=== PATIENT | male | born 1940 | race Hispanic/Latino ===

== ENCOUNTER 2017-05-17 11:01 | Observation (INO) | payer OTHER ==
[2017-05-17 12:32] LABS: Bilirubin Negative (Negative); Blood, Urine Large (Negative); Glucose, Urine (Dipstick) Negative (Negative); Ketone, Urine Negative (Negative); Nitrite Negative (Negative); Protein, Urine (Dipstick) 30 mg/dL (Neg-Trace); Urobilinogen 0.2 mg/dL (0.2-1.0)
[2017-05-17 12:34] LABS: Bacteria/HPF 2+ HPF (None Seen); Hyaline Casts/LPF 0-3 HYALINE CAST LPF (0-3 Hyaline); RBC/HPF GREATER THAN 50-TNTC HPF (0-3); Squamous Epithelial None Seen HPF (0-3)
[2017-05-17 12:38] LABS: Hematocrit 45.5 % (42.0-52.0); Mean Platelet Volume 7.5 fL (7.4-10.4); Red Blood Cell (RBC) Count 4.96 mill/uL (4.70-6.10); White Blood Cell (WBC) Count 14.1 thou/uL (4.8-10.8)
[2017-05-17 12:52] LABS: Lactic Acid - Sepsis 1.3 mmol/L (0.5-2.2)
[2017-05-17 12:56] LABS: Band 2 % (5-11); Neutrophil 92 % (42-75)
[2017-05-17 12:57] LABS: ALT (SGPT) 12 U/L (8-55); AST (SGOT) 12 U/L (5-34); Alkaline Phosphatase 108 U/L (40-150); Anion Gap 11 mmol/L (10-20); BUN (Urea Nitrogen) 24 mg/dL (8.4-25.7); Bilirubin, Total 1.3 mg/dL (0.2-1.2); Calc. Creatinine Clearance 0 mL/min (70-130); Carbon Dioxide 27 mmol/L (23-31); Chloride 102 mmol/L (98-107); Estimated GFR-MDRD 72; Globulin 3.5 g/dL (2.4-3.5); Protein, Total 7.4 g/dL (5.8-8.1)
[2017-05-17] MEDS ORDERED: Nitroglycerin 0.4 MG TAB (25 Tab Bottle) ONE (13:53)
--- NOTE | 2017-05-17 14:44 | RAD ---
CHEST 1 VIEW: HISTORY: Chest pain. COMPARISON: Chest 1 view 04/12/16. FINDINGS: The heart size is enlarged. Cardiac device is similar. No pneumothorax. Faint right lower lobe airspace IMPRESSION: Faint right lower lobe airspace opacity may represent atelectasis or infection. Followup recommende d. POS: [facility]
[2017-05-17 15:14] LABS: CK (CPK) 38 U/L (30-200); Lipase 7 U/L (8-78)
[2017-05-17 15:22] LABS: Troponin I 0.035 ng/mL (< 0.028)
[2017-05-17] MEDS ORDERED: cefTRIAXone\\ROCEPHIN 2 GM VIAL ONE (15:33)
--- NOTE | 2017-05-17 15:47 | HP ---
PRIMARY CARE PHYSICIAN: [facility], so this is city call admission. REASON FOR ADMISSION: Urinary tract infection, altered mental status and chest pain. HISTORY OF PRESENT ILLNESS: A 76-year-old male who has history of benign enlargement of prostate and he has chronic indwelling catheter. His catheter is underneath of his penis. He required almost 4 emergency room visits for catheter related problem. At this time, he came to the ER because he was having dysuria. His urine was foul smelling and he was not able to void for about 1 day. Today, he was appeared altered and that is why the patient's son brought him to the emergency room and when he was coming to the emergency room, he complained mild chest pain. He denies any angina. He denies any shortness of breath, orthopnea, PND or leg swelling. He denies any constipation or diarrhea. He denies any fever or chills. Patient does have problems with leakage of urine around catheter. Patient was recently given medications Flomax, which he is taking every day basis for the last 2-3 months. Patient was given another medication, which seems to be Proscar, which he finished and he is no longer taking those medications. At this point, the patient worried about he is unable to void through the catheter. The patient's family member reports that last time he has similar problem and at that time, he required a Alonso catheter changed and problem was solved. REVIEW OF SYSTEMS: The following complete review of systems was negative, unless otherwise mentioned in the HPI or below: CONSTITUTIONAL: Weight loss or gain, ability to conduct usual activities. SKIN: Rash, itching. EYES: Double vision, pain. ENT/MOUTH: Nose bleeding, neck stiffness, pain, tenderness. CARDIOVASCULAR: Palpitations, dyspnea on exertion, orthopnea. RESPIRATORY: Shortness of breath, wheezing, cough, hemoptysis, fever or night sweats. GASTROINTESTINAL: Poor appetite, abdominal pain, heartburn, nausea, vomiting, constipation, or diarrhea. GENITOURINARY: Urgency, frequency, dysuria, nocturia. MUSCULOSKELETAL: Pain, swelling. NEUROLOGIC/PSYCHIATRIC: Anxiety, depression. ALLERGY/IMMUNOLOGIC: Skin rash, bleeding tendency. Please see my HPI for pertinent positive and negative. All other review of systems reviewed and negative except as mentioned in the HPI. PAST MEDICAL HISTORY: History of [place] in 2015, history of systolic congestive heart failure secondary to ischemic cardiomyopathy, coronary artery disease requiring CABG as well as stent placement, hypertension, dyslipidemia, COPD, history of tobacco abuse disorder, benign enlargement of prostate, recurrent urinary tract infection due to indwelling catheter. PAST SURGICAL HISTORY: CABG x4, stent placement x2 in 2014, AICD placement, hernia repair, appendicectomy. PAST PSYCHIATRIC HISTORY: Reviewed and negative. ALLERGIES: No known drug allergies. FAMILY HISTORY: The patient's father had prostate cancer and mother had Alzheimer's dementia. One brother also had a stroke by age of 69. SOCIAL HISTORY: Patient has a [id number] smoking history. He denies any alcohol or other illicit drug abuse. He lives at home with his son. EMERGENCY ROOM COURSE: The patient is given nitroglycerin 0.4 mg, aspirin 324 mg and IV fluid. CURRENT HOME MEDICATIONS: The patient does not have any medication with him in the emergency room at this point and patient's son is present at bedside, who also does not know the name of medication. He is going to obtain all medication bottle from his home, at that time we will review. PHYSICAL EXAMINATION: VITAL SIGNS: Currently, blood pressure 113/69, pulse 82, respiratory rate 17, temperature 97.6, saturation 98% on room air. Weight 72.5 kilograms. GENERAL: Patient is currently alert, awake, no obvious acute distress. HEAD: Normocephalic, atraumatic. Eyes: Pupils round, reactive to light. Extraocular muscle intact. ENT: Oropharynx within normal limits. Moist mucous membranes. No oral lesions. No pharyngeal erythema, no exudate. NECK: Supple. Range of motion is normal. No meningeal signs of irritation. LUNGS: Clear to auscultation without any rhonchi or rales. CARDIAC: S1, S2 regular. No murmur elicited, no gallop, no rub. ABDOMEN: Soft, bowel sounds present, nontender, nondistended. No organomegaly , no mass. Mild suprapubic discomfort noted. BACK: Unremarkable, no CVA tenderness. GENITALIA: The patient does have a Alonso catheter underneath of penis. Patient has hypospadias. NEUROLOGIC: Nonfocal examination. The patient moves all 4 limbs. Plantar bilateral flexor. No focal neurological deficit noted. Patient's speech is normal. Per patient's son, patient is in his normal function. SKIN: No skin rash. HEMATOLOGIC: No lymphadenopathy. PSYCHIATRIC: Normal affect. SIGNIFICANT LABS: 1. CBC: WBC 14.1, hemoglobin 15.0, platelets 167,000 with bandemia. BMP: Sodium 136, potassium 4.4, chloride 102, carbon dioxide 27, BUN 24, creatinine 1.0, glucose 128, calcium 10.0. Lactic acid 1.3. 2. LFT: AST 12, ALT 12, alkaline phosphatase 108, albumin 3.9. Urinalysis suggestive of urinary tract infection with large blood and bacteria 2+. Alcohol level less than 10. 3. EKG showing sinus rhythm, bundle branch block pattern, which is old. No change from previous. Chest x-ray based on my review, no acute cardiopulmonary process. There is question of mild right lower lobe infiltration noted. ASSESSMENT AND PLAN/IMPRESSION: 1. Urinary tract infection related with chronic indwelling Alonso catheter. This patient has dysuria. He has difficulty voiding as well as he has underlying benign enlargement of prostate and hypospadias. At this point, the patient requires recurrent emergency room visits for recurrent urinary catheter related problem. We will consult Urology for their opinion. We will start empiric antibiotic therapy with Rocephin 1 gram q.24 hours and Levaquin 500 mg IV daily. We will follow up on urine culture result. 2. Right lower lobe infiltration, suspected for pneumonia. This patient does not have any symptoms of pneumonia at this point and he complained of some chest pain. At this point, the patient is on Rocephin and Levaquin for urinary tract infection that should cover for pneumonia as well. 3. Chest pain. We will do serial cardiac enzymes x3 to rule out acute coronary syndrome. This patient's chest pain description is very vague and does not sound like any anginal or cardiac pain. We will not perform more further testing other than serial cardiac enzyme and monitoring to telemetry floor. We will continue with aspirin 325 mg p.o. daily and check lipid profile tomorrow morning for risk stratification. 4. History of coronary artery disease requiring coronary artery bypass graft. Patient will be on aspirin therapy. We will also obtain the patient's home medication and once we will verify patient's home medications, then will continue while in hospital as well. Currently, problem is stable. We will monitor on telemetry floor. 5. Dyslipidemia. We will resume patient's home medication for dyslipidemia. 6. History of chronic systolic heart failure. The patient does not have any echocardiography in the last several years. We will repeat echocardiography to assess ejection fraction and other structural abnormality. We will monitor on telemetry floor. Patient is currently euvolemic. 7. Tobacco abuse disorder. Smoking cessation counseling given. Healthy lifestyle measures discussed with the patient. 8. Benign enlargement of prostate. We will continue the Flomax 0.4 mg p.o. daily and will also add Proscar 5 mg p.o. daily. 9. Hypospadias. Patient does have a Alonso catheter through that, but this patient may need evaluation for suprapubic catheter placement. We are consulting Urology for this problem as well. 10. Deep venous thrombosis prophylaxis not needed because we are expecting discharge in 24 hours. 11. Gastrointestinal prophylaxis, Pepcid 20 mg p.o. b.i.d. 12. Code status: The patient is FULL CODE. Patient's son is surrogate decision maker. Disposition plan based on clinical course, we are expecting patient's stay in hospital for 24-48 hours. Plan of care discussed with the patient and patient' s son at bedside in the emergency room. LAURIE
[2017-05-17 15:50] LABS: Troponin I 0.036 ng/mL (< 0.028)
[2017-05-17 15:56] LABS: Amphetamine Not Detected (NotDetected); Methadone Not Detected (NotDetected); Methamphetamine Not Detected (NotDetected)
[2017-05-17] MEDS ORDERED: Gentamicin Sulfate 360 MG in Sodium Chloride 0.9% 100 ML IVPB SCH (16:15)
[2017-05-17] MEDS ORDERED: Zolpidem Tartrate 5 MG TAB PO PRN (17:05)
[2017-05-17] MEDS ORDERED: Diabetic Tussin 200 MG/10 ML UDCUP PO PRN (17:05)
[2017-05-17] MEDS ORDERED: Loratadine 10 MG TAB PO PRN (17:05)
[2017-05-17] MEDS ORDERED: Nitroglycerin 0.4 MG TAB (25 Tab Bottle) SL PRN (17:05)
[2017-05-17] MEDS ORDERED: Loperamide HCl 2 MG CAP PO PRN (17:05)
[2017-05-17] MEDS ORDERED: Ondansetron HCl/PF 4 MG/2 ML Vial IVP PRN (17:05)
[2017-05-17] MEDS ORDERED: Mag-Al 1200 mg/1200 mg/30 ML UDCUP PO PRN (17:05)
[2017-05-17] MEDS ORDERED: Sodium Chloride 0.65% Nasal 44 ML BOT EA NARE PRN (17:05)
[2017-05-17] MEDS ORDERED: hydrALAZINE 20 MG/ML VIAL SLOW IVP PRN (17:05)
[2017-05-17] MEDS ORDERED: Eucerin (Mineral Oil/Petrolatum,White) 30 gm Jar TOP PRN (17:05)
[2017-05-17] MEDS ORDERED: HYDROcodone/Acetaminophen 5/325 mg Tablet PO PRN (17:05)
[2017-05-17] MEDS ORDERED: Artificial Tears 18 DROP/0.9 ML EA EYE PRN (17:05)
[2017-05-17] MEDS ORDERED: Acetaminophen 325 MG TAB PO PRN (17:05)
[2017-05-17] MEDS ORDERED: cefTRIAXone\\ROCEPHIN 1 GM in Sodium Chloride 0.9% 100 ML IVPB SCH (17:05)
[2017-05-17] MEDS ORDERED: Ondansetron ODT 4 MG TAB PO PRN (17:05)
[2017-05-17] MEDS ORDERED: Senokot 8.6 MG TAB PO PRN (17:05)
[2017-05-17] MEDS ORDERED: Milk Of Magnesia 30 ML UDCUP PO PRN (17:05)
[2017-05-17] MEDS ORDERED: cefTRIAXone\\ROCEPHIN 1 GM, Admixture Fee 1 EACH in Sodium Chloride 0.9% 100 ML IVPB SCH (18:30)
[2017-05-17 19:10] LABS: Troponin I 0.041 ng/mL (< 0.028)
[2017-05-17 19:16] VITALS: BMI 22.1
[2017-05-17 19:22] LABS: Bilirubin Negative (Negative); Blood, Urine Large (Negative); Glucose, Urine (Dipstick) Negative (Negative); Ketone, Urine Negative (Negative); Nitrite Positive (Negative); Protein, Urine (Dipstick) 30 mg/dL (Neg-Trace)
[2017-05-17 19:24] LABS: Bacteria/HPF Rare-Few HPF (None Seen); Hyaline Casts/LPF 0-3 HYALINE CAST LPF (0-3 Hyaline); RBC/HPF GREATER THAN 50-TNTC HPF (0-3); Squamous Epithelial None Seen HPF (0-3)
[2017-05-17 19:38] LABS: Yeast-All Forms None Seen HPF (None Seen)
[2017-05-17] MEDS: Famotidine 20 MG TAB PO SCH (20:06)
[2017-05-17] MEDS ORDERED: Tamsulosin HCl 0.4 MG CAP PO SCH (21:00)
[2017-05-17 22:17] LABS: Troponin I 0.039 ng/mL (< 0.028)
[2017-05-18 03:56] VITALS: TEMP 98.6
[2017-05-18 04:21] LABS: #Basophils 0.1 thou/uL (0.0-0.2); #Eosinphils 0.4 thou/uL (0.0-0.7); #Monocytes 0.6 thou/uL (0.11-0.59); #Neutrophils 5.9 thou/uL (1.40-6.50); %Basophils 0.7 % (0.0-1.0); %Eosinophils 4.5 % (0.0-10.0); %Lymphocytes 12.9 % (21.0-51.0); %Monocytes 7.7 % (0.0-10.0); Hematocrit 39.9 % (42.0-52.0); Mean Platelet Volume 7.2 fL (7.4-10.4); Red Blood Cell (RBC) Count 4.36 mill/uL (4.70-6.10); White Blood Cell (WBC) Count 7.9 thou/uL (4.8-10.8)
[2017-05-18 04:32] LABS: Anion Gap 11 mmol/L (10-20); BUN (Urea Nitrogen) 20 mg/dL (8.4-25.7); Calc. Creatinine Clearance 66 mL/min (70-130); Carbon Dioxide 24 mmol/L (23-31); Chloride 105 mmol/L (98-107); Cholesterol 98 mg/dl (< 200 Desired); Estimated GFR-MDRD Greater than 90; LDL Cholesterol, Calculated 60 mg/dL
[2017-05-18 08:02] VITALS: BP 116/56
[2017-05-18] MEDS: Famotidine 20 MG TAB PO SCH (08:29)
[2017-05-18] MEDS ORDERED: Finasteride 5 MG TAB PO SCH (09:00)
[2017-05-18] MEDS ORDERED: Aspirin 325 MG TAB PO SCH (09:00)
[2017-05-18] MEDS ORDERED: Saccharomyces boulardii 250 MG CAP PO SCH (09:00)
--- NOTE | 2017-05-18 11:47 | DIS ---
DATE OF ADMISSION: 05/17/2017 DATE OF DISCHARGE: 05/18/2017 PRIMARY CARE PHYSICIAN: [facility]. DISCHARGE DISPOSITION: Home. PRIMARY DISCHARGE DIAGNOSES: 1. Urinary tract infection related with chronic indwelling Alonso catheter. 2. Alonso catheter malfunction with subsequent urinary retention. 3. Hypospadias. SECONDARY DISCHARGE DIAGNOSES: Benign enlargement of prostate, coronary artery disease, chronic sys tolic heart failure, ischemic cardiomyopathy, chronically elevated troponin. PRIMARY PROCEDURE/OPERATION: Catheter exchange. RADIOLOGICAL INVESTIGATION: Chest x-ray was normal. SIGNIFICANT LABS: WBC 7.9, hemoglobin 13.2, platelets 144. BMP normal. Electrolytes normal. LDL 60. Troponin 0.039, lipase 7. LFTs normal. Urine culture grew E. coli. Blood culture negative. DISCHARGE MEDICATIONS: Ciprofloxacin 500 mg p.o. b.i.d. for 10 days, aspirin 81 mg p.o. daily, Lipi tor 80 mg p.o. at bedtime, Coreg 25 mg p.o. b.i.d., Proscar 5 mg p.o. daily, Lasix 80 mg p.o. b.i.d. , Imdur 60 mg p.o. daily, lisinopril 40 mg p.o. b.i.d., potassium chloride 20 mEq p.o. b.i.d., Floma x 0.4 mg p.o. at bedtime. CONTRAINDICATIONS: None. CODE STATUS: FULL CODE. INPATIENT CONSULTANTS: Dr. Mejia Sanchez was consulted while in hospital. TEST RESULTS PENDING ON DISCHARGE: None. ALLERGIES: No known drug allergy. DISCHARGE PLAN: Post hospital, the patient will follow up with primary care physician at [facility]. HOSPITAL COURSE: A 76-year-old male who was having dysuria as well as urinary retention. This tommie ent has hypospadias and he has chronic indwelling Alonso catheter that was appeared to be clogged and that is why he was having retention. We did urinary catheter exchange and that problem was solved, but his urinalysis was consistent with UTI. His urine culture is growing E. coli. Based on previo culture and sensitivity result, we prescribed Cipro on discharge. While in hospital, we gave him Rocephin and Levaquin. Patient also complained of chest pain and that is why we did serial cardiac enzyme that remained tro ponin elevated, which is chronic for him, so he did not have any further chest pain. He had mild al tered mental status on admission, which was also resolved. Patient is seen and examined at bedside today. Urology cleared him for discharge. PHYSICAL EXAMINATION: VITAL SIGNS: Currently, patient's temperature 98.6, pulse 77, respiratory rate 14, saturation 96%, blood pressure 116/56. Weight 132 pounds. GENERAL: The patient is currently alert, awake, no acute distress. HEAD: Normocephalic, atraumatic. LUNGS: Clear. CARDIAC: S1, S2 regular without any murmur. ABDOMEN: Soft and benign. EXTREMITIES: No edema. NEUROLOGIC: Nonfocal examination. The patient is medically stable for discharge today.
--- NOTE | 2017-05-18 14:49 | CON ---
DATE OF CONSULTATION: 05/18/2017 CHIEF COMPLAINT: Urinary retention, dysfunctional Alonso catheter. HISTORY OF PRESENT ILLNESS: Mr. Huff is a 76-year-old gentleman, who has had a Alonso catheter in place for several months. He believes he has a history of an enlarged prostate. He is being fol lowed at the [facility]. He has been placed on Proscar and Flomax. He has had some intermittent pro blems with the catheter not draining well. This was one of the reasons he presented to the emergenc y room at this time. Since admission, the catheter has been manipulated somewhat and has been drain ing fine. The patient is unsure what the long-term plan is. He has not had any voiding trials. PAST MEDICAL HISTORY: Coronary artery disease, hypospadias, BPH, and urinary retention. PAST SURGICAL HISTORY: Coronary artery bypass graft and coronary stent placement. ALLERGIES: No known drug allergies. SOCIAL HISTORY: Significant for [id number] history of smoking. Denies alcohol use. He lives at home with his son. MEDICATIONS: Aspirin 325 mg; Lipitor 40 mg in the morning and 80 mg at night; Coreg 6.25 mg, takes 25 mg twice a day; Lasix 80 mg twice a day; Flomax and finasteride. REVIEW OF SYSTEMS: Respiratory: No shortness of breath. Cardiovascular: Denies chest pain or pal pitations. Gastrointestinal: Denies chronic constipation or diarrhea. Neurologic: Denies history of stroke. Denies any extremity weakness. Genitourinary: Please see history of present illness. PHYSICAL EXAMINATION: GENERAL: He is awake and alert, he is in no distress. HEENT: Normocephalic, atraumatic. NECK: Supple, without masses. CHEST: Clear to auscultation. CARDIOVASCULAR: Regular rate and rhythm. ABDOMEN: Soft, nontender, no palpable masses. Liver and spleen are not palpable. No abdominal ten derness noted. No hernias noted. GENITOURINARY: Reveals midshaft hypospadias. Alonso catheter is in place. Scrotum: No lesions. H e has only one testicle. DIGITAL RECTAL EXAMINATION: No rectal masses. Prostate 40 grams, no nodules, no tenderness. Semin al vesicles are not palpable. The indwelling 16 Slovenian Alonso catheter was removed. He was sterilely prepped and a 16 Slovenian Alonso catheter was placed. The catheter was hand irrigated, irrigated easily and clearly. He did have s ome spasm that caused some voiding around the catheter. IMPRESSION AND PLAN: Mr. Huff is a 76-year-old gentleman with urinary retention. He has been put on medical therapy, but he has not had any voiding trials yet. I have encouraged him to follow up in our office as he is not receiving follow up for his urologic care in our office. I agree with treating him with antibiotic therapies based on culture results. His Alonso catheter was changed by me today and hand irrigated. He does have some spasms especially with bladder irrigation. They ca used voiding around the catheter. He should stay on his Flomax and finasteride.
== END 2017-05-18 11:00 | disposition home or self-care (01) ==
LOC: ERS 11:01 → INTOOBSV 15:07 → 2SW 15:07
PROVIDERS: ADMIT Internal Medicine; ATTEND Internal Medicine
DX: N39.0 Urinary tract infection, site not specified (principal); R33.8 Other retention of urine; T83.091A Other mechanical complication of indwelling urethral catheter, initial encounter; Q54.9 Hypospadias, unspecified; N40.1 Benign prostatic hyperplasia with lower urinary tract symptoms; I25.10 Atherosclerotic heart disease of native coronary artery without angina pectoris; I11.0 Hypertensive heart disease with heart failure; I50.22 Chronic systolic (congestive) heart failure; I25.5 Ischemic cardiomyopathy; R77.8 Other specified abnormalities of plasma proteins; R30.0 Dysuria; B96.20 Unspecified Escherichia coli [E. coli] as the cause of diseases classified elsewhere; R07.9 Chest pain, unspecified; R41.82 Altered mental status, unspecified; I25.2 Old myocardial infarction; R91.8 Other nonspecific abnormal finding of lung field; E78.5 Hyperlipidemia, unspecified; F17.210 Nicotine dependence, cigarettes, uncomplicated; J44.9 Chronic obstructive pulmonary disease, unspecified; Z79.82 Long term (current) use of aspirin; Z79.2 Long term (current) use of antibiotics; Z79.899 Other long term (current) drug therapy; Z95.1 Presence of aortocoronary bypass graft; Z95.818 Presence of other cardiac implants and grafts; Z96.0 Presence of urogenital implants; Z95.810 Presence of automatic (implantable) cardiac defibrillator; Z90.49 Acquired absence of other specified parts of digestive tract; Z98.890 Other specified postprocedural states; Z87.440 Personal history of urinary (tract) infections; Z80.42 Family history of malignant neoplasm of prostate; Z81.8 Family history of other mental and behavioral disorders
CPT/HCPCS: 36415; 71010; 80048; 80053; 80061; 80306; 80307; 81003; 81015; 82553; 83605; 83690; 84484; 85025; 87040; 87077; 87086; 87186; 93005; 93306; 96361; 96365; 96367; 96374; 96375; G0378; J0696; J1580; J1956; J7050

== ENCOUNTER 2017-12-21 23:08 | Inpatient (IN) | payer MEDICARE, OTHER ==
[2017-12-21 23:42] LABS: #Eosinphils 0.2 thou/uL (0.0-0.7); #Lymphocytes 1.2 thou/uL (1.20-3.40); #Monocytes 0.5 thou/uL (0.11-0.59); %Basophils 0.3 % (0.0-1.0); %Eosinophils 2.2 % (0.0-10.0); %Lymphocytes 13.6 % (21.0-51.0); %Monocytes 5.2 % (0.0-10.0); %Neutrophils 78.7 % (42.0-75.0); Hemoglobin 11.4 g/dL (14.0-18.0); Mean Corpuscular HGB CONC 32.2 g/dL (32.0-36.0); Mean Corpuscular Hemoglobin 27.9 pg (27.0-31.0); Mean Corpuscular Volume 86.6 fl (80.0-94.0); Mean Platelet Volume 8.3 fL (7.4-10.4); Platelet Count 151 thou/uL (130-400); RBC Distribution Width 16.5 % (11.5-14.5); Red Blood Cell (RBC) Count 4.08 mill/uL (4.70-6.10); White Blood Cell (WBC) Count 8.9 thou/uL (4.8-10.8)
[2017-12-22 00:02] LABS: ALT (SGPT) 41 U/L (8-55); AST (SGOT) 67 U/L (5-34); Albumin 3.5 g/dL (3.4-4.8); Alkaline Phosphatase 204 U/L (40-150); Anion Gap 16 mmol/L (10-20); BUN (Urea Nitrogen) 38 mg/dL (8.4-25.7); Bilirubin, Total 1.5 mg/dL (0.2-1.2); Calc. Creatinine Clearance 0 mL/min (70-130); Calcium 8.8 mg/dL (7.8-10.44); Carbon Dioxide 24 mmol/L (23-31); Chloride 103 mmol/L (98-107); Estimated GFR-MDRD 37; Globulin 3.1 g/dL (2.4-3.5); Glucose 101 mg/dL (83-110); Potassium 4.9 mmol/L (3.5-5.1); Protein, Total 6.6 g/dL (5.8-8.1); Sodium 138 mmol/L (136-145)
[2017-12-22 00:06] LABS: Troponin I 0.082 ng/mL (< 0.028)
[2017-12-22 00:10] LABS: CKMB 7.4 ng/mL (0-6.6)
[2017-12-22] MEDS ORDERED: Albuterol Sulfate 2.5 mg/3 ml Neb ONE (00:11)
[2017-12-22] MEDS ORDERED: DOPamine 400 MG/D5W 250 ML 250 ML ONE (00:35)
[2017-12-22 02:55] LABS: Troponin I 0.084 ng/mL (< 0.028)
[2017-12-22] MEDS ORDERED: Milk Of Magnesia 30 ML UDCUP PO PRN (04:17)
[2017-12-22] MEDS: Furosemide 100 MG/10 ML VIAL SLOW IVP SCH ×2 (06:29→13:52)
--- NOTE | 2017-12-22 07:39 | RAD ---
FRONTAL VIEW CHEST: Comparison: 05-17-17 History: Shortness of breath. FINDINGS: Enlargement of the cardiac silhouette is present with prominent pulmonary vasculature. There is inter stitial perihilar opacification bilaterally. No significant effusion or discrete pneumothorax. Evalua tion is grossly stable. IMPRESSION: Findings indicating decompensated CSF. Correlate clinically. POS: [facility]
[2017-12-22] MEDS: Heparin 5,000 UNITS/ML VIAL SC SCH ×3 (08:22→20:34)
[2017-12-22] MEDS: Finasteride 5 MG TAB PO SCH (08:23)
--- NOTE | 2017-12-22 08:43 | CON ---
DATE OF CONSULTATION: 12/22/2017 This is a 50 minute consult. Greater than 50% of the time spent at the bedside coordinating care.
--- NOTE | 2017-12-22 09:01 | CON ---
DATE OF CONSULTATION: 12/22/2017 HISTORY OF PRESENT ILLNESS: Mr. Huff is a 77-year-old male with cardiomyopathy. He says he is [facility] He was last admitted last fall. He has a chronic indwelling Alonso (not a suprapubic catheter). He has had multiple ER visits last fall. He has been seen by Dr. Cheng, which was back in 2014. Per Dr. Cheng's note, he had seen him as far back as 1989. At that time, he presented with chest pain, had an anterolateral ST elevation [place] and received TPA. He had a peak CPK of 4319, MB of 491. He had 95% mid LAD lesion at catheterization, 30% right lesion and 33% circumflex. He underwent angioplasty of the LAD lesion. He has passed a stress test and after that he was lost to follow up for a while receiving his care at [facility]. He had a myocardial infarction in 2003 and was found to have diffuse 3-vessel disease, which led to coronary artery bypass grafting x4 vessels. He has had ventricular tachycardia in the past and had a defibrillator placed in 2010. His ejection fraction in 2010 was 35%-40%. He has again lost to follow up with Dr. Cheng and seen again. He has had repeat cardiac catheterization with coronary stenting. His ejection fraction in 2013 was 25%. Apparently, he was again lost followup and says he sees a air vice marshal at the [facility]. He presents this admission complaining of 2 weeks of shortness of breath. He says he did not try to get in to see anybody. PAST MEDICAL AND SURGICAL HISTORY: He is otherwise remarkable for lipid disorder, hypertension, history of a seizure disorder, history of tonsillectomy , history of herniorrhaphy, history of removal of the testicle. FAMILY HISTORY: Negative for lung disease in early age. SOCIAL HISTORY: He is still smoking unfortunately. He is not a daily drinker. REVIEW OF SYSTEMS: Ten points otherwise negative. PHYSICAL EXAMINATION: VITAL SIGNS: His blood pressure is 102/38, heart rate 60, respiratory rate 28, oximetry is 87%-92%. HEENT: Pupils are equal. Sclerae is anicteric. NECK: Supple. LUNGS: Remarkable for crackles at both lung bases. HEART: Regular rhythm. S1 and S2 are normal. ABDOMEN: Soft and nontender. EXTREMITIES: Without clubbing, cyanosis, or edema. LABORATORY DATA AND IMAGING: White count is 8.9, hemoglobin 11.4, platelets 151 ,000. Sodium 138, potassium 4.9, chloride 103, bicarbonate 24, BUN 38, creatinine 1.78. AST 67, ALT 41, bilirubin is 1.5, alkaline phosphatase 204. Lab work BNP 6342. Chest radiograph shows findings consistent with pulmonary edema reviewed by me. IMPRESSION: 1. Congestive heart failure. 2. History of medical noncompliance. 3. Noncompliance with smoking cessation. PLAN: Gentle diuresis, serial exams. He is probably stable to move out of the Critical Care Unit to the telemetry unit. This is a 50 minute consult greater than 50% of the time spent on the unit with coordination of care. LAURIE
[2017-12-22] MEDS ORDERED: Clopidogrel Bisulfate 300 MG TAB PO SCH (09:30)
[2017-12-22] MEDS: Aspirin 81 mg Enteric Coated Tablet PO SCH (13:23)
--- NOTE | 2017-12-22 14:36 | HP ---
PRIMARY CARE PHYSICIAN: at [facility]. CHIEF COMPLAINT: Shortness of breath and increasing lower extremity edema. HISTORY OF PRESENT ILLNESS: Mr. Huff is a very pleasant 77-year-old gentleman that has a histor y of congestive heart failure. His last ejection fraction in our records was estimated at 25%-30% in 04/2017. He was in his usual state of health until about 2 weeks ago when he started noticing incre asing shortness of breath as well as increasing lower extremity edema. He had seen his examination grader in the interim and she had put him on what sounds like metolazone in addition to Lasix and which he t ook these pills every other day for 3 times. He says that this did not decrease his swelling at all. He also says that he has been feeling unsteady and feels like his legs are about to give out. He c an barely walk. He has not been able to sleep as a result of being short of breath. He denies havin g any chest pain or palpitations, but has felt congested. Due to his symptoms, he came to the emerge ncy room for evaluation. In the ER, he was found to be clinically volume overloaded with pulmonary e rosemary and is being admitted for further evaluation. The patient is being placed in the IMCU due to hi s borderline blood pressure and the need for low dose pressors in order to diurese him. REVIEW OF SYSTEMS: Constitutional: There have been no fevers, no chills, no night sweats, no weight loss. He has had decreased oral intake. HEENT: He feels dizzy when he stands up. No visual cowan es, no sore throat, rhinorrhea, neck pain, no adenopathy. Pulmonary: He has had some occasional cou gh, no wheezing, no hemoptysis. Cardiovascular: As the history of present illness. Gastrointestina l: No abdominal pain. No nausea. He has had significant diarrhea for about 2 weeks. Genitourinary : He has a chronic indwelling Alonso catheter, history of frequent urinary tract infections as a resu lt. No dysuria, no frequency. Musculoskeletal: He denies joint pains, but he has had some generali zed weakness in his extremities. Neurologic: No focal weakness, numbness, no seizures. Psychiatric : No symptoms of anxiety or depression. Skin and Integument: No skin changes. No rash. PAST MEDICAL HISTORY: He has a history of congestive heart failure with chronic systolic heart failu re, coronary artery disease, BPH, hyperlipidemia. He denies having high blood pressure or COPD, whic h were in his previous records. PAST SURGICAL HISTORY: He has had a coronary artery bypass grafting x4, stent x2, AICD placed, herni a repair and he had one of his testicles removed. He says he has never had an appendectomy which was in his records. ALLERGIES: No known drug allergies. SOCIAL HISTORY: He continues to smoke. He last smoked about 2 weeks ago. He has a [id number] his tory of smoking. Occasional alcohol use. He is , has 2 children. CODE STATUS: FULL CODE and his surrogate decision maker is his daughter, Yaneth Veronica. FAMILY HISTORY: Significant for colon cancer. CURRENT MEDICATIONS: Include Lasix 80 mg twice a day, Flomax 0.4 mg daily, loratadine 10 mg daily, i sosorbide mononitrate extended release 60 mg daily, finasteride 5 mg daily, carvedilol 12.5 mg twice a day, atorvastatin 40 mg daily, aspirin 81 mg daily. PHYSICAL EXAMINATION: GENERAL: He is alert and oriented. He appears to be in no acute distress. VITAL SIGNS: His blood pressure was 94 systolic, diastolic is running in the 50s, heart rate 63, res piratory rate of 22, and temperature is 98.2. HEENT: Pupils are equal, round, and reactive. Extraocular muscles are intact. His sclerae are anic teric. Throat: No erythema, no exudates. NECK: No adenopathy, no bruits. LUNGS: He has got rhonchi and rales throughout. There was no wheezing. CARDIOVASCULAR: He had a normal S1, S2. I did not appreciate an S3 or S4. No murmurs, clicks, or r ubs. ABDOMEN: Slightly obese, it is soft, it is nontender, nondistended. Positive for bowel sounds. No rebound, no guarding. EXTREMITIES: He has got chronic venous stasis changes. The skin is thick and leathery, mildly eryth ematous and he has got 1 to 2+ pitting edema. He has got hammertoe deformities and decrease in his d istal pulses. NEUROLOGIC: The exam is nonfocal. LABORATORY RESULTS: Chest x-ray showed cardiomegaly with increased pulmonary vascular markings and b lunting of the costophrenic angles. His rhythm was a paced rhythm. White blood cell count was 8.9, hemoglobin 11.4, hematocrit is 35.3, and platelet count is 151. Sodium 138, potassium 4.9, chloride is 103, CO2 is 24, BUN of 38, creatinine 1.78, glucose is 101. Troponin is 0.082. ASSESSMENT AND PLAN: This is a pleasant 77-year-old gentleman who presents with increasing lower ext remity edema, increasing shortness of breath and radiographic findings consistent with volume overloa d. This likely represents acute on chronic systolic heart failure. He is being admitted to the [facility] . He will be placed on dopamine and once his blood pressures are improved, IV diuretics and further recommendations as per Cardiology. His blood pressure is too low for nitrates. He also has what sharon ears to be in acute renal failure, likely cardiorenally mediated. Hopefully, this will improve with diuresis. The patient also will be placed on deep venous thrombosis and gastrointestinal prophylaxis and he has a chronic indwelling catheter for his history of benign prostatic hypertrophy and we will continue finasteride and Flomax.
[2017-12-22 16:09] LABS: Hemoglobin 11.4 g/dL (14.0-18.0); Platelet Count 135 thou/uL (130-400)
[2017-12-22 16:12] LABS: INR-International Normal Ratio 1.3; Prothrombin Time 16.7 SEC (12.0-14.7)
--- NOTE | 2017-12-22 16:27 | CON ---
DATE OF CONSULTATION: 12/22/2017. REASON FOR CONSULTATION: Congestive heart failure. PRIMARY SENIOR MANAGER MERGERS & ACQUISITIONS: Dr. Cheng. HISTORY OF PRESENT ILLNESS: Mr. Huff is a very pleasant 77-year-old man with a long cardiac his tory, admitted with congestive heart failure. Mr. Huff has a history of multiple stent implantations as well as coronary artery bypass graftin g. His last catheterization that I see in the chart was done on 06/2014 that was done by Dr. Philipp castellanos. At that time, the patient was found to have 3-vessel disease with previous internal mammary arter y bypass as well as vein graft in place. The patient had stents implanted. He had the following fin dings, KOVACS to the LAD, patent LAD was totally occluded distally, apical LAD fills retrograde from th e septal branch of the LAD, graft to the ramus was patent with 80% distal to the insertion. Next, di agonal 1 to left radial artery, piggyback to the ramus graft patent and posterior descending artery g raft patent. The patient had stents placed in the ramus distal to the graft insertion and stent plac ed in the proximal LAD into a large septal perforating artery. The patient was admitted last night with difficulty breathing and was found to be in congestive heart failure. He was admitted to the Intensive Care Unit. The patient is diuresed only modestly since he has been here, but he is feeling better. He is not having chest pain, denied any chest pain last night. MEDICATIONS: Prior to admission, the patient was taking, 1. Aspirin. 2. Lisinopril 20 mg tablet, it is listed as 40 mg twice a day. 3. Atorvastatin 80 mg a day. 4. Furosemide. 5. Potassium 6. Carvedilol. 7. Cipro. 8. Finasteride. 9. Tamsulosin. These medicines will need to be confirmed. ALLERGIES: None known. REVIEW OF SYSTEMS: Constitutional: No significant weight gain or loss. Vision: No changes. Heari ng: No changes. Pulmonary: No cough or wheezing. Gastrointestinal: No nausea, vomiting, or diarr hea. Skin: No rashes. Neurologic: No unilateral weakness or numbness. Psychiatric: No unusual d epression or anxiety. Hematologic: No unusual bruising. Genitourinary: No burning with urination. He does have a Alonso catheter in place. FAMILY HISTORY: Noncontributory. PHYSICAL EXAMINATION: GENERAL: He is a pleasant elderly gentleman, looks somewhat older than his chronologic age of 77. VITAL SIGNS: His blood pressure is 100/42, pulse 60, it is atrial paced. NECK: Neck veins are normal. Carotid normal upstrokes. LUNGS: Clear. CARDIAC: Normal S1, normal S2. ABDOMEN: Soft, nontender. EXTREMITIES: No clubbing or cyanosis. There is mild peripheral edema. SKIN: Warm and dry. IMAGING: EKG, atrial paced ventricular sensed rhythm with a very wide right bundle branch block [place]. Chest x-ray shows dual chamber device in place, it looks like a defibrillator. There is pulmon caio vascular congestion with evidence of heart failure. PERTINENT LABORATORY DATA: Creatinine is 1.78. Troponin peak 0.082. BNP 6342. Most recent ejectio n fraction of 20%-25%. ASSESSMENT: 1. Congestive heart failure, systolic, acute on chronic. 2. Underlying coronary artery disease. 3. Renal insufficiency, stage 3. 4. Right bundle branch block. 5. Previous pacemaker defibrillator. PLAN: 1. Hold lisinopril and carvedilol now due to relatively low blood pressure. Resume his blood pressu re allows. 2. Intravenous diuresis. 3. Dr. Cheng will resume care tomorrow.
--- NOTE | 2017-12-22 16:46 | PDOC.PN ---
- Subjective Encounter Start Date: 12/22/17 Encounter Start Time: 16:40 Subjective: f/u for acute/chronic systolic CHF with EF 25-30% on IV Lasix. Feels -: better and diuresing appropriately. - Objective Resuscitation Status: Resuscitation Status FULL:Full Resuscitation MAR Reviewed: Yes Vital Signs & Weight: Vital Signs (12 hours) Temp Pulse Pulse Pulse Resp BP BP 12/22/17 15:40 60 18 12/22/17 12:45 97.4 F L 66 16 12/22/17 10:43 60 86 99/47 L 105/46 L 12/22/17 10:41 98.5 F 12/22/17 07:25 98.5 F 60 15 12/22/17 07:00 98.5 F 12/22/17 05:55 97.2 F L 62 22 H BP Pulse Ox Pulse Ox 12/22/17 15:40 96/53 L 100 12/22/17 12:45 98/52 L 96 12/22/17 10:43 100 12/22/17 10:41 12/22/17 07:25 98 12/22/17 07:00 12/22/17 05:55 96 Weight Admit Weight 143 lb Weight 143 lb 4.807 oz Most Recent Monitor Data Heart Rate from ECG 60 NIBP 108/58 NIBP BP-Mean 78 Respiration from ECG 18 SpO2 100 I&O: 12/21/17 12/22/17 12/23/17 06:59 06:59 06:59 Intake Total 0 960 Output Total 350 695 Balance -350 265 Result Diagrams: 12/22/17 15:56 12/21/17 23:30 Additional Labs: Laboratory Tests 12/21/17 12/21/17 12/21/17 23:30 23:30 23:30 Hgb 11.4 L Hct 35.3 L Troponin I 0.082 H B-Natriuretic Peptide 6342.0 H 12/22/17 12/22/17 12/22/17 02:16 05:21 05:21 Hgb Hct Troponin I 0.084 H 0.070 H B-Natriuretic Peptide 4412.9 H Radiology Reviewed by me: Yes (PCXR - pulm edema bilat) EKG Reviewed by me: Yes (Tele - A-paced) Phys Exam - Physical Examination Constitutional: NAD HEENT: PERRLA, moist MMs, sclera anicteric, oral pharynx no lesions Neck: no nodes, no JVD, supple, full ROM bibasilar crackles Respiratory: no wheezing S1, S2 Cardiovascular: RRR, no significant murmur, no rub, gallop Gastrointestinal: soft, non-tender, no distention, positive bowel sounds BLE edema Musculoskeletal: pulses present, edema present Neurological: non-focal, normal sensation, moves all 4 limbs Psychiatric: normal affect, A&O x 3 Skin: normal turgor, cap refill <2 seconds Dx/Plan (1) Acute on chronic systolic CHF (congestive heart failure) Code(s): I50.23 - ACUTE ON CHRONIC SYSTOLIC (CONGESTIVE) HEART FAILURE Status : Acute Comment: EF 25-30%, Lasix IV 60mg BID, consider repeat 2D echo, Palliative care consult (2) Hypotension Status: Acute Comment: Likely due to depressed EF, hold antihypertensives, serial monitoring (3) Elevated troponin Code(s): R74.8 - ABNORMAL LEVELS OF OTHER SERUM ENZYMES Status: Chronic Comment: Chronic demand ischemia given cardiomyopathy, medical mgmt (4) Ischemic cardiomyopathy Code(s): I25.5 - ISCHEMIC CARDIOMYOPATHY Status: Chronic Comment: Continue ASA, Plavix, Lipitor, ? candidate for Entresto (5) MARCIAL (acute kidney injury) Code(s): N17.9 - ACUTE KIDNEY FAILURE, UNSPECIFIED Status: Acute Comment: Likely cardiorenal syndrome, avoid nephrotoxic meds and contrast exposure, serial creatinine (6) CAD (coronary artery disease) Code(s): I25.10 - ATHSCL HEART DISEASE OF [place] CORONARY ARTERY W/O ANG PCTRS Status: Chronic Comment: Continue ASA, Plavix, Lipitor - Plan PT/OT, medical social consultant Stable currently -: Continue diuresis with Lasix 60mg IV BID -: Continue ASA/Plavix -: Hold all antihypertensives due to hypotension -: AM lab: BMP, CBC * Consider Palliative Care consult
[2017-12-22] MEDS: Atorvastatin Calcium 40 MG TAB PO SCH (20:34)
[2017-12-22] MEDS: Tamsulosin HCl 0.4 MG CAP PO SCH (20:34)
[2017-12-23 05:24] LABS: #Eosinphils 0.2 thou/uL (0.0-0.7); #Monocytes 0.3 thou/uL (0.11-0.59); #Neutrophils 5.9 thou/uL (1.40-6.50); %Basophils 0.1 % (0.0-1.0); %Eosinophils 2.5 % (0.0-10.0); %Lymphocytes 13.7 % (21.0-51.0); %Monocytes 4.6 % (0.0-10.0); %Neutrophils 79.1 % (42.0-75.0); Hemoglobin 11.3 g/dL (14.0-18.0); Mean Corpuscular HGB CONC 30.2 g/dL (32.0-36.0); Mean Corpuscular Hemoglobin 26.1 pg (27.0-31.0); Mean Corpuscular Volume 86.5 fl (80.0-94.0); Mean Platelet Volume 8.5 fL (7.4-10.4); Platelet Count 148 thou/uL (130-400); RBC Distribution Width 16.5 % (11.5-14.5); Red Blood Cell (RBC) Count 4.34 mill/uL (4.70-6.10); White Blood Cell (WBC) Count 7.4 thou/uL (4.8-10.8)
[2017-12-23] MEDS: Furosemide 100 MG/10 ML VIAL SLOW IVP SCH ×2 (05:35→13:48)
[2017-12-23 05:49] LABS: Anion Gap 14 mmol/L (10-20); BUN (Urea Nitrogen) 37 mg/dL (8.4-25.7); Calc. Creatinine Clearance 39 mL/min (70-130); Calcium 9.1 mg/dL (7.8-10.44); Carbon Dioxide 23 mmol/L (23-31); Chloride 105 mmol/L (98-107); Estimated GFR-MDRD 47; Glucose 87 mg/dL (83-110); Potassium 4.2 mmol/L (3.5-5.1); Sodium 138 mmol/L (136-145)
--- NOTE | 2017-12-23 09:23 | CT ---
CT OF THE HEAD WITHOUT CONTRAST: Date: 12/23/17 COMPARISON: 11/17/14. HISTORY: Laceration, fall, on blood thinners, head trauma, and pain. TECHNIQUE: Serial axial CT imaging at 5 mm intervals from vertex through skull base without contrast. FINDINGS: The imaged paranasal sinuses and mastoid air cells are well aerated. There is no displaced calvarial fracture. There is a focal area of soft tissue swelling in the right frontal scalp suggesting right f rontal laceration. There is mild diffuse cerebral volume loss. There is periventricular deep and subcortical white matte r hypodensity, evidence of small vessel disease. Foci of hypodensities are noted in the cerebellar he mispheres, right greater than left, suggesting areas of prior ischemia, unchanged. No intracranial he morrhage, midline shift, or mass effect. IMPRESSION: Findings suggesting a frontal scalp laceration on the right with no associated intracranial hemorrhag e or calvarial fracture. Chronic findings as described above. POS: [facility]
[2017-12-23] MEDS: Finasteride 5 MG TAB PO SCH (09:49)
[2017-12-23] MEDS: Clopidogrel Bisulfate 75 MG TAB PO SCH (09:49)
[2017-12-23] MEDS: Aspirin 81 mg Enteric Coated Tablet PO SCH (09:49)
[2017-12-23] MEDS: Heparin 5,000 UNITS/ML VIAL SC SCH ×2 (09:50→15:08)
--- NOTE | 2017-12-23 15:51 | PRG ---
DATE OF SERVICE: 12/23/2017 Mr. Huff is afebrile, heart rate 60, respiratory rate 14, oximetry is 95 on room air, blood pres sure 106/66. Apparently, he fell. This morning, head CT shows a scalp laceration, but no brain hemo rrhage. Fortunately, he is on subcu heparin and not intravenous heparin. No fracture was seen. IMPRESSION: Congestive heart failure with a history of medical noncompliance and lost to follow up s everal different times, and Dr. Cheng says he sees a small business representative at the [place] now. He appears to be stable from a pulmonary standpoint, it is unlikely that he will be compliant with smoking cessation. We will sign off.
--- NOTE | 2017-12-23 16:50 | PDOC.PN ---
- Subjective Encounter Start Date: 12/23/17 Encounter Start Time: 16:40 Subjective: f/u s/p fall this am with forehead laceration. CT brain negative for ICH. -: Remains on ASA/Plavix and previous Heparin for DVT ppx. No new complaint -: other than headache. No SOB, fever, cough. No LOC. - Objective Resuscitation Status: Resuscitation Status FULL:Full Resuscitation MAR Reviewed: Yes Vital Signs & Weight: Vital Signs (12 hours) Temp Temp Pulse Pulse Pulse Resp Resp 12/23/17 12:00 61 14 12/23/17 08:05 96 F L 62 20 12/23/17 08:00 96 F L 62 20 12/23/17 07:22 96.1 F L 69 62 16 Resp BP BP BP Pulse Ox Pulse Ox Pulse Ox 12/23/17 12:00 117/57 L 95 12/23/17 08:05 96/46 L 100 12/23/17 08:00 100 12/23/17 07:22 16 106/66 96/46 L 100 100 Weight Admit Weight 143 lb Weight 143 lb 4.807 oz Most Recent Monitor Data Heart Rate from ECG 60 NIBP 108/58 NIBP BP-Mean 78 Respiration from ECG 18 SpO2 100 I&O: 12/22/17 12/23/17 12/24/17 06:59 06:59 06:59 Intake Total 0 960 Output Total 350 695 800 Balance -350 265 -800 Result Diagrams: 12/23/17 04:08 12/23/17 04:08 Additional Labs: Laboratory Tests 12/21/17 12/21/17 12/21/17 23:30 23:30 23:30 Hgb 11.4 L Hct 35.3 L Creatinine 1.78 H Troponin I B-Natriuretic Peptide 6342.0 H 12/21/17 12/22/17 12/22/17 23:30 02:16 05:21 Hgb Hct Creatinine Troponin I 0.082 H 0.084 H 0.070 H B-Natriuretic Peptide 12/22/17 12/23/17 12/23/17 05:21 04:08 04:08 Hgb Hct Creatinine Troponin I 0.070 H B-Natriuretic Peptide 4412.9 H 6174.1 H Radiology Reviewed by me: Yes (CT brain - no acute intracranial process) EKG Reviewed by me: Yes (Tele - A-paced) Phys Exam - Physical Examination Constitutional: NAD HEENT: PERRLA, moist MMs, sclera anicteric, oral pharynx no lesions Neck: no nodes, no JVD, supple, full ROM occasional wheeze, no crackles, diminished in bases S1, S2 Cardiovascular: RRR, no significant murmur, no rub, gallop Gastrointestinal: soft, non-tender, no distention, positive bowel sounds Musculoskeletal: no edema, pulses present Neurological: normal sensation, moves all 4 limbs Psychiatric: normal affect, A&O x 3 Deviation from normal: R forehead laceration, stellate, + bleeding , approx 2 cm Skin: normal turgor, cap refill <2 seconds Dx/Plan (1) Acute on chronic systolic CHF (congestive heart failure) Code(s): I50.23 - ACUTE ON CHRONIC SYSTOLIC (CONGESTIVE) HEART FAILURE Status : Acute Comment: Improved, EF 25-30%, decrease Lasix 40mg IV daily, consider repeat 2D echo (2) Hypotension Status: Acute Comment: Likely due to depressed EF, hold antihypertensives, serial monitoring (3) Elevated troponin Code(s): R74.8 - ABNORMAL LEVELS OF OTHER SERUM ENZYMES Status: Chronic Comment: Chronic demand ischemia given cardiomyopathy, medical mgmt (4) Ischemic cardiomyopathy Code(s): I25.5 - ISCHEMIC CARDIOMYOPATHY Status: Chronic Comment: Continue ASA, Plavix, Lipitor, ? candidate for Entresto (5) MARCIAL (acute kidney injury) Code(s): N17.9 - ACUTE KIDNEY FAILURE, UNSPECIFIED Status: Acute Comment: Likely cardiorenal syndrome, avoid nephrotoxic meds and contrast exposure, serial creatinine, mild improvement (6) CAD (coronary artery disease) Code(s): I25.10 - ATHSCL HEART DISEASE OF [place] CORONARY ARTERY W/O ANG PCTRS Status: Chronic Comment: Continue ASA, Plavix, Lipitor (7) Laceration of head Code(s): S01.91XA - LACERATION W/O FOREIGN BODY OF UNSP PART OF HEAD, INIT Status: Acute Qualifiers: Encounter type: initial encounter Location of open wound of head: scalp Foreign body presence: without foreign body Qualified Code(s): S01.01XA - Laceration without foreign body of scalp, initial encounter Comment: Plan for primary closure today - Plan PT/OT, social media designer, DVT proph w/SCDs Stable overall -: Decrease Lasix 40mg IV daily -: Fall precautions -: D/C Heparin -: Plan for primary repair of head laceration * AM lab: BMP * Home in am
--- NOTE | 2017-12-23 18:49 | OP ---
DATE OF PROCEDURE: 12/23/2017 INDICATION: Right forehead laceration, status post fall. PRIMARY ATTENDING: Milan Escobar D.O. CONSENT: Informed. ANESTHESIA: 1% lidocaine without epinephrine. PROCEDURE IN DETAIL: The patient was prepped and draped in sterile fashion. Wound was irrigated and prepped with Betadine swab sticks, subcutaneous tissues anesthetized using 1% lidocaine without epinephrine. Primary closure with interrupted 5-0 Prolene suture with good hemostasis obtained. No evidence of foreign body in the wound. Wound closure approximately 2 cm in a stellate fashion. The patient tolerated the procedure well. COMPLICATIONS: None. ESTIMATED BLOOD LOSS: Minimal. CONDITION: Stable. MTDD
[2017-12-23] MEDS: Atorvastatin Calcium 40 MG TAB PO SCH (20:02)
[2017-12-23] MEDS: Tamsulosin HCl 0.4 MG CAP PO SCH (20:02)
[2017-12-24] MEDS ORDERED: Furosemide 40 MG/4 ML VIAL SLOW IVP SCH (09:00)
[2017-12-24] MEDS: Aspirin 81 mg Enteric Coated Tablet PO SCH (10:49)
[2017-12-24] MEDS: Finasteride 5 MG TAB PO SCH (10:49)
[2017-12-24] MEDS: Clopidogrel Bisulfate 75 MG TAB PO SCH (10:49)
--- NOTE | 2017-12-24 10:57 | PQF ---
CLINICAL DOCUMENTATION IMPROVEMENT CLARIFICATION FORM: ICD-10 Updated PLEASE DO AN ADDENDUM TO THE PROGRESS NOTE WITH ANY DOCUMENTATION UPDATES OR ADDITIONS AND CARRY THROUGH TO DC SUMMARY. THANK YOU. DATE: 12/24 ATTN: DR. VLADISLAV CLEMENTE Please exercise your independent, professional judgment in responding to the clarification form. Clinical indicators are provided on the bottom of this form for your review Please check appropriate box(s): Acute Renal Failure/ Acute Kidney Injury (MARCIAL) [ x ] Acute on Chronic Renal Failure please specify Stage of CKD ___3 (see below) [ ] CKD without ARF/MARCIAL please specify Stage of CKD [ ] Other diagnosis [ ] Unable to determine National Kidney Foundation Guidelines for CKD Staging Stage I Kidney damage with normal or increased GFR GFR > 90 Stage II Kidney damage with mildly decreased GFR GFR 60-89 Stage III Kidney damage with moderately decreased GFR GFR 30-59 Stage IV Kidney damage with severely decreased GFR GFR 16-29 Stage V Kidney failure GFR<15 ESRD End Stage Renal Disease On dialysis For continuity of documentation, please document condition throughout progress notes and discharge summary. Thank You. CLINICAL INDICATORS - SIGNS / SYMPTOMS / LABS ER PHYSICIAN DOCUMENTATION 12/22: ACUTE KIDNEY INJURY ATTENDING H&P 12/22: HE ALSO HAS WHAT APPEARS TO BE ACUTE RENAL FAILURE ATTENDING PN 12/22 & : 5) MARCIAL CARDIOLOGY CONSULT 12/22: 3) RENAL INSUFFICIENCY, STAGE 3 BUN: 38 CR: 1.78 GFR: 37 (ADMIT, 12/21) 37 1.45 47 (12/23) RISK FACTORS: HYPOTENSION ON ADMIT (91/58 - 106/63) ACUTE ON CHRONIC SYSTOLIC HF HTN DIURETIC USE TREATMENTS: DOPAMINE INFUSION FOR HYPOTENSION SERIAL BMP THANK YOU! Crystal (This form is maintained as a part of the permanent medical record) 2014 [employer]. All Rights Reserved Crystal Courtney RN, BSN [email or web address] Office: [phone] [facility]
[2017-12-24 16:07] LABS: Hemoglobin 11.6 g/dL (14.0-18.0); Platelet Count 135 thou/uL (130-400)
[2017-12-24] MEDS: Furosemide 40 MG/4 ML VIAL SLOW IVP SCH (18:24)
--- NOTE | 2017-12-24 18:46 | PDOC.PN ---
- Subjective Encounter Start Date: 12/24/17 Encounter Start Time: 18:45 feeling good today. wants to go home. - Objective Resuscitation Status: Resuscitation Status FULL:Full Resuscitation Vital Signs & Weight: Vital Signs (12 hours) Pulse Pulse BP BP Pulse Ox Pulse Ox 12/24/17 11:59 73 64 115/87 119/61 96 97 Weight Admit Weight 143 lb 4.807 oz Weight 125 lb 8 oz Most Recent Monitor Data Heart Rate from ECG 60 NIBP 108/58 NIBP BP-Mean 78 Respiration from ECG 18 SpO2 100 I&O: 12/23/17 12/24/17 12/25/17 06:59 06:59 06:59 Intake Total 960 360 Output Total 695 1520 Balance 265 -1160 Result Diagrams: 12/24/17 15:54 12/23/17 04:08 Additional Labs: Accuchecks 12/23/17 07:31 POC Glucose 104 Phys Exam - Physical Examination Constitutional: NAD HEENT: moist MMs, sclera anicteric Neck: no nodes, no JVD, supple Respiratory: no wheezing, no rales, no rhonchi Cardiovascular: RRR, no significant murmur, no rub Gastrointestinal: soft, non-tender, no distention Dx/Plan (1) MARCIAL (acute kidney injury) Code(s): N17.9 - ACUTE KIDNEY FAILURE, UNSPECIFIED Status: Acute Comment: Likely cardiorenal syndrome, avoid nephrotoxic meds and contrast exposure, serial creatinine, mild improvement (2) Acute on chronic systolic CHF (congestive heart failure) Code(s): I50.23 - ACUTE ON CHRONIC SYSTOLIC (CONGESTIVE) HEART FAILURE Status : Acute Comment: Improved, EF 25-30%, decrease Lasix 40mg IV daily, echo for today. . f/u Dr Cheng recs. (3) Laceration of head Code(s): S01.91XA - LACERATION W/O FOREIGN BODY OF UNSP PART OF HEAD, INIT Status: Acute Qualifiers: Encounter type: initial encounter Location of open wound of head: scalp Foreign body presence: without foreign body Qualified Code(s): S01.01XA - Laceration without foreign body of scalp, initial encounter Comment: scalp lac sutured on 12/23/17 (4) CAD (coronary artery disease) Code(s): I25.10 - ATHSCL HEART DISEASE OF [place] CORONARY ARTERY W/O ANG PCTRS Status: Chronic Comment: Continue ASA, Plavix, Lipitor (5) Ischemic cardiomyopathy Code(s): I25.5 - ISCHEMIC CARDIOMYOPATHY Status: Chronic Comment: Continue ASA, Plavix, Lipitor, ? candidate for Entresto - Plan cont current plan of care * . IV lasix diuresis, f.u Dr Cheng. f.u renal function with labs in am -hopefully home tomorrow if ok with Dr Cheng. -will inquire about BB and ARB?
[2017-12-24] MEDS: Tamsulosin HCl 0.4 MG CAP PO SCH (21:24)
[2017-12-24] MEDS: Atorvastatin Calcium 40 MG TAB PO SCH (21:24)
[2017-12-25] MEDS: Furosemide 40 MG/4 ML VIAL SLOW IVP SCH ×2 (05:21→13:50)
[2017-12-25 06:01] LABS: Anion Gap 14 mmol/L (10-20); BUN (Urea Nitrogen) 28 mg/dL (8.4-25.7); Calc. Creatinine Clearance 38 mL/min (70-130); Carbon Dioxide 24 mmol/L (23-31); Chloride 105 mmol/L (98-107); Estimated GFR-MDRD 53; Glucose 84 mg/dL (83-110); Potassium 3.6 mmol/L (3.5-5.1); Sodium 139 mmol/L (136-145)
[2017-12-25 06:10] LABS: #Eosinphils 0.2 thou/uL (0.0-0.7); #Lymphocytes 1.2 thou/uL (1.20-3.40); #Monocytes 0.3 thou/uL (0.11-0.59); #Neutrophils 5.1 thou/uL (1.40-6.50); %Basophils 0.2 % (0.0-1.0); %Eosinophils 2.3 % (0.0-10.0); %Monocytes 4.6 % (0.0-10.0); %Neutrophils 74.8 % (42.0-75.0); Hemoglobin 10.6 g/dL (14.0-18.0); Mean Corpuscular HGB CONC 32.6 g/dL (32.0-36.0); Mean Corpuscular Hemoglobin 27.8 pg (27.0-31.0); Mean Corpuscular Volume 85.2 fl (80.0-94.0); Mean Platelet Volume 8.5 fL (7.4-10.4); PLT Morphology Comment Appears Decreased; Platelet Count 119 thou/uL (130-400); RBC Distribution Width 16.5 % (11.5-14.5); White Blood Cell (WBC) Count 6.8 thou/uL (4.8-10.8)
[2017-12-25] MEDS: Finasteride 5 MG TAB PO SCH (10:31)
[2017-12-25] MEDS: Aspirin 81 mg Enteric Coated Tablet PO SCH (10:31)
[2017-12-25] MEDS: Clopidogrel Bisulfate 75 MG TAB PO SCH (10:32)
[2017-12-25] MEDS ORDERED: Hydrocortisone Acetate 25 MG Suppository PR PRN (10:54)
[2017-12-25] MEDS: Nicotine 14 MG PATCH TD SCH (13:50)
[2017-12-25] MEDS: Lorazepam 0.5 MG TAB PO PRN (16:01)
[2017-12-25] MEDS: Acetaminophen 325 MG TAB PO PRN (16:01)
--- NOTE | 2017-12-25 17:50 | PDOC.PN ---
- Subjective Encounter Start Date: 12/25/17 Encounter Start Time: 17:50 patient really wants to go home. he is very anxious. he states he is breathing well. however he is very anxious, no diarrhea nausea or vomiting, - Objective Resuscitation Status: Resuscitation Status FULL:Full Resuscitation MAR Reviewed: Yes Vital Signs & Weight: Vital Signs (12 hours) Pulse Pulse BP BP Pulse Ox Pulse Ox 12/25/17 13:28 84 73 101/53 L 108/53 L 100 99 Weight Admit Weight 143 lb 4.807 oz Weight 125 lb 8 oz Most Recent Monitor Data Heart Rate from ECG 60 NIBP 108/58 NIBP BP-Mean 78 Respiration from ECG 18 SpO2 100 I&O: 12/24/17 12/25/17 12/26/17 06:59 06:59 06:59 Intake Total 360 1200 Output Total 1520 525 Balance -1160 675 Result Diagrams: 12/25/17 05:08 12/25/17 05:08 Phys Exam - Physical Examination HEENT: moist MMs, sclera anicteric Neck: no nodes, no JVD, supple Respiratory: no wheezing, no rales, no rhonchi Cardiovascular: RRR, no significant murmur, no rub Gastrointestinal: soft, non-tender, no distention 3+ pitting edema in the bilateral LE Dx/Plan (1) MARCIAL (acute kidney injury) Code(s): N17.9 - ACUTE KIDNEY FAILURE, UNSPECIFIED Status: Acute Comment: Likely cardiorenal syndrome, avoid nephrotoxic meds and contrast exposure, serial creatinine, Cr stable and actually improved from yesterday (2) Acute on chronic systolic CHF (congestive heart failure) Code(s): I50.23 - ACUTE ON CHRONIC SYSTOLIC (CONGESTIVE) HEART FAILURE Status : Acute Comment: Improved, EF 25-30%, decrease Lasix 40mg IV daily, echo demonstrated EF of 20-2% . f/u Dr Cheng recs. Per Dr Cheng, patient will likely need several more days of IV diuresis. (3) Laceration of head Code(s): S01.91XA - LACERATION W/O FOREIGN BODY OF UNSP PART OF HEAD, INIT Status: Acute Qualifiers: Encounter type: initial encounter Location of open wound of head: scalp Foreign body presence: without foreign body Qualified Code(s): S01.01XA - Laceration without foreign body of scalp, initial encounter Comment: scalp lac sutured on 12/23/17 (4) CAD (coronary artery disease) Code(s): I25.10 - ATHSCL HEART DISEASE OF [place] CORONARY ARTERY W/O ANG PCTRS Status: Chronic Comment: Continue ASA, Plavix, Lipitor. restarted coreg (5) Ischemic cardiomyopathy Code(s): I25.5 - ISCHEMIC CARDIOMYOPATHY Status: Chronic Comment: Continue ASA, Plavix, Lipitor, ? candidate for Entresto - Plan cont current plan of care * . IV lasix daily, per Dr Cheng, will need several more days of IV diuresis given patients hx of noncompliance. folding back in BB. will continue to IV diurese. patient still with 3+ piting edema in the bilateral LE. d/c when ok with Dr Cheng.
[2017-12-25] MEDS: Carvedilol 3.125 MG TAB PO SCH (18:21)
[2017-12-25] MEDS: Atorvastatin Calcium 40 MG TAB PO SCH (21:12)
[2017-12-25] MEDS: Tamsulosin HCl 0.4 MG CAP PO SCH (21:12)
[2017-12-26] MEDS: Lorazepam 0.5 MG TAB PO PRN (00:29)
[2017-12-26 05:38] LABS: Anion Gap 14 mmol/L (10-20); BUN (Urea Nitrogen) 30 mg/dL (8.4-25.7); Calc. Creatinine Clearance 43 mL/min (70-130); Carbon Dioxide 21 mmol/L (23-31); Chloride 106 mmol/L (98-107); Estimated GFR-MDRD 63; Potassium 3.6 mmol/L (3.5-5.1); Sodium 137 mmol/L (136-145)
[2017-12-26 05:39] LABS: Calcium 8.9 mg/dL (7.8-10.44); Glucose 96 mg/dL (83-110)
[2017-12-26] MEDS: Furosemide 40 MG/4 ML VIAL SLOW IVP SCH (06:07)
[2017-12-26 06:48] LABS: Anisocytosis SLIGHT = 6-15 cells (100X) (0-5/hpf); Eosinophils 4 % (0-10); Hemoglobin 10.6 g/dL (14.0-18.0); Hypochromia SLIGHT = 6-15 cells (100X) (0-5/hpf); Lymphocytes 21 % (21-51); MDiff Complete? YES; Mean Corpuscular HGB CONC 30.7 g/dL (32.0-36.0); Mean Corpuscular Hemoglobin 26.3 pg (27.0-31.0); Mean Corpuscular Volume 85.8 fl (80.0-94.0); Mean Platelet Volume 8.4 fL (7.4-10.4); Monocytes 5 % (0-10); Neutrophil 70 % (42-75); PLT Morphology Comment Appears Adequate; Platelet Count 131 thou/uL (130-400); RBC Distribution Width 16.6 % (11.5-14.5); Red Blood Cell (RBC) Count 4.04 mill/uL (4.70-6.10); Schistocytes SLIGHT = 2-5 cells (100X) (0-1/hpf); White Blood Cell (WBC) Count 6.7 thou/uL (4.8-10.8)
--- NOTE | 2017-12-26 08:11 | PDOC.PN ---
- Subjective Encounter Start Date: 12/26/17 Encounter Start Time: 08:09 Subjective: no sob, chest pain - Objective Resuscitation Status: Resuscitation Status FULL:Full Resuscitation MAR Reviewed: Yes Vital Signs & Weight: Vital Signs (12 hours) Temp Pulse Resp BP Pulse Ox 12/26/17 03:51 97.9 F 66 15 119/56 L 93 L Weight Admit Weight 143 lb 4.807 oz Weight 139 lb 11.2 oz Most Recent Monitor Data Heart Rate from ECG 60 NIBP 108/58 NIBP BP-Mean 78 Respiration from ECG 18 SpO2 100 I&O: 12/25/17 12/26/17 12/27/17 06:59 06:59 06:59 Intake Total 1200 2134 Output Total 525 1000 Balance 675 1134 Result Diagrams: 12/26/17 04:53 12/26/17 04:53 Phys Exam - Physical Examination Neck: no JVD Respiratory: clear to auscultation bilateral Cardiovascular: RRR 2/6 sys murmur Gastrointestinal: soft, non-tender, positive bowel sounds Musculoskeletal: edema present Dx/Plan (1) Acute on chronic systolic CHF (congestive heart failure) Code(s): I50.23 - ACUTE ON CHRONIC SYSTOLIC (CONGESTIVE) HEART FAILURE Status : Acute Comment: Improved, EF 25-30%, decrease Lasix 40mg IV daily, echo demonstrated EF of 20-2% . f/u Dr Cheng recza. Per Dr Cheng, patient will likely need several more days of IV diuresis. (2) Laceration of head Code(s): S01.91XA - LACERATION W/O FOREIGN BODY OF UNSP PART OF HEAD, INIT Status: Acute Qualifiers: Encounter type: initial encounter Location of open wound of head: scalp Foreign body presence: without foreign body Qualified Code(s): S01.01XA - Laceration without foreign body of scalp, initial encounter Comment: scalp lac sutured on 12/23/17 (3) BPH (benign prostatic hyperplasia) Code(s): N40.0 - BENIGN PROSTATIC HYPERPLASIA WITHOUT LOWER URINRY TRACT SYMP Status: Chronic Qualifiers: Lower urinary tract symptom detail: unspecified (4) CAD (coronary artery disease) Code(s): I25.10 - ATHSCL HEART DISEASE OF [place] CORONARY ARTERY W/O ANG PCTRS Status: Chronic Qualifiers: Coronary Disease-Associated Artery/Lesion type: [place] artery [place] vs. transplanted heart: [place] heart Associated angina: without angina Qualified Code(s): I25.10 - Atherosclerotic heart disease of [place] coronary artery without angina pectoris Comment: Continue ASA, Plavix, Lipitor. restarted coreg (5) Elevated troponin Code(s): R74.8 - ABNORMAL LEVELS OF OTHER SERUM ENZYMES Status: Chronic Comment: Chronic demand ischemia given cardiomyopathy, medical mgmt (6) Ischemic cardiomyopathy Code(s): I25.5 - ISCHEMIC CARDIOMYOPATHY Status: Chronic Comment: Continue ASA, Plavix, Lipitor, ? candidate for Entresto - Plan cont iv lasix -: cont po coreg, nitrates -: discuss with cardiology * .
[2017-12-26] MEDS ORDERED: Metolazone 5 MG TAB PO SCH (08:30)
[2017-12-26] MEDS ORDERED: Furosemide 40 MG/4 ML VIAL SLOW IVP SCH (09:00)
[2017-12-26] MEDS: Carvedilol 3.125 MG TAB PO SCH ×2 (10:05→16:13)
[2017-12-26] MEDS: Aspirin 81 mg Enteric Coated Tablet PO SCH (10:05)
[2017-12-26] MEDS: Finasteride 5 MG TAB PO SCH (10:05)
[2017-12-26] MEDS: Nicotine 14 MG PATCH TD SCH (11:45)
[2017-12-26] MEDS: Furosemide 100 MG/10 ML VIAL SLOW IVP SCH (14:31)
[2017-12-26 15:25] LABS: Hemoglobin 11.6 g/dL (14.0-18.0); Platelet Count 133 thou/uL (130-400)
[2017-12-26] MEDS: Atorvastatin Calcium 40 MG TAB PO SCH (20:16)
[2017-12-26] MEDS: Tamsulosin HCl 0.4 MG CAP PO SCH (20:16)
[2017-12-27 05:37] LABS: Anion Gap 13 mmol/L (10-20); BUN (Urea Nitrogen) 25 mg/dL (8.4-25.7); Calc. Creatinine Clearance 52 mL/min (70-130); Calcium 8.8 mg/dL (7.8-10.44); Carbon Dioxide 24 mmol/L (23-31); Chloride 101 mmol/L (98-107); Estimated GFR-MDRD 69; Glucose 92 mg/dL (83-110); Potassium 3.1 mmol/L (3.5-5.1); Sodium 135 mmol/L (136-145)
[2017-12-27] MEDS: Furosemide 100 MG/10 ML VIAL SLOW IVP SCH ×2 (06:42→14:06)
--- NOTE | 2017-12-27 08:22 | PDOC.PN ---
- Subjective Encounter Start Date: 12/27/17 Encounter Start Time: 08:19 Subjective: no sob or pain - Objective Resuscitation Status: Resuscitation Status FULL:Full Resuscitation MAR Reviewed: Yes Vital Signs & Weight: Vital Signs (12 hours) Temp Pulse Resp BP Pulse Ox 12/27/17 04:00 97.8 F 72 18 107/58 L 94 L 12/27/17 00:00 74 18 Weight Admit Weight 143 lb 4.807 oz Weight 138 lb 3.2 oz Most Recent Monitor Data Heart Rate from ECG 60 NIBP 108/58 NIBP BP-Mean 78 Respiration from ECG 18 SpO2 100 I&O: 12/26/17 12/27/17 12/28/17 06:59 06:59 06:59 Intake Total 2134 1200 Output Total 1000 2475 Balance 1134 -1275 Result Diagrams: 12/26/17 15:18 12/27/17 04:50 Phys Exam - Physical Examination Neck: no JVD post rrales Cardiovascular: RRR, no significant murmur Gastrointestinal: soft, non-tender, positive bowel sounds Musculoskeletal: no edema Dx/Plan (1) Acute on chronic systolic CHF (congestive heart failure) Code(s): I50.23 - ACUTE ON CHRONIC SYSTOLIC (CONGESTIVE) HEART FAILURE Status : Acute Comment: Improved, EF 25-30%, decrease Lasix 40mg IV daily, echo demonstrated EF of 20-2% . f/u Dr Cheng recs. Per Dr Cheng, patient will likely need several more days of IV diuresis. (2) Laceration of head Code(s): S01.91XA - LACERATION W/O FOREIGN BODY OF UNSP PART OF HEAD, INIT Status: Acute Qualifiers: Encounter type: initial encounter Location of open wound of head: scalp Foreign body presence: without foreign body Qualified Code(s): S01.01XA - Laceration without foreign body of scalp, initial encounter Comment: scalp lac sutured on 12/23/17 (3) BPH (benign prostatic hyperplasia) Code(s): N40.0 - BENIGN PROSTATIC HYPERPLASIA WITHOUT LOWER URINRY TRACT SYMP Status: Chronic Qualifiers: Lower urinary tract symptom detail: unspecified (4) CAD (coronary artery disease) Code(s): I25.10 - ATHSCL HEART DISEASE OF [place] CORONARY ARTERY W/O ANG PCTRS Status: Chronic Qualifiers: Coronary Disease-Associated Artery/Lesion type: [place] artery [place] vs. transplanted heart: [place] heart Associated angina: without angina Qualified Code(s): I25.10 - Atherosclerotic heart disease of [place] coronary artery without angina pectoris Comment: Continue ASA, Plavix, Lipitor. restarted coreg (5) Elevated troponin Code(s): R74.8 - ABNORMAL LEVELS OF OTHER SERUM ENZYMES Status: Chronic Comment: Chronic demand ischemia given cardiomyopathy, medical mgmt (6) Ischemic cardiomyopathy Code(s): I25.5 - ISCHEMIC CARDIOMYOPATHY Status: Chronic Comment: Continue ASA, Plavix, Lipitor, ? candidate for Entresto - Plan lasix iv increaed by cardiology -: cont ASA, coreg,imdur -: start lisinopril * .
[2017-12-27] MEDS: Aspirin 81 mg Enteric Coated Tablet PO SCH (09:15)
[2017-12-27] MEDS: Carvedilol 3.125 MG TAB PO SCH ×2 (09:15→17:12)
[2017-12-27] MEDS: Finasteride 5 MG TAB PO SCH (09:15)
[2017-12-27] MEDS: Lisinopril 2.5 MG TAB PO SCH (09:16)
[2017-12-27] MEDS: Nicotine 14 MG PATCH TD SCH (12:18)
--- NOTE | 2017-12-27 20:27 | PDOC.CTH ---
Cardiology Progress Note - Subjective He is doing better today. breathing closer to baseline. - Objective Vital Signs Temp Pulse Resp BP BP Pulse Ox 12/27/17 16:00 97.9 F 78 18 108/54 L 93 L 12/27/17 12:00 97.4 F L 68 17 112/65 93 L 12/27/17 11:48 97.2 F L 74 18 12/27/17 09:16 74 114/64 Admit Weight 143 lb 4.807 oz Weight 138 lb 3.2 oz 12/26/17 12/27/17 12/28/17 06:59 06:59 06:59 Intake Total 2134 1200 600 Output Total 1000 6505 6845 Balance 7916 -0514 -8684 - Physical Examination General/Neuro: alert & oriented x3, NAD Neck: no JVD present Lungs: unlabored respirations Heart: RRR Abdomen: NT/ND Extremities: + edema B (1+) - Telemetry Telemetry Rhythm: NSR - Labs Result Diagrams: 12/26/17 15:18 12/27/17 04:50 Troponin/CKMB CK-MB (CK-2) 7.4 ng/mL (0-6.6) H* 12/21/17 23:30 Troponin I 0.070 ng/mL (< 0.028) H 12/23/17 04:08 - Assessment/Plan 1. Acute on chronic systolic heart failure 2. Dilated CM EF at 20-25% 3. Presence of an AICD. 4. CAD 5. Hx of CABG PLAN: - Continue IV lasix at current dose. - Continue other meds. - Up titrate BB and ACEI as BP allows. - Replace K
[2017-12-27] MEDS: Atorvastatin Calcium 40 MG TAB PO SCH (20:39)
[2017-12-27] MEDS: Tamsulosin HCl 0.4 MG CAP PO SCH (20:39)
[2017-12-28] MEDS: Furosemide 100 MG/10 ML VIAL SLOW IVP SCH ×2 (04:59→14:10)
[2017-12-28 05:58] LABS: Anion Gap 12 mmol/L (10-20); BUN (Urea Nitrogen) 24 mg/dL (8.4-25.7); Calc. Creatinine Clearance 47 mL/min (70-130); Calcium 8.9 mg/dL (7.8-10.44); Carbon Dioxide 31 mmol/L (23-31); Chloride 98 mmol/L (98-107); Estimated GFR-MDRD 61; Glucose 102 mg/dL (83-110); Sodium 138 mmol/L (136-145)
[2017-12-28 06:04] LABS: Potassium 2.9 mmol/L (3.5-5.1)
[2017-12-28] MEDS: Potassium Chloride 20 MEQ TAB PO SCH ×2 (06:27→11:33)
--- NOTE | 2017-12-28 07:20 | PDOC.PN ---
- Subjective Encounter Start Date: 12/28/17 Encounter Start Time: 07:18 Subjective: alert, no pain or sob - Objective Resuscitation Status: Resuscitation Status FULL:Full Resuscitation MAR Reviewed: Yes Vital Signs & Weight: Vital Signs (12 hours) Temp Pulse Resp BP BP Pulse Ox 12/28/17 04:14 94 L 12/28/17 04:00 98.4 F 66 20 100/70 100 12/27/17 20:00 97.3 F L 66 18 96/54 L 94 L Weight Admit Weight 143 lb 4.807 oz Weight 133 lb Most Recent Monitor Data Heart Rate from ECG 60 NIBP 108/58 NIBP BP-Mean 78 Respiration from ECG 18 SpO2 100 I&O: 12/27/17 12/28/17 12/29/17 06:59 06:59 06:59 Intake Total 1200 785 Output Total 2475 3500 Balance -3705 -0870 Result Diagrams: 12/26/17 15:18 12/28/17 05:17 Phys Exam - Physical Examination Neck: no JVD Respiratory: clear to auscultation bilateral Cardiovascular: RRR, no significant murmur Gastrointestinal: soft, positive bowel sounds Musculoskeletal: no edema Dx/Plan (1) Acute on chronic systolic CHF (congestive heart failure) Code(s): I50.23 - ACUTE ON CHRONIC SYSTOLIC (CONGESTIVE) HEART FAILURE Status : Acute Comment: Improved, EF 25-30%, decrease Lasix 40mg IV daily, echo demonstrated EF of 20-2% . f/u Dr Cheng recs. Per Dr Cheng, patient will likely need several more days of IV diuresis. (2) Laceration of head Code(s): S01.91XA - LACERATION W/O FOREIGN BODY OF UNSP PART OF HEAD, INIT Status: Acute Qualifiers: Encounter type: initial encounter Location of open wound of head: scalp Foreign body presence: without foreign body Qualified Code(s): S01.01XA - Laceration without foreign body of scalp, initial encounter Comment: scalp lac sutured on 12/23/17 (3) BPH (benign prostatic hyperplasia) Code(s): N40.0 - BENIGN PROSTATIC HYPERPLASIA WITHOUT LOWER URINRY TRACT SYMP Status: Chronic Qualifiers: Lower urinary tract symptom detail: unspecified (4) CAD (coronary artery disease) Code(s): I25.10 - ATHSCL HEART DISEASE OF [place] CORONARY ARTERY W/O ANG PCTRS Status: Chronic Qualifiers: Coronary Disease-Associated Artery/Lesion type: [place] artery [place] vs. transplanted heart: [place] heart Associated angina: without angina Qualified Code(s): I25.10 - Atherosclerotic heart disease of [place] coronary artery without angina pectoris Comment: Continue ASA, Plavix, Lipitor. restarted coreg (5) Elevated troponin Code(s): R74.8 - ABNORMAL LEVELS OF OTHER SERUM ENZYMES Status: Chronic Comment: Chronic demand ischemia given cardiomyopathy, medical mgmt (6) Ischemic cardiomyopathy Code(s): I25.5 - ISCHEMIC CARDIOMYOPATHY Status: Chronic Comment: Continue ASA, Plavix, Lipitor, ? candidate for Entresto - Plan BP about 100 sys on lasix, low dose coreg/ MARTIN -: transition to po lasix? discuss with cardiology * .
[2017-12-28] MEDS: Aspirin 81 mg Enteric Coated Tablet PO SCH (08:07)
[2017-12-28] MEDS: Lisinopril 2.5 MG TAB PO SCH (08:07)
[2017-12-28] MEDS: Finasteride 5 MG TAB PO SCH (08:07)
[2017-12-28] MEDS: Carvedilol 3.125 MG TAB PO SCH ×3 (08:08→17:23)
[2017-12-28] MEDS: Acetaminophen 325 MG TAB PO PRN (08:33)
[2017-12-28] MEDS ORDERED: Ondansetron HCl/PF 4 MG/2 ML Vial IVP PRN (11:31)
[2017-12-28] MEDS: Nicotine 14 MG PATCH TD SCH (11:58)
[2017-12-28] MEDS ORDERED: Ondansetron ODT 8 MG TAB PO SCH (12:15)
--- NOTE | 2017-12-28 15:12 | PDOC.CTH ---
Cardiology Progress Note - Subjective Still a little confused. No new issues. - Objective Vital Signs Temp Pulse Resp BP BP Pulse Ox 12/28/17 11:33 97.5 F L 66 17 108/58 L 100 12/28/17 08:07 65 95/48 L 12/28/17 08:00 98.0 F 65 17 95/48 L 94 L 12/28/17 04:14 94 L 12/28/17 04:00 98.4 F 66 20 100/70 100 Admit Weight 143 lb 4.807 oz Weight 133 lb 12/27/17 12/28/17 12/29/17 06:59 06:59 06:59 Intake Total 1200 785 Output Total 9465 5250 Balance -0631 -7909 - Physical Examination General/Neuro: NAD Neck: no JVD present Lungs: CTA, unlabored respirations Heart: RRR Abdomen: NT/ND Extremities: other: (no edema.) - Telemetry Telemetry Rhythm: NSR - Labs Result Diagrams: 12/26/17 15:18 12/28/17 05:17 Troponin/CKMB CK-MB (CK-2) 7.4 ng/mL (0-6.6) H* 12/21/17 23:30 Troponin I 0.070 ng/mL (< 0.028) H 12/23/17 04:08 - Assessment/Plan 1. Acute on chronic systolic heart failure 2. Dilated CM EF at 20-25% 3. Presence of an AICD. 4. CAD 5. Hx of CABG PLAN: - Switch to PO lasix. - Continue other meds. - Up titrate BB and ACEI as BP allows. - Replace K
[2017-12-28 15:32] LABS: Hemoglobin 10.9 g/dL (14.0-18.0); Platelet Count 142 thou/uL (130-400)
[2017-12-28] MEDS: Atorvastatin Calcium 40 MG TAB PO SCH (20:15)
[2017-12-28] MEDS: Tamsulosin HCl 0.4 MG CAP PO SCH (20:16)
[2017-12-29] MEDS: Furosemide 100 MG/10 ML VIAL SLOW IVP SCH (05:21)
[2017-12-29 06:11] LABS: Anion Gap 12 mmol/L (10-20); BUN (Urea Nitrogen) 24 mg/dL (8.4-25.7); Calc. Creatinine Clearance 44 mL/min (70-130); Calcium 8.8 mg/dL (7.8-10.44); Carbon Dioxide 27 mmol/L (23-31); Chloride 100 mmol/L (98-107); Estimated GFR-MDRD 59; Glucose 119 mg/dL (83-110); Potassium 3.8 mmol/L (3.5-5.1); Sodium 135 mmol/L (136-145)
[2017-12-29] MEDS: Finasteride 5 MG TAB PO SCH (09:36)
[2017-12-29] MEDS: Aspirin 81 mg Enteric Coated Tablet PO SCH (09:37)
[2017-12-29] MEDS: Carvedilol 3.125 MG TAB PO SCH (09:37)
--- NOTE | 2017-12-29 10:05 | PDOC.PN ---
- Subjective Encounter Start Date: 12/29/17 Encounter Start Time: 08:00 -: old records requested/rev Patient seen and examined for CHF exacerbation. No new complaints. No overnight events pt has bedside sitter - Objective Resuscitation Status: Resuscitation Status FULL:Full Resuscitation MAR Reviewed: Yes Vital Signs & Weight: Vital Signs (12 hours) Temp Pulse Resp BP Pulse Ox 12/29/17 09:38 70 105/55 L 12/29/17 07:23 97.8 F 68 18 90/55 L 98 12/29/17 04:00 98.0 F 68 18 96/53 L 93 L 12/29/17 01:05 97.6 F 60 18 92/54 L 95 Weight Admit Weight 143 lb 4.807 oz Weight 134 lb Most Recent Monitor Data Heart Rate from ECG 60 NIBP 108/58 NIBP BP-Mean 78 Respiration from ECG 18 SpO2 100 I&O: 12/28/17 12/29/17 12/30/17 06:59 06:59 06:59 Intake Total 785 800 Output Total 3500 1525 Balance -6805 -235 Result Diagrams: 12/28/17 15:26 12/29/17 05:24 Additional Labs: Accuchecks 12/28/17 17:24 POC Glucose 117 H EKG Reviewed by me: Yes (nsr) Phys Exam - Physical Examination Constitutional: NAD HEENT: PERRLA, moist MMs, sclera anicteric fasial bruise Neck: no nodes, no JVD, supple, full ROM Respiratory: no wheezing, no rales, no rhonchi Cardiovascular: RRR, no significant murmur, no rub Gastrointestinal: soft, non-tender, no distention, positive bowel sounds Musculoskeletal: pulses present, edema present Neurological: non-focal, normal sensation, moves all 4 limbs Lymphatic: no nodes Psychiatric: normal affect, A&O x 3 Skin: no rash, normal turgor Dx/Plan (1) Acute on chronic systolic CHF (congestive heart failure) Code(s): I50.23 - ACUTE ON CHRONIC SYSTOLIC (CONGESTIVE) HEART FAILURE Status : Acute Comment: (2) Hypotension Status: Acute Comment: (3) Laceration of head Code(s): S01.91XA - LACERATION W/O FOREIGN BODY OF UNSP PART OF HEAD, INIT Status: Acute Qualifiers: Encounter type: initial encounter Location of open wound of head: scalp Foreign body presence: without foreign body Qualified Code(s): S01.01XA - Laceration without foreign body of scalp, initial encounter Comment: scalp lac sutured on 12/23/17 (4) BPH (benign prostatic hyperplasia) Code(s): N40.0 - BENIGN PROSTATIC HYPERPLASIA WITHOUT LOWER URINRY TRACT SYMP Status: Chronic Qualifiers: Lower urinary tract symptom detail: unspecified (5) CAD (coronary artery disease) Code(s): I25.10 - ATHSCL HEART DISEASE OF [place] CORONARY ARTERY W/O ANG PCTRS Status: Chronic Qualifiers: Coronary Disease-Associated Artery/Lesion type: [place] artery [place] vs. transplanted heart: [place] heart Associated angina: without angina Qualified Code(s): I25.10 - Atherosclerotic heart disease of [place] coronary artery without angina pectoris Comment: Continue ASA, Plavix, Lipitor. (6) Elevated troponin Code(s): R74.8 - ABNORMAL LEVELS OF OTHER SERUM ENZYMES Status: Chronic Comment: Chronic demand ischemia given cardiomyopathy, medical mgmt (7) Hx of CABG Status: Chronic (8) Hypospadias in male Code(s): Q54.9 - HYPOSPADIAS, UNSPECIFIED Status: Chronic (9) Ischemic cardiomyopathy Code(s): I25.5 - ISCHEMIC CARDIOMYOPATHY Status: Chronic Comment: Continue ASA, Plavix, Lipitor, (10) MARCIAL (acute kidney injury) Code(s): N17.9 - ACUTE KIDNEY FAILURE, UNSPECIFIED Status: Resolved Comment : - Plan cont current plan of care * on room air * ambulatory now * asymptomatic now * now on oral meds * medication reviewed as below * symptomatic treatment * stable medically * discharge planning Review of Systems - Review of Systems Constitutional: negative: fever, chills, sweats, weakness, malaise, other Eyes: negative: Pain, Vision Change, Conjunctivae Inflammation, Eyelid Inflammation, Redness, Other ENT: negative: Ear Pain, Ear Discharge, Nose Pain, Nose Discharge, Nose Congestion, Mouth Pain, Mouth Swelling, Throat Pain, Throat Swelling, Other Respiratory: negative: Cough, Dry, Shortness of Breath, Hemoptysis, SOB with Excertion, Pleuritic Pain, Sputum, Wheezing Cardiovascular: edema. negative: chest pain, palpitations, orthopnea, paroxysmal nocturnal dyspnea, light headedness, other Gastrointestinal: negative: Nausea, Vomiting, Abdominal Pain, Diarrhea, Constipation, Melena, Hematochezia, Other Genitourinary: negative: Dysuria, Frequency, Incontinence, Hematuria, Retention , Other Musculoskeletal: negative: Neck Pain, Shoulder Pain, Arm Pain, Back Pain, Hand Pain, Leg Pain, Foot Pain, Other Skin: negative: Rash, Lesions, Godwin, Bruising, Other - Medications/Allergies Allergies/Adverse Reactions: Allergies Allergy/AdvReac Type Severity Reaction Status Date / Time No Known Allergies Allergy Verified 12/22/17 04:41 Medications: Current Medications Acetaminophen (Tylenol) 650 mg PO Q4H PRN PRN Reason: Headache/Fever or Pain Last Admin: 12/28/17 08:33 Dose: 650 mg Aspirin (Ecotrin) 81 mg PO DAILY [facility] Last Admin: 12/29/17 09:37 Dose: 81 mg Atorvastatin Calcium (Lipitor) 80 mg PO [facility] Last Admin: 12/28/17 20:15 Dose: 80 mg [facility] ([facility]g) [facility] Last Admin: 12/29/17 09:37 Dose: 3.125 mg Finasteride (Proscar) 5 mg PO DAILY [facility] Last Admin: 12/29/17 09:36 Dose: 5 mg Furosemide (Lasix) 80 mg PO 0900,1400 [facility] Hydrocortisone Acetate (Anusol-Hc) 25 mg GA BID PRN PRN Reason: Hemorrhoids Isosorbide Mononitrate (Imdur) 60 mg PO DAILY [facility] Last Admin: 12/28/17 08:07 Dose: Not Given Lisinopril (Zestril) 2.5 mg PO DAILY [facility] Last Admin: 12/28/17 08:07 Dose: Not Given Lorazepam (Ativan) 0.5 mg PO Q4H PRN PRN Reason: Anxiety Last Admin: 12/26/17 00:29 Dose: 0.5 mg Magnesium Hydroxide (Milk Of Magnesium) 30 ml PO DAILYPRN PRN PRN Reason: Constipation Nicotine (Nicoderm Patch) 14 mg TD 1200 [facility] Last Admin: 12/28/17 11:58 Dose: 14 mg Ondansetron HCl (Zofran) 4 mg IVP Q6H PRN PRN Reason: Nausea/Vomiting Last Admin: 12/28/17 12:26 Dose: 4 mg Potassium Chloride (K-Dur) 20 meq PO BID-WM JERALD Sodium Chloride (Flush - Normal Saline) 10 ml IVF Q12HR JERALD Last Admin: 12/29/17 09:38 Dose: 10 ml Sodium Chloride (Flush - Normal Saline) 10 ml IVF PRN PRN PRN Reason: Saline Flush Tamsulosin HCl (Flomax) 0.4 mg PO HS [facility] Last Admin: 12/28/17 20:16 Dose: 0.4 mg
[2017-12-29] MEDS: Lisinopril 2.5 MG TAB PO SCH (11:41)
--- NOTE | 2017-12-29 12:03 | DIS ---
DATE OF ADMISSION: 12/22/2017 DATE OF DISCHARGE: 12/29/2017 PRIMARY CARE PHYSICIAN: Dr. Lowery at [facility]. DISCHARGE DISPOSITION: Home with home health. PRIMARY DISCHARGE DIAGNOSES: Acute on chronic systolic congestive heart failure stage C, laceration of head from mechanical fall, acute kidney failure due to cardiorenal syndrome, improved. SECONDARY DISCHARGE DIAGNOSES: Chronic ischemic cardiomyopathy, hypospadias in male, history of CABG , chronically elevated troponin, coronary artery disease, benign enlargement of prostate with chronic indwelling Alonso catheter, chronic systolic heart failure, physical deconditioning. PRIMARY PROCEDURE/OPERATION: None. RADIOLOGICAL INVESTIGATION: Chest x-ray showed pulmonary vascular congestion. CT brain was negative for any acute intracranial process other than laceration of the scalp on the right side. Echocardio graphy showed EF 20%-25% with severe MR, moderate AR, severe TR. SIGNIFICANT LABORATORY DATA: WBC 6.7, hemoglobin 10.9, platelet 142. INR 1.3, creatinine 1.19, pota ssium 3.8, troponin 0.070. DISCHARGE MEDICATIONS: Aspirin 81 mg p.o. daily, Lipitor 80 mg p.o. at bedtime, Coreg 3.125 mg p.o. b.i.d., Proscar 5 mg p.o. daily, Lasix 80 mg p.o. b.i.d., Imdur 60 mg p.o. daily, lisinopril 2.5 mg p .o. daily, potassium chloride 20 mEq p.o. b.i.d., Flomax 0.4 mg p.o. at bedtime. CONTRAINDICATIONS: None. CODE STATUS: FULL CODE. INPATIENT CONSULTANTS: Dr. Cheng was following while in hospital. Dr. Pack was following while in hospital. TEST RESULTS PENDING ON DISCHARGE: None. ALLERGIES: No known drug allergy. DISCHARGE PLAN: Post hospital, patient will follow up with primary care physician at [facility] as we ll as Dr. Cheng and [facility] as instructed. HOSPITAL COURSE: A 77-year-old male with above-mentioned medical problem who was admitted by Dr. Camilla clinton. Please see H&P for further detail. This patient was admitted this time with increasing shortne ss of breath and increasing lower extremity edema. He was having acute on chronic systolic heart vega lure. He required IMCU admission. As patient stayed in IMCU that is why [facility] saw this pa tient. Cardiology was consulted. He was having low blood pressure and that is why he was required d uring hospital course adjustment in medication. He required significant diuretic therapy to make him euvolemic. Upon stabilization, this patient was transferred to telemetry floor. He had chronically elevated troponin during this admission. He did not require any procedure. He had mechanical fall at home and that is why he had laceration over scalp and bruits over his face, but at this point, jed couch is doing well. He does not want to go to rehab or nursing home home and that is why he decid ed to go home with home health. administrative services manager arranged home health for him. Above-mentioned medicati on adjustment was done by Cardiology. At this point, patient appears to be euvolemic. He is on room air, tolerating p.o. well, ambulatory. As long as Cardiology okay, then we will consider dischargin g him home later on today. All new medication prescription will be sent to his pharmacy. This patient is at high risk for recurrent admission because of his multiple comorbidities and severi ty of congestive heart failure.
[2017-12-29 12:13] VITALS: BP 98/55; TEMP 97.5
[2017-12-29] MEDS ORDERED: Furosemide 80 MG TAB PO SCH (14:00)
[2017-12-29] MEDS: Nicotine 14 MG PATCH TD SCH (14:24)
[2017-12-29 14:38] VITALS: BMI 22.3
[2017-12-29] MEDS ORDERED: Potassium Chloride 20 MEQ TAB PO SCH (17:00)
== END 2017-12-29 15:03 | disposition home or self-care (01) | DRG 291 ==
LOC: ERS 23:08 → CCU 12-22 00:38 → 2NO 12-22 12:29
PROVIDERS: ADMIT Internal Medicine; ATTEND Internal Medicine
PROC: 0HQ1XZZ Repair Face Skin, External Approach (ICD-10-PCS; principal; 2017-12-23)
DX: I13.0 Hypertensive heart and chronic kidney disease with heart failure and stage 1 through stage 4 chronic kidney disease, or unspecified chronic kidney disease (principal); I50.23 Acute on chronic systolic (congestive) heart failure; R57.0 Cardiogenic shock; N17.9 Acute kidney failure, unspecified; I47.2 Ventricular tachycardia; I42.0 Dilated cardiomyopathy; I25.5 Ischemic cardiomyopathy; I25.10 Atherosclerotic heart disease of native coronary artery without angina pectoris; N40.0 Benign prostatic hyperplasia without lower urinary tract symptoms; E78.5 Hyperlipidemia, unspecified; S01.81XA Laceration without foreign body of other part of head, initial encounter; W19.XXXA Unspecified fall, initial encounter; N18.3 Chronic kidney disease, stage 3 (moderate); F17.210 Nicotine dependence, cigarettes, uncomplicated; I45.10 Unspecified right bundle-branch block; Y92.009 Unspecified place in unspecified non-institutional (private) residence as the place of occurrence of the external cause; Z79.2 Long term (current) use of antibiotics; Z91.19 Patient's noncompliance with other medical treatment and regimen; Z79.82 Long term (current) use of aspirin; Z95.1 Presence of aortocoronary bypass graft; Z95.5 Presence of coronary angioplasty implant and graft; Z95.810 Presence of automatic (implantable) cardiac defibrillator; Z79.899 Other long term (current) drug therapy; Q54.9 Hypospadias, unspecified
CPT/HCPCS: 36415; 36416; 70450; 71045; 80048; 80053; 82553; 83880; 84484; 85007; 85014; 85018; 85025; 85027; 85049; 85610; 93005; 93306; 93798; 94640; 94760; A4216; J1265; J1644; J1940; J2405; J7611; J7620

== ENCOUNTER 2018-01-11 19:49 | Inpatient (IN) | payer MEDICARE ==
[2018-01-11 20:13] LABS: #Basophils 0.1 thou/uL (0.0-0.2); #Eosinphils 0.4 thou/uL (0.0-0.7); #Lymphocytes 1.4 thou/uL (1.20-3.40); #Monocytes 0.5 thou/uL (0.11-0.59); #Neutrophils 5.8 thou/uL (1.40-6.50); %Basophils 1.2 % (0.0-1.0); %Eosinophils 5.3 % (0.0-10.0); %Monocytes 5.8 % (0.0-10.0); %Neutrophils 70.8 % (42.0-75.0); Hemoglobin 12.6 g/dL (14.0-18.0); Mean Corpuscular HGB CONC 32.5 g/dL (32.0-36.0); Mean Corpuscular Hemoglobin 26.9 pg (27.0-31.0); Mean Corpuscular Volume 82.8 fl (80.0-94.0); Mean Platelet Volume 8.6 fL (7.4-10.4); Platelet Count 151 thou/uL (130-400); RBC Distribution Width 17.2 % (11.5-14.5); Red Blood Cell (RBC) Count 4.67 mill/uL (4.70-6.10); White Blood Cell (WBC) Count 8.2 thou/uL (4.8-10.8)
[2018-01-11 20:33] LABS: ALT (SGPT) 16 U/L (8-55); AST (SGOT) 25 U/L (5-34); Albumin 3.9 g/dL (3.4-4.8); Alkaline Phosphatase 144 U/L (40-150); Anion Gap 18 mmol/L (10-20); BUN (Urea Nitrogen) 30 mg/dL (8.4-25.7); Bilirubin, Total 1.3 mg/dL (0.2-1.2); CK (CPK) 72 U/L (30-200); Calc. Creatinine Clearance 0 mL/min (70-130); Calcium 9.2 mg/dL (7.8-10.44); Carbon Dioxide 18 mmol/L (23-31); Chloride 104 mmol/L (98-107); Estimated GFR-MDRD 44; Globulin 3.4 g/dL (2.4-3.5); Glucose 127 mg/dL (83-110); Potassium 4.9 mmol/L (3.5-5.1); Protein, Total 7.3 g/dL (5.8-8.1); Sodium 135 mmol/L (136-145)
--- NOTE | 2018-01-11 20:33 | RAD ---
PORTABLE UPRIGHT FRONTAL CHEST RADIOGRAPH: 01/11/2018 HISTORY: Congestive heart failure. Shortness of breath. COMPARISON: 12/21/2017 FINDINGS: Midline sternotomy wires and multilead transvenous AICD noted. No pneumothorax is seen. There is pu lmonary vascular congestion with mild interstitial prominence in the perihilar regions, similar when compared to the prior examination. A degree of interstitial edema cannot be excluded. IMPRESSION: Pulmonary vascular congestion and perihilar interstitial prominence may signify mild interstitial rodrigo ma in the proper clinical setting. No alveolar edema or focal consolidation. POS: [facility]
[2018-01-11 20:36] LABS: CKMB 2.2 ng/mL (0-6.6)
[2018-01-11] MEDS ORDERED: Furosemide 40 MG/4 ML VIAL ONE (21:26)
[2018-01-11] MEDS ORDERED: Ondansetron HCl/PF 4 MG/2 ML Vial IVP PRN (23:07)
[2018-01-11] MEDS ORDERED: Ondansetron ODT 4 MG TAB SL PRN (23:07)
[2018-01-11] MEDS ORDERED: Acetaminophen 325 MG TAB PO PRN (23:07)
[2018-01-12 02:59] LABS: Troponin I 0.056 ng/mL (< 0.028)
[2018-01-12 03:04] LABS: Anion Gap 17 mmol/L (10-20); BUN (Urea Nitrogen) 28 mg/dL (8.4-25.7); Calc. Creatinine Clearance 37 mL/min (70-130); Calcium 9.4 mg/dL (7.8-10.44); Carbon Dioxide 19 mmol/L (23-31); Chloride 105 mmol/L (98-107); Estimated GFR-MDRD 46; Glucose 88 mg/dL (83-110); Potassium 4.2 mmol/L (3.5-5.1); Sodium 137 mmol/L (136-145)
--- NOTE | 2018-01-12 05:07 | HP ---
CHIEF COMPLAINT: Shortness of breath. HISTORY OF PRESENT ILLNESS: This patient is a 77-year-old male with a history of stage 3 congestive heart failure with an ejection fraction of 20%-25% with a severely dilated left atrium, severe mitral regurgitation, moderate AR, severe TR and AICD in place based on echo of 12/24/2017. The patient wa s recently admitted here on 12/22/2017 for exacerbation of congestive heart failure. The patient was managed with diuresis. He was seen by Cardiology and had the echocardiogram performed. He has beta blockers and afterward reduction adjusted as possible; however, his blood pressure is borderline low limiting more aggressive interventions. The patient reported that when he left on 12/29/2017, he wa s feeling fairly well. He did well at home until today. Today, he had the fairly abrupt onset of sh ortness of breath with some pressure in his chest, which were typical of his previous episodes of hea rt failure exacerbations. He has had significant lower extremity edema, but reports that he has been compliant with his medications and his diet. He reports that he has actually been making a fairly g ood urine output with the oral diuretics. REVIEW OF SYSTEMS: Negative except for those things mentioned in history of present illness based on a 10-system review. PAST MEDICAL HISTORY, FAMILY HISTORY, AND SOCIAL HISTORY: Please see the dictated history and physic al from 12/22/[address] Kobe Celeste. PHYSICAL EXAMINATION: VITAL SIGNS: Temperature is 96.1, pulse 63, respirations 27, O2 sat 100%. He is currently on nasal cannula, but required BiPAP in the emergency department. Blood pressure was 90/51. GENERAL APPEARANCE: The patient is sitting on the side of the bed with his [facility] and his head lying on his arms. He is easily awakened, appropriate, and conversant. He is currently not distressed. HEENT: PERRL. No OP lesions. NECK: Supple and symmetric. There is some JVD present. HEART: Faint but regular with no murmurs. LUNGS: Have minimal basilar rales. ABDOMEN: Soft, nontender, nondistended. EXTREMITIES: A 2-3+ pitting edema to the level of the knee bilaterally. NEUROLOGIC: The patient is nonfocal. He moves all extremities normally. PSYCHIATRIC: The patient is alert and oriented and has normal affect. LABORATORY DATA: White count is 8.2, hemoglobin 12.6, platelets 151. Sodium 135, potassium 4.9, chl oride 104, CO2 of 18, BUN 30, creatinine 1.54, glucose 127. Troponin 0.050. BNP 8853. Chest x-ray shows some evidence of pulmonary edema. IMPRESSION AND PLAN: 1. Congestive heart failure exacerbation. The patient has substantially reduced ejection fraction a t the onset of shortness of breath and some chest pressure today. His BNP is significantly elevated and is higher than it was on his previous admission on 12/22/2017. The patient has received some IV Lasix in the emergency department. We will continue to use IV Lasix. We will consult Cardiology. 2. Renal. The patient has what appears to be some mild chronic renal disease; however, his creatini ne is higher today than it has typically been at baseline. It appears as though his baseline was pre viously around 0.9, but has been elevated since november over 1. This appears to be more acute than any t ype of underlying chronic renal insufficiency. It may be simply poor pump function and poor forward flow. We will continue to monitor with treatment of his congestive heart failure. 3. Hypotension. The patient has borderline hypotension making it difficult to manage his congestive heart failure more aggressively. 4. History of benign prostatic hypertrophy. The patient has a chronic indwelling Alonso catheter. W e will check a UA. 5. Chronically elevated troponin likely related to the patient's chronic congestive heart failure.
[2018-01-12 05:50] LABS: Troponin I 0.054 ng/mL (< 0.028)
[2018-01-12] MEDS: Furosemide 40 MG/4 ML VIAL SLOW IVP SCH ×2 (06:12→14:19)
[2018-01-12] MEDS: Finasteride 5 MG TAB PO SCH (08:33)
[2018-01-12] MEDS: Carvedilol 3.125 MG TAB PO SCH ×2 (08:33→17:33)
[2018-01-12] MEDS: Potassium Chloride 20 MEQ TAB PO SCH ×2 (08:33→22:01)
[2018-01-12] MEDS: Heparin 5,000 UNITS/ML VIAL SC SCH ×2 (08:33→22:00)
[2018-01-12] MEDS: Aspirin 81 mg Enteric Coated Tablet PO SCH (08:33)
[2018-01-12] MEDS ORDERED: Aspirin 325 MG TAB PO SCH (09:00)
--- NOTE | 2018-01-12 09:48 | PDOC.PN ---
- Subjective Encounter Start Date: 01/12/18 Encounter Start Time: 09:46 Mr. Huff was seen today in follow-up of CHF exacerbation. He says he feels about the same. He denies feeling short of breath right now. He is off BiPAP. He denies chest pain. - Objective Resuscitation Status: Resuscitation Status FULL:Full Resuscitation MAR Reviewed: Yes Vital Signs & Weight: Vital Signs (12 hours) Temp Pulse Resp BP BP Pulse Ox 01/12/18 07:35 98.1 F 65 25 H 97/49 L 94 L 01/12/18 04:00 97.6 F 61 26 H 98/43 L 100 01/12/18 02:08 100 01/12/18 00:05 96.1 F L 63 27 H 100 01/11/18 23:05 96.1 F L 63 27 H 90/51 L 100 Weight Weight 139 lb 4.8 oz I&O: 01/11/18 01/12/18 01/13/18 06:59 06:59 06:59 Intake Total 10 Output Total 675 Balance -665 Result Diagrams: 01/11/18 20:03 01/12/18 02:15 Phys Exam - Physical Examination HEENT: PERRLA + rales at the bases Cardiovascular: RRR, no significant murmur, no rub Gastrointestinal: soft, non-tender, positive bowel sounds Musculoskeletal: edema present + non-pitting edema bilaterally, with chronic venous stasis changes Dx/Plan (1) Acute on chronic systolic CHF (congestive heart failure) Code(s): I50.23 - ACUTE ON CHRONIC SYSTOLIC (CONGESTIVE) HEART FAILURE Status : Acute Comment: (2) BPH (benign prostatic hyperplasia) Code(s): N40.0 - BENIGN PROSTATIC HYPERPLASIA WITHOUT LOWER URINRY TRACT SYMP Status: Chronic Qualifiers: Lower urinary tract symptom detail: unspecified (3) CAD (coronary artery disease) Code(s): I25.10 - ATHSCL HEART DISEASE OF [place] CORONARY ARTERY W/O ANG PCTRS Status: Chronic Qualifiers: Coronary Disease-Associated Artery/Lesion type: [place] artery [place] vs. transplanted heart: [place] heart Associated angina: without angina Qualified Code(s): I25.10 - Atherosclerotic heart disease of [place] coronary artery without angina pectoris Comment: Continue ASA, Plavix, Lipitor. - Plan * Patient has improved a bit overnight after IV Lasix. Will continue. He was only recently admitted for CHF, and has a fairly low EF, and blood pressure is on the lower side as well. Await Cardiology input regarding medications adjustments- ? candidate for Spironolactone, or Entresto * CAD- stable he does not endorse symptoms or signs of angina * BPH- he has chronic urinary retention, with an indwelling david * Monitor electrolytes, and renal function closely.
--- NOTE | 2018-01-12 12:53 | CON ---
DATE OF CONSULTATION: 01/12/2018 SERVICE: Pulmonary Medicine REASON FOR CONSULTATION: IMCU patient. HISTORY OF PRESENT ILLNESS: The patient is a 77-year-old male with past medical history significant for heart failure. For the last 2 weeks, he has had increasing dyspnea on exertion, orthopnea. He presented to the Emergency Department short of breath. He was not having any fevers, chills, nausea or vomiting. He has a cough, but not bringing up any sputum. He did not have any nausea, vomiting or diarrhea. No hot, red, swollen joints, or new rashes. He has had similar presentations in the past, which resolved with nothing more than diuretics. Either way, in the Emergency Department, he was given a dose of Lasix, initiated noninvasive ventilation. As soon as he arrived in the ICU, the CPAP was interrupted. He is breathing much more comfortably and indicates he is 80% back to baseline. PAST MEDICAL HISTORY: 1. Chronic systolic heart failure. 2. Coronary artery disease. 3. Benign prostatic hypertrophy. 4. Dyslipidemia. 5. Hypertension. PAST SURGICAL HISTORY: 1. Coronary bypass graft x4 vessels. 2. Percutaneous coronary intervention x2. 3. Placement of AICD. 4. Herniorrhaphy. 5. Unilateral orchiectomy. ALLERGIES: No known drug allergies. MEDICATIONS: List of inpatient medications were reviewed. A couple of small updates were made. SOCIAL HISTORY: Negative for illicit drug use. He has a [id number] history of smoking and continues to smoke. He denies any illicit drug use. He is currently and has 2 children. He has no exposure to chemicals, dust, asbestos or tuberculosis. FAMILY HISTORY: Noncontributory. REVIEW OF SYSTEMS: General, head, eyes, nose, throat, cardiovascular, respiratory, GI, , musculoskeletal, neurologic and skin is negative except as mentioned in the HPI. PHYSICAL EXAMINATION: VITAL SIGNS: Afebrile, pulse 64, blood pressure 91/56, respirations 25, saturation 99% on 3 liters nasal cannula. GENERAL: The patient is awake, alert, in no apparent distress. LUNGS: Decent air entry. There is depending crackles present. There is a slightly prolonged expiratory phase, but I do not appreciate any wheezing. HEART: Normal rate, regular. ABDOMEN: Soft, nontender, nondistended. Bowel sounds are positive. MUSCULOSKELETAL: No cyanosis or clubbing. There is 2-3+ pitting in the bilateral lower extremities. NEUROLOGIC: Grossly nonfocal. LABORATORY DATA: WBC 8.2, hemoglobin 12.6, platelets 151,000. INR 1.3. Creatinine 1.47 and roughly stable. This is slightly above baseline. Troponin is minimally elevated and roughly stable for the presentation. BNP 8000, liver function studies are unremarkable. IMAGING: CXR with pulmonary vascular congestion and interstitial fullness, consistent with volume overload. ASSESSMENT: 1. Acute hypoxic respiratory failure. 2. Acute on chronic systolic heart failure. 3. Acute kidney injury, improving. PLAN: We will continue to diurese the patient until he returns to euvolemia. We will interrupt our noninvasive therapy. From my perspective, he is stable for transition out of the IMCU to the telemetry unit. Pulmonary Critical Care will continue to follow for 1-[address] Pack will assume care in the morning. 70 minutes have been devoted to this patient in various activities. I personally reviewed all imaging studies and laboratory data noted within this document. For fifty percent of this time, I was interacting with the patient at the bedside or coordinating care with the care team. For the remainder of the time I was immediately available to the patient in the hospital unit. LAURIE
[2018-01-12] MEDS: Tamsulosin HCl 0.4 MG CAP PO SCH (22:00)
[2018-01-12] MEDS: Atorvastatin Calcium 40 MG TAB PO SCH (22:01)
--- NOTE | 2018-01-13 01:07 | CON ---
DATE OF CONSULTATION: 01/12/2018 HISTORY OF PRESENT ILLNESS: Jacob Huff is a 77-year-old, Latin-[place] male that I have been following for 28 years since December 1989. However, he has only once come to the office for followup. In 1989, he presented to the emergency room 1-2 hours after onset of chest discomfort. He was given thrombolytic therapy for anterolateral ST segment elevation myocardial infarction. He received TPA and had relief of his discomfort. Peak CK was 4319 with an MB of 491. He underwent cardiac catheterization and was found to have anteroapical and septal akinesis. There was a 95% mid LAD lesion, which was a large vessel that wrapped around the apex to the inferior wall. There was a 30% right coronary artery stenosis, 30% circumflex stenosis. The following day, he underwent PTCA of the mid LAD with reduction to 30%. He had some minor pleuritic pain after that. In January 1990, he exercised for 9 minutes on treadmill without chest discomfort. He was to return for followup, but never did. He presented in 07/1990 with chest pain that was relieved with 2 sublingual nitroglycerins. Cardiac enzymes were unremarkable. He underwent repeat catheterization and was found to have 20% proximal LAD and 80%-90% right posterior descending stenosis. The following day, he underwent PTCA of the right PDA lesion with reproduction of his usual chest discomfort with balloon inflation. I did not see him again from January 1991 until he presented in 10/1993. He had been receiving his care at the [facility]. When he presented in 1993, he had chest discomfort associated with nausea and vomiting. He was given antacids without relief followed by sublingual nitroglycerin and gradually his pain resolved. There were no ST segment changes on EKG. He had a non-Q-wave lateral myocardial infarction with CK of 1366 and MB of 141. He was transferred to [place] per the patient's wishes and I do not know exactly what transpired at that time. In 07/2003, he presented to [facility] with chest pressure. He had a non-Q-wave myocardial infarction with troponin of 7.86. He underwent catheterization and was found to have diffuse 3-vessel coronary artery disease. Ejection fraction was 50%-60%. On 02/14/2004, he underwent CABG x4 with KOVACS to the LAD, left radial to the diagonal (radial was piggybacked onto the ramus graft), saphenous vein graft to the ramus and saphenous vein graft to left PDA. He was discharged on postop day 4. I did not see him again until 11/2007 when he presented to [facility] with anterior chest discomfort. There were some ST segment changes compared to previous EKGs. He was given Integrilin and Lovenox. Peak troponin was 1079 with an MB of 11.8. He underwent cardiac catheterization. He had inferoapical akinesis with ejection fraction of 40%-45% and mild mitral regurgitation. There was a 50% distal left main and total occlusion of the LAD in its midportion. There was 90% lesion in the first diagonal. The ramus had a 70% stenosis, circumflex 80% proximal and 90% distal stenosis. The right coronary artery gave rise to right posterior descending, which was seen to fill retrograde from the left posterior descending graft. Bypass grafts revealed the KOVACS to the LAD to be patent with severe distal disease of 90%-95%. The ramus graft was patent. The radial graft to the diagonal (piggybacked onto the ramus graft) was patent. The left posterior descending graft was patent. The following day, he had 17-beat run of ventricular tachycardia and underwent electrophysiology study. He had inducible ventricular tachycardia and a dual chamber ICD was placed. His ICD was not checked from the time it was implanted in 11/2007 until he was seen again in the hospital in 01/2011. He was admitted at that time in 01/2011 with nocturnal episodes of chest discomfort that resolved spontaneously. He had 3 hours of chest discomfort that was relieved in the emergency room with appropriate therapy. He underwent catheterization. His ejection fraction had fallen to 30%-35% with anteroapical and inferoapical akinesis. All grafts were patent. In the distal LAD, there was a 95% lesion and total occlusion of the apical LAD. He was not seen again from 07/2010 until he presented in 06/2014. He complained of 1-1/2 months of chest pressure and discomfort, which would usually occur when he was supine in bed before he would go to sleep. He denied any nausea, vomiting or diaphoresis. He had mildly elevated troponin. He did not have recurrence of pain in the hospital. Echo revealed left atrial and left ventricular enlargement with severe left ventricular dysfunction with ejection fraction of 20%-25%. There is defibrillator wire in the right side of the heart, aortic valvular fibrosis, moderate to severe mitral regurgitation, mild tricuspid regurgitation, and mild aortic insufficiency. He underwent catheterization. There was anteroapical and inferoapical akinesis with ejection fraction of 20%-25%. There was a 50% left main, 80% proximal LAD with probable thrombus just distal to the stenosis. There was an 80% lesion in a very large septal branch. The mid LAD was totally occluded. There was a 90% lesion in the first diagonal. Circumflex 80% proximal stenosis and a 90% distal stenosis. The first obtuse marginal was totally occluded and filled retrograde from the ramus graft. There was 90% ramus stenosis. The right coronary artery was diffusely diseased with 95% mid RCA lesion and 80% distal lesion. Bypass grafts revealed patent KOVACS to the LAD. The LAD was totally occluded distally. The apical LAD filled retrograde from the large septal branches of the LAD. The graft to the ramus was patent with an 80% stenosis distal to the anastomosis. The diagonal graft which was the left radial artery piggybacked onto the ramus graft was patent. Left posterior descending graft was patent. He underwent placement of Resolute 2.5 x 24 mm stent in the proximal LAD, 80% proximal LAD lesion was reduced to 0%. A Mini-Vision 2.0 x 8 mm stent was then placed in the ramus just distal to the graft insertion with reduction from 80% to 0%. During that admission, it was found that his defibrillator was in the pocket, and he underwent replacement of his dual chamber ICD by Dr. Vee. He was to follow up 2 months later; however, as before, he never did. In 2014, he had developed substernal chest pressure radiating to the left side of his chest that would definitely pleuritic in nature. He would be short of breath with that. This almost exclusively occur in the evening when he was supine in bed trying to go to sleep. The discomfort was relieved with nitroglycerin 5-10 minutes. He never had any prolonged episodes. He had increased pedal edema and orthopnea. The peak troponin was 0.823. It was felt that his chest discomfort was probably due to distal vessel disease. Imdur was increased, Ranexa was added, and, ultimately, he was discharged. He did not come to the office for followup. In 12/2014, Mr. Huff presented with 5-6 day history of increased shortness of breath, increased peripheral edema, but denied any chest discomfort. He had been discharged on Ranexa; however, [facility] not [facility]. He was diuresed and be started on Ranexa. Again, he did not come to the office for followup. In 04/2017, he was admitted with urinary tract infection due to chronic indwelling Alonso. Echocardiogram at that time revealed ejection fraction of 25% -30%. He was hospitalized in 11/2017. Echocardiogram at that time revealed moderate left ventricular enlargement, severe left ventricular dysfunction with ejection fraction of 20%-25%. dyskinetic motion of the apical wall, defibrillator wire in the right ventricle, severe left atrial enlargement, mild right atrial enlargement, severe mitral regurgitation, aortic valvular sclerosis, moderate aortic regurgitation, severe tricuspid regurgitation, and mild pulmonic regurgitation. He ultimately was discharged on 12/29/2017 on furosemide 80 b.i.d., carvedilol 3.125 b.i.d. Carvedilol dose require dramatic reduction from before. He now is admitted with fairly abrupt onset of increased shortness of breath yesterday. He also had some pressure in his chest. Overall , he denies any significant chest discomfort. PAST MEDICAL HISTORY: Non-STEMI in 10/2014, hypertension, hyperlipidemia, coronary artery disease, benign prostatic hypertrophy, ischemic cardiomyopathy with ejection fraction of 20%-25%, ventricular tachycardia, history of seizures , COPD. OPERATIONS: CABG x4 in 07/2003 with all grafts patent in 06/2014, dual chamber ICD placement and ultimately replacement when was found to be in the pocket in 06/2014, vasectomy, herniorrhaphy, placement of stent in the proximal LAD and in the ramus distal to the graft insertion, appendectomy. MEDICATIONS: Aspirin 81 daily, atorvastatin 80 at bedtime, carvedilol 3.125 b.i.d., Proscar 5 mg daily, furosemide 80 b.i.d., isosorbide mononitrate 60 daily, potassium chloride 20 b.i.d., Flomax 0.4 daily. ALLERGIES: None. SOCIAL HISTORY: Continues to smoke 1 pack per day. He may drink a 6 pack in a week. 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 FAMILY HISTORY: Father had myocardial infarction. Brother had stroke at age 69. PHYSICAL EXAMINATION: VITAL SIGNS: Blood pressure 110/56, pulse of 66. HEENT: PERRL. NECK: Supple. CHEST: Reveals crackles at the bases. CARDIAC: S1, S2 normal, without any S3, S4 or murmurs. Carotid upstrokes normal, without bruits. ABDOMEN: Normal bowel sounds, without tenderness, organomegaly. EXTREMITIES: Revealed 2-3+ pretibial edema to above the knee. NEUROLOGIC: Grossly intact. SKIN: Warm and dry. LABORATORY DATA AND DIAGNOSTIC STUDIES: EKG revealed sinus rhythm with first- degree AV block, right bundle branch block pattern with a QRS of 146 milliseconds. Sodium 137, potassium 4.2, chloride 105, carbon dioxide 19, BUN 28, creatinine 1.47. Troponin I 0.056. BNP 8853.6. Chest x-ray reveals cardiomegaly with increased pulmonary vascularity. IMPRESSION: 1. Acute on chronic systolic heart failure. An interrogation of his implantable cardioverter-defibrillator, his volume status started to increase in second week of October and has been steadily increasing since that time. With his hospitalization in November and into December, there was no improvement of his OptiVol. 2. Demand ischemia and ischemic cardiomyopathy with last ejection fraction of 20%-25% three weeks ago. 3. Status post coronary artery bypass graft x4 with all grafts patent in 2013. He does have history of distal disease in the left anterior descending as well as enlarged septals, which was not amenable to any type of intervention. 4. Status post drug-eluting stent placement in the proximal left anterior descending and a bare metal stent placed in the ramus distal to the graft insertion in 06/2014. 5. Noncompliance with followups as well as Electrophysiology followups, in fact his last implantable cardioverter-defibrillator was found to be in the pocket. 6. Multiple myocardial infarctions and interventions in the past. 7. Hypertension. 8. Hyperlipidemia. 9. Patient continues to smoke one pack per day. 10. History of ventricular tachycardia. 11. Status post dual-chamber implantable cardioverter-defibrillator placement. PLAN: Mr. Huff is fairly hypotensive with blood pressures frequently here below 100. His carvedilol 3.125 b.i.d. will be discontinued. He certainly may need to be placed on dopamine and dobutamine. He will continue to receive IV Lasix and tomorrow morning will be given metolazone 5 mg to see if his diuresis improves. He does have quite a wide QRS. This is in a right bundle branch block pattern and with Mr. Huff problems with increased shortness of breath and dramatic reduction in his carvedilol dose, I will ask Electrophysiology to see him for consideration of a biventricular ICD. OSIRISD
[2018-01-13 05:05] LABS: Anion Gap 12 mmol/L (10-20); BUN (Urea Nitrogen) 34 mg/dL (8.4-25.7); Calc. Creatinine Clearance 44 mL/min (70-130); Calcium 9.1 mg/dL (7.8-10.44); Carbon Dioxide 23 mmol/L (23-31); Chloride 105 mmol/L (98-107); Estimated GFR-MDRD 57; Glucose 73 mg/dL (83-110); Magnesium 2.2 mg/dL (1.6-2.6); Potassium 4.3 mmol/L (3.5-5.1); Sodium 136 mmol/L (136-145)
[2018-01-13] MEDS: Furosemide 40 MG/4 ML VIAL SLOW IVP SCH ×2 (06:38→14:29)
[2018-01-13] MEDS ORDERED: Metolazone 5 MG TAB PO SCH (08:00)
[2018-01-13] MEDS: Potassium Chloride 20 MEQ TAB PO SCH ×2 (08:47→21:31)
[2018-01-13] MEDS: Aspirin 81 mg Enteric Coated Tablet PO SCH (08:47)
[2018-01-13] MEDS: Finasteride 5 MG TAB PO SCH (08:47)
[2018-01-13] MEDS: Heparin 5,000 UNITS/ML VIAL SC SCH ×2 (08:47→21:31)
--- NOTE | 2018-01-13 09:14 | PDOC.PN ---
- Subjective Encounter Start Date: 01/13/18 Encounter Start Time: 09:12 Mr. Bird was seen today in follow-up of CHF exacerbation. He says he still feels about the same. He is still short of breath with minimal exertion. - Objective Resuscitation Status: Resuscitation Status FULL:Full Resuscitation MAR Reviewed: Yes Vital Signs & Weight: Vital Signs (12 hours) Temp Pulse Resp BP Pulse Ox 01/13/18 07:47 97.6 F 63 16 101/54 L 100 01/13/18 04:00 97.5 F L 60 18 95/35 L 100 01/13/18 00:00 97.5 F L 61 14 94/49 L 98 Weight Admit Weight 139 lb 4.8 oz Weight 136 lb 9.6 oz I&O: 01/12/18 01/13/18 01/14/18 06:59 06:59 06:59 Intake Total 10 1050 Output Total 675 1150 Balance -665 -100 Result Diagrams: 01/11/18 20:03 01/13/18 03:49 Phys Exam - Physical Examination HEENT: PERRLA Respiratory: no wheezing, no rales, no rhonchi, clear to auscultation bilateral Cardiovascular: RRR, no significant murmur, no rub Gastrointestinal: soft, positive bowel sounds Musculoskeletal: edema present + chronic venous stasis, mild erythema Dx/Plan (1) Acute on chronic systolic CHF (congestive heart failure) Code(s): I50.23 - ACUTE ON CHRONIC SYSTOLIC (CONGESTIVE) HEART FAILURE Status : Acute Comment: (2) BPH (benign prostatic hyperplasia) Code(s): N40.0 - BENIGN PROSTATIC HYPERPLASIA WITHOUT LOWER URINRY TRACT SYMP Status: Chronic Qualifiers: Lower urinary tract symptom detail: unspecified (3) CAD (coronary artery disease) Code(s): I25.10 - ATHSCL HEART DISEASE OF [place] CORONARY ARTERY W/O ANG PCTRS Status: Chronic Qualifiers: Coronary Disease-Associated Artery/Lesion type: [place] artery [place] vs. transplanted heart: [place] heart Associated angina: without angina Qualified Code(s): I25.10 - Atherosclerotic heart disease of [place] coronary artery without angina pectoris Comment: Continue ASA, Plavix, Lipitor. - Plan * Acute on chronic systolic heart failure- Cardiology evaluation appreciated. He may need Dobutamin and Dopamin, and he will be evaluated for a Bi- ventricular ICD. He has diuresed some overnight * CAD- stable- no evidence of angina * CKD- renal function is improving with heart failure management * BPH- stable- he has a long standing chronic indwelling catheter.
--- NOTE | 2018-01-13 17:08 | PRG ---
DATE OF SERVICE: 01/13/2018 OBJECTIVE: VITAL SIGNS: He is afebrile, heart rate 67, respiratory rate 16, oximetry on room air is 100%, blood pressure 106/52. LUNGS: Clear now. HEART: Regular rhythm. ABDOMEN: Soft. LABORATORY DATA: Sodium 136, potassium 4.3, chloride 105, bicarbonate 22, BUN 34. Creatinine 1.23, yesterday creatinine was 1.47. Intake and output is negative 100 mL. IMPRESSION: 1. Congestive heart failure, clinically stable. 2. History of coronary artery bypass grafting with patent grafts in 2013. 3. History of multiple myocardial infarctions. 4. History of noncompliance. 5. History of hypertension. 6. Ongoing tobacco use. 7. History of ventricular tachycardia with a defibrillator in place. PLAN: Continue per Cardiology. He is stable to move out of the intermediate care unit in my opinion .
[2018-01-13] MEDS: Tamsulosin HCl 0.4 MG CAP PO SCH (21:31)
[2018-01-13] MEDS: Atorvastatin Calcium 40 MG TAB PO SCH (21:31)
--- NOTE | 2018-01-14 01:35 | CON ---
DATE OF CONSULTATION: 01/13/2018 ELECTROPHYSIOLOGY CONSULTATION NOTE REFERRING PHYSICIAN: Dr. Cheng. I am seeing Mr. Huff at our [facility] stepdown ICU as an electrophysiology clinical education consultant. His problems are: 1. Acute on chronic congestive heart failure. A. Severe reduced LVEF of 20%-25% on echo on 12/24/2017, apical wall motion, acute Left atrial enlargement, severe MR, moderate aortic regurgitation, severe TR, pulmonary hypertension. B. History of ischemic cardiomyopathy, currently reduced LVEF, prior bypass surgery and myocardial infarction. 2. Bifascicular block on EKG. 3. Risk factors include hypertension and hyperlipidemia. ALLERGIES: None. MEDICATIONS: At home include atorvastatin, isosorbide mononitrate, potassium chloride, finasteride, tamsulosin, aspirin, carvedilol, furosemide. SUBJECTIVE: Mr. Huff is here, was admitted yesterday after progressive dyspnea. He was found to be in acute heart failure exacerbation and required transient dobutamine/dopamine and IV diuretics. Now, he is feeling better somewhat. He is able to lay flat. Initially, he was , which has improved as well. REVIEW OF SYSTEMS: Rest of 12-point system otherwise unremarkable. PAST MEDICAL HISTORY: As above. SOCIAL HISTORY: Patient denies smoking, ETOH or drug abuse. FAMILY HISTORY: Noncontributory. OBJECTIVE: VITAL SIGNS: Blood pressure is 106/52, heart rate 67, respiration 16, temperature 97.7 degrees Fahrenheit. GENERAL: He is alert and oriented man, in no apparent distress, bruises in the face noted. NECK: Supple. Jugular veins are slightly distended. CHEST: Coarse with few crackles, now resolved. Few resolving crackles. HEART: No murmur or gallop. ABDOMEN: Benign. Bowel sounds are positive. EXTREMITIES: Lower extremities without edema, clubbing or cyanosis. Pulses are adequate. NEUROLOGIC: Patient is nonfocal. MUSCULOSKELETAL: No joint swelling or deformity. SKIN: Without rash. MUSCULOSKELETAL: No joint swelling or deformities. SKIN: Without rash. DATABASE: Initial EKG reveals sinus rhythm, bifascicular block. Atrial pacing is noted throughout with very long SC. LABORATORY DATA: White count is 8.2, hemoglobin 12.6, platelet count is 151. Sodium 136, potassium 4.3, BUN is 34, creatinine 1.23. BNP 6964. Troponin I is 0.056 and 0.054. Chest x-ray reveals pulmonary vascular congestion and prominence of mild interstitial edema. ASSESSMENT AND PLAN: Mr. Huff is a pleasant, 77-year-old man with prior history of ischemic cardiomyopathy, remote myocardial infarction and bypass surgery, who has a dual-chamber implantable cardioverter defibrillator in place , which appears to have adequate function, but also has a bifascicular block and left ventricular dyssynchrony on his last echocardiogram. His left ventricular ejection fraction is severely reduced, and he has repeated hospitalization for heart failure exacerbation. Our plan would be at this point: 1. I agree that this gentleman would benefit from resynchronization therapy. Now he seems to be stabilizing from his acute heart failure exacerbation. Pros and cons of the LV lead upgrade was discussed with the patient and family. They understand and willing to proceed. We will schedule him in near date. 2. Ischemic cardiomyopathy as per Dr. Cheng. 3. History of tobacco abuse. 4. History of hypertension with borderline blood pressure currently. [facility]
[2018-01-14 04:56] LABS: #Basophils 0.1 thou/uL (0.0-0.2); #Eosinphils 0.3 thou/uL (0.0-0.7); #Lymphocytes 1.1 thou/uL (1.20-3.40); #Monocytes 0.3 thou/uL (0.11-0.59); #Neutrophils 4.4 thou/uL (1.40-6.50); %Eosinophils 4.7 % (0.0-10.0); %Lymphocytes 17.8 % (21.0-51.0); %Monocytes 4.5 % (0.0-10.0); %Neutrophils 72.1 % (42.0-75.0); Hemoglobin 11.1 g/dL (14.0-18.0); Mean Corpuscular HGB CONC 32.7 g/dL (32.0-36.0); Mean Corpuscular Hemoglobin 26.4 pg (27.0-31.0); Mean Corpuscular Volume 80.8 fL (78.0-98.0); Mean Platelet Volume 8.5 fL (7.4-10.4); Platelet Count 149 thou/uL (130-400); RBC Distribution Width 17.3 % (11.5-14.5); White Blood Cell (WBC) Count 6.1 thou/uL (4.8-10.8)
[2018-01-14 05:03] LABS: INR-International Normal Ratio 1.3; Prothrombin Time 16.2 SEC (12.0-14.7)
[2018-01-14 05:34] LABS: BUN (Urea Nitrogen) 32 mg/dL (8.4-25.7); Calc. Creatinine Clearance 45 mL/min (70-130); Calcium 9.3 mg/dL (7.8-10.44); Carbon Dioxide 22 mmol/L (23-31); Estimated GFR-MDRD 60; Glucose 75 mg/dL (83-110); Magnesium 2.3 mg/dL (1.6-2.6)
[2018-01-14 05:42] LABS: Anion Gap 14 mmol/L (10-20); Chloride 102 mmol/L (98-107); Potassium 4.1 mmol/L (3.5-5.1); Sodium 135 mmol/L (136-145)
[2018-01-14] MEDS: Furosemide 40 MG/4 ML VIAL SLOW IVP SCH ×2 (05:56→14:26)
[2018-01-14] MEDS: Aspirin 81 mg Enteric Coated Tablet PO SCH (08:48)
[2018-01-14] MEDS: Finasteride 5 MG TAB PO SCH (08:48)
[2018-01-14] MEDS: Potassium Chloride 20 MEQ TAB PO SCH ×2 (08:48→20:50)
[2018-01-14] MEDS: Heparin 5,000 UNITS/ML VIAL SC SCH ×2 (08:49→20:50)
--- NOTE | 2018-01-14 09:50 | PDOC.PN ---
- Subjective Encounter Start Date: 01/14/18 Encounter Start Time: 09:49 Mr. Huff was seen today in follow-up of CHF exacerbation. He is feeling better today, and his breathing has improved. - Objective Resuscitation Status: Resuscitation Status FULL:Full Resuscitation MAR Reviewed: Yes Vital Signs & Weight: Vital Signs (12 hours) Temp Pulse Resp BP Pulse Ox 01/14/18 07:41 97.3 F L 64 13 100 01/14/18 07:35 97.3 F L 64 13 108/51 L 100 01/14/18 03:49 97.4 F L 64 21 H 100/51 L 100 01/14/18 00:00 97.7 F 64 22 H 111/56 L 97 Weight Admit Weight 139 lb 4.8 oz Weight 136 lb 3 oz I&O: 01/13/18 01/14/18 01/15/18 06:59 06:59 06:59 Intake Total 1050 1010 Output Total 1150 1800 Balance -100 -790 Result Diagrams: 01/14/18 04:42 01/14/18 04:42 Phys Exam - Physical Examination HEENT: PERRLA Respiratory: no wheezing, no rhonchi + mild rales at the bases Cardiovascular: RRR 2/6 systolic murmur Gastrointestinal: soft, non-tender, positive bowel sounds Musculoskeletal: edema present + chronic venous stasis changes Dx/Plan (1) Acute on chronic systolic CHF (congestive heart failure) Code(s): I50.23 - ACUTE ON CHRONIC SYSTOLIC (CONGESTIVE) HEART FAILURE Status : Acute Comment: [place] Heart Association Class 3 (2) BPH (benign prostatic hyperplasia) Code(s): N40.0 - BENIGN PROSTATIC HYPERPLASIA WITHOUT LOWER URINRY TRACT SYMP Status: Chronic Qualifiers: Lower urinary tract symptom detail: unspecified (3) CAD (coronary artery disease) Code(s): I25.10 - ATHSCL HEART DISEASE OF [place] CORONARY ARTERY W/O ANG PCTRS Status: Chronic Qualifiers: Coronary Disease-Associated Artery/Lesion type: [place] artery [place] vs. transplanted heart: [place] heart Associated angina: without angina Qualified Code(s): I25.10 - Atherosclerotic heart disease of [place] coronary artery without angina pectoris Comment: Continue ASA, Plavix, Lipitor. - Plan * Acute on chronic systolic heart failure- improved, he has been diuresing * Plan is for Biverticular ICD placement * CAD- stable. * BPH- stable
--- NOTE | 2018-01-14 12:46 | PDOC.CTH ---
<Medina Good - Last Filed: 01/14/18 12:44> Cardiology Progress Note - Subjective EP progress ntoed: Patient seen and evaluated. Has done well overnight and continues to diurese. SOB resolving but has some orthopnea while completely flat. + fatigue. Otherwise, a 12 point ROS is negative. - Objective Vital Signs Temp Pulse Resp BP Pulse Ox 01/14/18 11:50 96.2 F L 62 22 H 99/50 L 99 01/14/18 07:41 97.3 F L 64 13 100 01/14/18 07:35 97.3 F L 64 13 108/51 L 100 01/14/18 03:49 97.4 F L 64 21 H 100/51 L 100 Admit Weight 139 lb 4.8 oz Weight 136 lb 3 oz 01/13/18 01/14/18 01/15/18 06:59 06:59 06:59 Intake Total 1050 1010 Output Total 1150 1800 Balance -100 -790 - Physical Examination General/Neuro: alert & oriented x3, NAD Neck: other: (mild JVD) Lungs: unlabored respirations, other: (+ orthopnea) Heart: RRR Abdomen: NT/ND, soft Extremities: + edema B - Telemetry Telemetry Rhythm: NSR, bifascular block - Labs Result Diagrams: 01/14/18 04:42 01/14/18 04:42 Troponin/CKMB CK-MB (CK-2) 2.2 ng/mL (0-6.6) 01/11/18 20:03 Troponin I 0.054 ng/mL (< 0.028) H 01/12/18 05:10 - Assessment/Plan Impression: 1. ischemic cardiomyopathy 2. Congestive heart failure exacerbation, two recent hospitalizations for this. Progressing SOB and worsening edema requiring hospitalization and aggressive diuresing. 3. Advance right bundle branch block/bifasciular block causing ventricular dyssynchrony and heart failure exacerbations. 4. Inclusion of a dual chamber ICD, normal operation, minimal RV pacing. Plan: Proceed with upgrade to Bi-V ICD this afternoon. Dr Perez discussed the risks and benefits with patient yesterday. All questions answered today as well. Patient consents to procedure. <Xavier Perez - Last Filed: 01/14/18 15:33> Cardiology Progress Note - Objective Vital Signs Temp Pulse Resp BP Pulse Ox 01/14/18 11:50 96.2 F L 62 22 H 99/50 L 99 01/14/18 07:41 97.3 F L 64 13 100 01/14/18 07:35 97.3 F L 64 13 108/51 L 100 01/14/18 03:49 97.4 F L 64 21 H 100/51 L 100 Admit Weight 139 lb 4.8 oz Weight 136 lb 3 oz 01/13/18 01/14/18 01/15/18 06:59 06:59 06:59 Intake Total 1050 1010 Output Total 1150 1800 Balance -100 -790 - Labs Result Diagrams: 01/14/18 04:42 01/14/18 04:42 Troponin/CKMB CK-MB (CK-2) 2.2 ng/mL (0-6.6) 01/11/18 20:03 Troponin I 0.054 ng/mL (< 0.028) H 01/12/18 05:10 Attending Addendum - Attending Addendum Date/Time: 01/14/18 1081 I personally evaluated the patient and discussed the management with Ms Good. I agree with the History, Examination, Assessment and Plan documented above with any addition or exceptions noted below.
[2018-01-14] MEDS ORDERED: PROPOFOL 200 MG/20 ML VIAL ONE (14:00)
[2018-01-14] MEDS ORDERED: Lidocaine 1% (PF) 30 ML VIAL ONE ×2 (14:35→15:56)
[2018-01-14] MEDS ORDERED: CEFAZOLIN/Water 2 GM/20 ML SYRINGE ONE (14:36)
[2018-01-14] MEDS ORDERED: Fentanyl 100 MCG/2 ML VIAL ONE (15:08)
[2018-01-14] MEDS ORDERED: Midazolam HCl 2 mg/2 ml Vial ONE (16:02)
--- NOTE | 2018-01-14 16:51 | PRG ---
DATE OF SERVICE: 01/14/2018 SUBJECTIVE: He is scheduled for pacemaker upgrade today. OBJECTIVE: VITAL SIGNS: He is afebrile, heart rate 62, respiratory rate 22, oximetry is 99, blood pressure 99/5 0. LUNGS: Clear. HEART: Regular rhythm. ABDOMEN: Soft. LABORATORY DATA: White count 6.1, hemoglobin 11.1, platelets 149. Electrolytes were unremarkable. Potassium is 4.1. Cultures were reviewed. He has grown E. coli out of his urine. I have recommended that we give him Cefepime to cover the E. coli, hopefully we can simplify his anti microbial therapy tomorrow. The positive urine culture was relayed to the salon shampoo assistant.
[2018-01-14] MEDS ORDERED: Acetaminophen/Codeine 30-300mg Tablet PO PRN (19:15)
[2018-01-14] MEDS ORDERED: Cosyntropin 250 MCG VIAL SLOW IVP SCH (20:30)
[2018-01-14] MEDS: Atorvastatin Calcium 40 MG TAB PO SCH (20:50)
[2018-01-14] MEDS: Tamsulosin HCl 0.4 MG CAP PO SCH (20:50)
[2018-01-14] MEDS: Cefepime 1 GM in Sodium Chloride 0.9% 100 ML IVPB SCH (20:51)
[2018-01-15] MEDS: Acetaminophen/Codeine 30-300mg Tablet PO PRN (03:38)
[2018-01-15] MEDS: Furosemide 40 MG/4 ML VIAL SLOW IVP SCH (06:12)
[2018-01-15] MEDS ORDERED: Metolazone 5 MG TAB PO SCH (08:00)
[2018-01-15] MEDS: Aspirin 81 mg Enteric Coated Tablet PO SCH (08:55)
[2018-01-15] MEDS: Finasteride 5 MG TAB PO SCH (08:55)
[2018-01-15] MEDS: Potassium Chloride 20 MEQ TAB PO SCH ×2 (08:55→20:50)
[2018-01-15] MEDS: Heparin 5,000 UNITS/ML VIAL SC SCH ×2 (08:55→20:50)
[2018-01-15] MEDS: Cefepime 1 GM in Sodium Chloride 0.9% 100 ML IVPB SCH (08:56)
[2018-01-15] MEDS ORDERED: Carvedilol 6.25 MG TAB PO SCH (09:30)
[2018-01-15 09:36] LABS: Anion Gap 16 mmol/L (10-20); BUN (Urea Nitrogen) 27 mg/dL (8.4-25.7); Calc. Creatinine Clearance 44 mL/min (70-130); Carbon Dioxide 22 mmol/L (23-31); Chloride 102 mmol/L (98-107); Estimated GFR-MDRD 63; Glucose 76 mg/dL (83-110); Sodium 136 mmol/L (136-145)
--- NOTE | 2018-01-15 09:38 | RAD ---
SINGLE VIEW OF THE CHEST: COMPARISON: 12/21/17. HISTORY: AICD exchange. FINDINGS: A single view of the chest shows an enlarged but stable cardiomediastinal silhouette. The patient is status post sternotomy. The pacemaker generator has been exchanged. The pacer leads have been arias ged and there is now a 3-lead pacemaker with its leads in the right atrium, right ventricle, and lacy nary sinus. No evidence of pneumothorax is seen. A veil-like opacity over the inferior aspect of th e right thorax may represent a layering pleural effusion. IMPRESSION: 1. Status post pacemaker exchange without evidence of complication. 2. Likely small right pleural effusion. POS: OFF
--- NOTE | 2018-01-15 10:18 | PDOC.PN ---
- Subjective Encounter Start Date: 01/15/18 Encounter Start Time: 10:17 Mr. Huff was seen today in follow-up. He feels a little tired, but otherwise ok. He denies any chest pain. - Objective Resuscitation Status: Resuscitation Status FULL:Full Resuscitation MAR Reviewed: Yes Vital Signs & Weight: Vital Signs (12 hours) Temp Pulse Resp BP Pulse Ox 01/15/18 07:41 98.0 F 72 19 114/52 L 100 01/15/18 04:00 98.3 F 67 17 109/47 L 99 01/15/18 00:00 98.3 F 70 25 H 110/46 L 100 Weight Admit Weight 139 lb 4.8 oz Weight 124 lb 12.8 oz I&O: 01/14/18 01/15/18 01/16/18 06:59 06:59 06:59 Intake Total 1010 580 Output Total 1800 2750 Balance -790 -2170 Result Diagrams: 01/14/18 04:42 01/15/18 03:34 Phys Exam - Physical Examination HEENT: PERRLA Respiratory: no wheezing, no rales, no rhonchi, clear to auscultation bilateral Cardiovascular: RRR, no significant murmur, no rub + device pocket without induration or erythema Gastrointestinal: soft, non-tender, positive bowel sounds Musculoskeletal: edema present + chronic venous stasis changes Dx/Plan (1) Acute on chronic systolic CHF (congestive heart failure) Code(s): I50.23 - ACUTE ON CHRONIC SYSTOLIC (CONGESTIVE) HEART FAILURE Status : Acute Comment: [place] Heart Association Class 3 (2) BPH (benign prostatic hyperplasia) Code(s): N40.0 - BENIGN PROSTATIC HYPERPLASIA WITHOUT LOWER URINRY TRACT SYMP Status: Chronic Qualifiers: Lower urinary tract symptom detail: unspecified (3) CAD (coronary artery disease) Code(s): I25.10 - ATHSCL HEART DISEASE OF [place] CORONARY ARTERY W/O ANG PCTRS Status: Chronic Qualifiers: Coronary Disease-Associated Artery/Lesion type: [place] artery [place] vs. transplanted heart: [place] heart Associated angina: without angina Qualified Code(s): I25.10 - Atherosclerotic heart disease of [place] coronary artery without angina pectoris Comment: Continue ASA, Plavix, Lipitor. - Plan * Acute on chronic systolic heart failure- improved, patient is s/p ICD upgrade * Carvediolol has been added * Lasix has been changed to p.o. * Hypothermia- resolved- will follow-up on Cosyntropin stem test results * Continue to monitor as recommended by Cardiology
--- NOTE | 2018-01-15 12:22 | PRG ---
DATE OF SERVICE: 01/15/2018 Mr. Huff says he feels great. He had a pacer placed yesterday. He is in no distress. PHYSICAL EXAMINATION: VITAL SIGNS: He is afebrile, heart rate 61, respiratory rate 15, oximetry 100% on room air. Blood p ressure 121/60. LUNGS: Clear. HEART: Regular rhythm. Apparently he has a chronically indwelling Alonso according to his family. He did not volunteer this information. His family says it has been in for months. He is followed by a [facility]. Keri carter have never talked about surgical treatment of BPH. He says he has never had a voiding trial with out a Alonso. 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 Since Alonso is going to stay in it would not be inappropriate to have him referred for either a voiding trial or a suprapubic catheter placement, but at this point in time, i t is low on the priority list. He still wants to follow up at the [facility]. His antibiotics have been dis continued. He is stable to move out of the Intermediate Care Unit in my opinion.
[2018-01-15 12:38] VITALS: BMI 20.7
--- NOTE | 2018-01-15 14:10 | PDOC.CTH ---
<Medina Good - Last Filed: 01/15/18 14:13> Cardiology Progress Note - Subjective EP progress note: He has done well overnight. Reports mild-moderate discomfort at L/R incisions from procedure yesterday. Eating and drinking well. No cardiac concerns or complaints today. Having less shortness of breath. Denies heart racing, palpitations, chest paint, pressure, syncope/near syncope, stroke or stroke like symptoms. - Objective Vital Signs Temp Pulse Resp BP Pulse Ox 01/15/18 10:54 98.6 F 61 15 121/60 100 01/15/18 08:00 98.0 F 72 19 100 01/15/18 07:41 98.0 F 72 19 114/52 L 100 01/15/18 04:00 98.3 F 67 17 109/47 L 99 Admit Weight 139 lb 4.8 oz Weight 124 lb 12.8 oz 01/14/18 01/15/18 01/16/18 06:59 06:59 06:59 Intake Total 1010 580 Output Total 1800 2750 Balance -790 -2170 - Physical Examination General/Neuro: alert & oriented x3, NAD Neck: no JVD present Lungs: unlabored respirations Heart: RRR Abdomen: NT/ND Extremities: other: (B/L chest incision CDI with bruising and surgical glue in place. No signs of infection) - Labs Result Diagrams: 01/14/18 04:42 01/15/18 03:34 Troponin/CKMB CK-MB (CK-2) 2.2 ng/mL (0-6.6) 01/11/18 20:03 Troponin I 0.054 ng/mL (< 0.028) H 01/12/18 05:10 - Assessment/Plan 1. Ischemic cardiomyopathy 2. Congestive heart failure exacerbation, two recent hospitalizations for this. Progressing SOB and worsening edema requiring hospitalization and aggressive diuresing. 3. Advance right bundle branch block/bifasciular block causing ventricular dyssynchrony and heart failure exacerbations. 4. Bi-V ICD placed 01.14.18. Plan: Uupgraded to Bi-V ICD yesterday afternoon. Left SCV was occluded requiring LV lead to be placed via the right SVC and tunneled to his left sided device. Slight hematoma present at left side incision this AM and pressure was applied. Continue post implant antibiotics and monitor for signs of infection. <Xavier Perez - Last Filed: 01/16/18 14:43> Cardiology Progress Note - Objective Vital Signs Temp Pulse Resp BP BP Pulse Ox 01/16/18 11:33 97.8 F 60 24 H 98/46 L 100 01/16/18 08:06 97.4 F L 61 24 H 105/53 L 100 01/16/18 08:00 97.4 F L 61 24 H 100 01/16/18 04:00 97.5 F L 67 18 105/46 L 100 Admit Weight 139 lb 4.8 oz Weight 133 lb 1 oz 01/15/18 01/16/18 01/17/18 06:59 06:59 06:59 Intake Total 580 1190 Output Total 2750 2100 Balance -2170 -910 - Labs Result Diagrams: 01/14/18 04:42 01/16/18 03:28 Troponin/CKMB CK-MB (CK-2) 2.2 ng/mL (0-6.6) 01/11/18 20:03 Troponin I 0.054 ng/mL (< 0.028) H 01/12/18 05:10 Attending Addendum - Attending Addendum Date/Time: 01/16/18 8157 I personally evaluated the patient and discussed the management with ms Good. I agree with the History, Examination, Assessment and Plan documented above with any addition or exceptions noted below.
[2018-01-15] MEDS: Carvedilol 3.125 MG TAB PO SCH (17:42)
[2018-01-15] MEDS: Furosemide 80 MG TAB PO SCH (17:42)
[2018-01-15] MEDS: Tamsulosin HCl 0.4 MG CAP PO SCH (20:50)
[2018-01-15] MEDS: Cephalexin 250 MG CAP PO SCH (20:50)
[2018-01-15] MEDS: Atorvastatin Calcium 40 MG TAB PO SCH (20:50)
[2018-01-16] MEDS: Cephalexin 250 MG CAP PO SCH ×5 (02:46→21:18)
[2018-01-16 04:12] LABS: Anion Gap 14 mmol/L (10-20); BUN (Urea Nitrogen) 26 mg/dL (8.4-25.7); Calc. Creatinine Clearance 45 mL/min (70-130); Calcium 9.2 mg/dL (7.8-10.44); Carbon Dioxide 24 mmol/L (23-31); Chloride 100 mmol/L (98-107); Estimated GFR-MDRD 65; Glucose 105 mg/dL (83-110); Magnesium 2.1 mg/dL (1.6-2.6); Potassium 3.9 mmol/L (3.5-5.1); Sodium 134 mmol/L (136-145)
[2018-01-16] MEDS ORDERED: Metolazone 5 MG TAB PO SCH (08:15)
[2018-01-16] MEDS: Furosemide 80 MG TAB PO SCH ×2 (08:25→14:43)
[2018-01-16] MEDS: Finasteride 5 MG TAB PO SCH (08:26)
[2018-01-16] MEDS: Aspirin 81 mg Enteric Coated Tablet PO SCH (08:26)
[2018-01-16] MEDS: Carvedilol 3.125 MG TAB PO SCH ×2 (08:26→16:58)
[2018-01-16] MEDS: Potassium Chloride 20 MEQ TAB PO SCH ×2 (08:29→21:18)
[2018-01-16] MEDS: Heparin 5,000 UNITS/ML VIAL SC SCH (08:29)
[2018-01-16] MEDS: Acetaminophen/Codeine 30-300mg Tablet PO PRN (10:41)
--- NOTE | 2018-01-16 13:08 | PRG ---
DATE OF SERVICE: 01/16/2018 Mr. Huff is doing well. He has no complaints. PHYSICAL EXAMINATION: LUNGS: His lungs are clear. HEART: Regular rhythm. ABDOMEN: Abdomen is soft. LABORATORY: Sodium 134, potassium 3.9, chloride 100, bicarbonate 24, BUN 26, creatinine 1.09. IMPRESSION: 1. Chronic systolic heart failure. 2. Status post placement of biventricular pacemaker. 3. Chronic indwelling Alonso. If it is felt that his risk is too high for a TURP then the best option would be a suprapubic cathete r. I have encouraged him to follow up with a local urologist since he lives here in [place] to evaluat e whether or not this would be the appropriate next step. A chronic indwelling Alonso is not the best option for him. We will continue to follow while he is here, but he appears to be medically stable. I have given him my office number in the event the family has any questions. I have also given him the number of a [facility] urologist.
--- NOTE | 2018-01-16 13:42 | PDOC.CTH ---
<Medina Good - Last Filed: 01/16/18 13:40> Cardiology Progress Note - Objective Vital Signs Temp Pulse Resp BP BP Pulse Ox 01/16/18 11:33 97.8 F 60 24 H 98/46 L 100 01/16/18 08:06 97.4 F L 61 24 H 105/53 L 100 01/16/18 08:00 97.4 F L 61 24 H 100 01/16/18 04:00 97.5 F L 67 18 105/46 L 100 Admit Weight 139 lb 4.8 oz Weight 133 lb 1 oz 01/15/18 01/16/18 01/17/18 06:59 06:59 06:59 Intake Total 580 1190 Output Total 2750 2100 Balance -2170 -910 - Labs Result Diagrams: 01/14/18 04:42 01/16/18 03:28 Troponin/CKMB CK-MB (CK-2) 2.2 ng/mL (0-6.6) 01/11/18 20:03 Troponin I 0.054 ng/mL (< 0.028) H 01/12/18 05:10 - Assessment/Plan 1. Ischemic cardiomyopathy 2. Congestive heart failure exacerbation, two recent hospitalizations for this. Progressing SOB and worsening edema requiring hospitalization and aggressive diuresing. 3. Advance right bundle branch block/bifasciular block causing ventricular dyssynchrony and heart failure exacerbations. 4. Bi-V ICD placed 01.14.18. 5. Hematoma to left chest wall, pressure dressing inplace. Will recheck H&H today. Reports mild discomfort at site. Prophylactic heparin is on hold until this acute bleeding has resolved. May be able to resume after 1-2 days. Plan: Hematoma present at left side incision this AM and pressure was applied. Continue post implant antibiotics and monitor for signs of infection. rechecking H&H. keep pressure dressing in place. hold heparin. <Xavier Perez - Last Filed: 01/19/18 15:35> Cardiology Progress Note - Objective Admit Weight 139 lb 4.8 oz Weight 130 lb 12.8 oz 01/18/18 01/19/18 01/20/18 06:59 06:59 06:59 Intake Total 240 Balance 240 - Labs Result Diagrams: 01/14/18 04:42 01/17/18 04:43 Troponin/CKMB CK-MB (CK-2) 2.2 ng/mL (0-6.6) 01/11/18 20:03 Troponin I 0.054 ng/mL (< 0.028) H 01/12/18 05:10 Attending Addendum - Attending Addendum Date/Time: 01/19/18 9967 I personally evaluated the patient and discussed the management with Ms Good. I agree with the History, Examination, Assessment and Plan documented above with any addition or exceptions noted below.
--- NOTE | 2018-01-16 16:35 | PRG ---
DATE OF SERVICE: 01/16/2018 SUBJECTIVE: The patient is seen and examined at the bedside. He is feeling significantly better. OBJECTIVE: VITAL SIGNS: Blood pressure is 105/53, pulse is 61, temperature 97.4, respirations 24, O2 saturation s 100% on room air. HEENT: Atraumatic, normocephalic. Eyes are PERRLA. Skin of both cheeks are very dark color, blacki sh looking. Oral mucosa is somewhat dry. NECK: Supple. JVD 1+. LUNGS: Breath sounds diminished at both bases with few crackles bilaterally. HEART: S1, S2 normal, no S3, no S4. ABDOMEN: Soft, nontender. Bowel sounds are present, no organomegaly. NEUROLOGIC: He is able to follow my commands, does not have any motor deficits. LABORATORY DATA: Showed sodium of 134, potassium 3.9, chloride 100, CO2 24, BUN 26, creatinine 1.09. The rest of chemistry within normal limits. IMPRESSION: 1. Ischemic cardiomyopathy. 2. Congestive heart failure exacerbation. 3. Status post upgrade on this pacemaker secondary to ventricular dyssynchrony. 4. Hematoma of the left chest wall. Pressure dressing in place. 5. Chronic indwelling Alonso. PLAN: It is felt that he is too high risk for TURP, so the best option would be a suprapubic cathete r and Dr. Pack advised him to follow up with a local urologist for further recommendation on this is yelitza. He is moved out to the telemetry floor. The case was discussed with Dr. Cheng, his cardiolo gist, and most likely he will be discharged home tomorrow.
[2018-01-16] MEDS: Atorvastatin Calcium 40 MG TAB PO SCH (21:18)
[2018-01-16] MEDS: Tamsulosin HCl 0.4 MG CAP PO SCH (21:19)
[2018-01-17] MEDS: Cephalexin 250 MG CAP PO SCH ×3 (03:03→15:13)
[2018-01-17 05:33] LABS: Anion Gap 12 mmol/L (10-20); BUN (Urea Nitrogen) 24 mg/dL (8.4-25.7); Calc. Creatinine Clearance 52 mL/min (70-130); Calcium 9.1 mg/dL (7.8-10.44); Carbon Dioxide 28 mmol/L (23-31); Chloride 97 mmol/L (98-107); Estimated GFR-MDRD 74; Glucose 119 mg/dL (83-110); Potassium 3.8 mmol/L (3.5-5.1); Sodium 133 mmol/L (136-145)
[2018-01-17] MEDS: Carvedilol 3.125 MG TAB PO SCH (08:53)
[2018-01-17] MEDS: Potassium Chloride 20 MEQ TAB PO SCH (08:53)
[2018-01-17] MEDS: Finasteride 5 MG TAB PO SCH (08:53)
[2018-01-17] MEDS: Furosemide 80 MG TAB PO SCH ×2 (08:54→15:14)
[2018-01-17] MEDS: Aspirin 81 mg Enteric Coated Tablet PO SCH (08:54)
--- NOTE | 2018-01-17 10:04 | PDOC.CTH ---
Cardiology Progress Note - Subjective Patient with no complaints - Objective Vital Signs Temp Pulse Resp BP Pulse Ox 01/17/18 07:59 97.5 F L 66 17 98 01/17/18 07:56 97.5 F L 66 17 95/50 L 98 01/17/18 04:00 98.3 F 65 12 102/59 L 95 01/16/18 23:53 98.2 F 72 16 111/54 L 92 L Admit Weight 139 lb 4.8 oz Weight 130 lb 12.8 oz 01/16/18 01/17/18 01/18/18 06:59 06:59 06:59 Intake Total 1190 1560 Output Total 2100 2775 Balance -910 -1215 - Physical Examination General/Neuro: alert & oriented x3 Neck: no JVD present Lungs: CTA Heart: RRR Abdomen: NT/ND Extremities: other: (no edema) Other PE findings: resolving hematoma to right chest wall - Telemetry 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 Acute on chronic systolic CHF 2. ICMO s/p BiV ICD - s/p hematoma that is now improved 3. CAD s/p CABG x 4 and PCI to LAD and ramus 4. HTN 5. Chronic david 6. History of noncompliance Appears euvolemic. Doing well. need to start discharge planning.
[2018-01-17 16:52] VITALS: BP 98/56; TEMP 97.5
== END 2018-01-17 16:30 | disposition home or self-care (01) | DRG 226 ==
LOC: ERS 19:49 → IMCU/EMU 21:44 → 2NO 01-16 15:27
PROVIDERS: ADMIT Internal Medicine; ATTEND Internal Medicine
PROC: 02HL3KZ Insertion of Defibrillator Lead into Left Ventricle, Percutaneous Approach (ICD-10-PCS; principal; 2018-01-14)
PROC: 0JH609Z Insertion of Cardiac Resynchronization Defibrillator Pulse Generator into Chest Subcutaneous Tissue and Fascia, Open Approach (ICD-10-PCS; 2018-01-14)
PROC: 0JPT0PZ Removal of Cardiac Rhythm Related Device from Trunk Subcutaneous Tissue and Fascia, Open Approach (ICD-10-PCS; 2018-01-14)
DX: I13.0 Hypertensive heart and chronic kidney disease with heart failure and stage 1 through stage 4 chronic kidney disease, or unspecified chronic kidney disease (principal); I50.23 Acute on chronic systolic (congestive) heart failure; J96.01 Acute respiratory failure with hypoxia; I45.2 Bifascicular block; I24.8 Other forms of acute ischemic heart disease; N17.9 Acute kidney failure, unspecified; I25.5 Ischemic cardiomyopathy; I25.10 Atherosclerotic heart disease of native coronary artery without angina pectoris; I45.10 Unspecified right bundle-branch block; N40.0 Benign prostatic hyperplasia without lower urinary tract symptoms; Z79.82 Long term (current) use of aspirin; I25.2 Old myocardial infarction; Z95.1 Presence of aortocoronary bypass graft; N18.9 Chronic kidney disease, unspecified; J44.9 Chronic obstructive pulmonary disease, unspecified; F17.210 Nicotine dependence, cigarettes, uncomplicated; E78.5 Hyperlipidemia, unspecified
CPT/HCPCS: 33224; 36005; 36415; 71045; 75820; 80048; 80053; 80400; 82274; 82553; 83735; 83880; 84484; 85025; 85610; 87077; 87086; 93005; 93641; 93798; 94660; 94760; 96374; A4216; C1882; C1900; J0692; J0834; J1644; J1940; J2001; J2250; J2704; J3010; J3490; J7050

== ENCOUNTER 2018-01-26 22:18 | Inpatient (IN) | payer MEDICARE, OTHER ==
--- NOTE | 2018-01-26 22:45 | RAD ---
CHEST ONE VIEW: HISTORY: Chest pain. COMPARISON: Chest radiograph from 01/15/2018. FINDINGS: Heart size is enlarged. Mild interval improvement of the pulmonary edema. Small effusions. The cardiac device is similar, given the differences in patient rotation. Mild prominence of the pulmonary arteries. No pneumothorax. IMPRESSION: Improvement of the pulmonary edema from the comparison examination. POS: [facility]
[2018-01-26 23:03] LABS: Bilirubin Negative (Negative); Blood, Urine Moderate (Negative); Clarity CLOUDY (Clear); Glucose, Urine (Dipstick) Negative (Negative); Leukocyte Large (Negative); Nitrite Negative (Negative); Protein, Urine (Dipstick) 30 mg/dL (Neg-Trace); Specific Gravity, Urine 1.019 (1.002-1.036)
[2018-01-26] MEDS ORDERED: Nitroglycerin 0.4 MG TAB (25 Tab Bottle) ONE (23:03)
[2018-01-26 23:04] LABS: Bacteria/HPF None Seen HPF (None Seen); Hyaline Casts/LPF 4-6 HYALINE CAST LPF (0-3 Hyaline); Pathc Cast-AUWi Flag 1.01 (0-2.49); RBC/HPF GREATER THAN 50-TNTC HPF (0-3); Squamous Epithelial None Seen HPF (0-3)
[2018-01-26 23:19] LABS: #Eosinphils 0.4 thou/uL (0.0-0.7); #Lymphocytes 1.4 thou/uL (1.20-3.40); #Monocytes 0.4 thou/uL (0.11-0.59); %Basophils 0.6 % (0.0-1.0); %Eosinophils 5.7 % (0.0-10.0); %Lymphocytes 23.2 % (21.0-51.0); %Monocytes 6.3 % (0.0-10.0); %Neutrophils 64.3 % (42.0-75.0); Hemoglobin 10.1 g/dL (14.0-18.0); Mean Corpuscular HGB CONC 31.7 g/dL (32.0-36.0); Mean Corpuscular Hemoglobin 26.3 pg (27.0-31.0); Mean Corpuscular Volume 82.9 fL (78.0-98.0); Platelet Count 176 thou/uL (130-400); RBC Distribution Width 20.2 % (11.5-14.5); Red Blood Cell (RBC) Count 3.85 mill/uL (4.70-6.10); White Blood Cell (WBC) Count 6.2 thou/uL (4.8-10.8)
[2018-01-26 23:28] LABS: ALT (SGPT) 36 U/L (8-55); AST (SGOT) 47 U/L (5-34); Albumin 3.7 g/dL (3.4-4.8); Alkaline Phosphatase 157 U/L (40-150); Anion Gap 12 mmol/L (10-20); BUN (Urea Nitrogen) 26 mg/dL (8.4-25.7); Bilirubin, Total 1.4 mg/dL (0.2-1.2); CK (CPK) 46 U/L (30-200); Calc. Creatinine Clearance 0 mL/min (70-130); Calcium 9.3 mg/dL (7.8-10.44); Carbon Dioxide 26 mmol/L (23-31); Chloride 103 mmol/L (98-107); Estimated GFR-MDRD 74; Globulin 3.2 g/dL (2.4-3.5); Glucose 141 mg/dL (83-110); Lipase 56 U/L (8-78); Potassium 3.8 mmol/L (3.5-5.1); Protein, Total 6.9 g/dL (5.8-8.1); Sodium 137 mmol/L (136-145)
[2018-01-26 23:32] LABS: CKMB 2.2 ng/mL (0-6.6)
[2018-01-26 23:34] LABS: Troponin I 0.414 ng/mL (< 0.028)
[2018-01-27] MEDS ORDERED: Enoxaparin Sodium 60 MG/0.6 ML SYRINGE ONE (00:46)
[2018-01-27] MEDS ORDERED: Acetaminophen 325 MG TAB PO PRN (01:48)
[2018-01-27] MEDS ORDERED: Ondansetron HCl/PF 4 MG/2 ML Vial IVP PRN (01:48)
[2018-01-27] MEDS ORDERED: Ondansetron ODT 4 MG TAB SL PRN (01:48)
[2018-01-27 02:26] VITALS: BMI 20.9
[2018-01-27 02:51] LABS: Troponin I 0.369 ng/mL (< 0.028)
[2018-01-27 05:37] LABS: Troponin I 0.418 ng/mL (< 0.028)
[2018-01-27] MEDS ORDERED: Aspirin 325 mg Enteric Coated Tablet PO SCH (09:00)
[2018-01-27] MEDS ORDERED: HYDROcodone/Acetaminophen 7.5/325 mg Tablet PO PRN (11:27)
[2018-01-27] MEDS ORDERED: Nitroglycerin 0.4 MG TAB (25 Tab Bottle) PO PRN (11:27)
[2018-01-27] MEDS ORDERED: HYDROcodone/Acetaminophen 5/325 mg Tablet PO PRN (11:27)
--- NOTE | 2018-01-27 14:03 | HP ---
DATE OF ADMISSION: 01/27/2018. CHIEF COMPLAINT: Chest pain. HISTORY OF PRESENT ILLNESS: This is a 77-year-old male with a known history of coronary art kirby disease, status post stents in the past. The patient is a known patient to Dr. Shekhar Cheng. The patient was in his usual state of health for the past few weeks. He has been suffering with on and off chest pains and yesterday his chest pain got worsened, so he asked his daughter to bring him to the ER. The patient arrived in the ER, he was alert, but mildly disoriented. He feels that he rider s been in the hospital for a few days. He is accompanied by his son-in-law who is at the bedside. H e denies having any chest pain at this time. No nausea, no vomiting, no diarrhea, no constipation. No history of cough or any congestion. No history of any trauma to his chest. PAST MEDICAL HISTORY: 1. History of coronary artery disease, status post stents. 2. History of coronary artery bypass grafting. 3. History of benign prostatic hypertrophy. 4. History of chronic congestive heart failure, systolic dysfunction. 5. History of chronic kidney disease. PAST SURGICAL HISTORY: CABG. SOCIAL HISTORY: The patient is not a known smoker. No history of alcohol. No history of illicit dr ug use. FAMILY HISTORY: No significant family history of coronary artery disease. REVIEW OF SYSTEMS: All 12 systems are reviewed with the patient thoroughly and found to be negative at this time. Systems reviewed are HEENT, CVS, CORSET FITTER, respiratory, GI, . Constitutional: Weight loss or gain, sense of well-being, ability to conduct usual activities, exerc ise tolerance. Skin/Breast: Rash, itching, changes in hair growth or loss, nail changes, breast lumps, tenderness, swelling, nipple discharge. Eyes: Vision, double vision, tearing, blind spots, pain. ENT/Mouth: Headaches (location, time of onset, duration, precipitating factors), vertigo, lightheadedness, injury. Vision, double vision, tearing, blind spots, pain, nose b leeding, colds, obstruction, discharge, dental difficulties, gingival bleeding, dentures, neck stiffn ess, pain, tenderness, masses in thyroid or other areas Cardiovascular: Precordial pain, substernal distress, palpitations, syncope, dyspnea on exertion, or thopnea, nocturnal paroxysmal dyspnea, edema, cyanosis, hypertension, heart murmurs, varicosities, ph lebitis, claudication. Respiratory: Pain, shortness of breath, wheezing, stridor, cough, hemoptysis, fever or night sweats Gastrointestinal: Poor appetite, dysphagia, indigestion, abdominal pain, heartburn, eructation, naus ea, vomiting, hematemesis, jaundice, constipation, or diarrhea, abnormal stools (aayush-colored, tarry, bloody, greasy, foul smelling), flatulence, hemorrhoids, recent changes in bowel habits. Genitourinary: Urgency, frequency, dysuria, nocturia, hematuria, polyuria, oliguria, unusual (or caro nge in) color of urine, stones, hesitancy, change in size of stream, dribbling, acute retention or in continence, libido, potency. Musculoskeletal: Pain, swelling, redness or heat of muscles or joints, limitation, of motion, muscular weakness, atrophy, cramps. Neurologic/Psychiatric: Convulsions, paralyses, tremor, incoordination, parasthesias, difficulties w ith memory of speech, sensory or motor disturbances, or muscular coordination (ataxia, tremor), emoti onal problems, anxiety, depression, previous psychiatric care, unusual perceptions, hallucinations. Allergy/Immunologic: Skin rash, anemia, bleeding tendency, polydipsia, polyuria, intolerance to heat or cold. ALLERGIES: No known drug allergies. HOME MEDICATIONS: 1. Aspirin 81 mg p.o. daily. 2. Atorvastatin 80 mg p.o. at bedtime. 3. Coreg 3.125 mg p.o. b.i.d. 4. Finasteride 5 mg p.o. daily. 5. Lasix 80 mg p.o. b.i.d. 6. Isosorbide mononitrate 60 mg p.o. daily. 7. Potassium 20 mEq p.o. b.i.d. 8. Tamsulosin 0.4 mg p.o. at bedtime. PHYSICAL EXAMINATION: VITAL SIGNS: Blood pressure is 110/54, heart rate is 18, saturation is 98% on room air. GENERAL: The patient is moderately built and moderately nourished, does not appear to be in acute di stress at this time. He is alert, oriented x3. HEENT: Atraumatic, normocephalic. PERRLA. Extraocular muscles are intact. Oral mucosa pink and mo ist. CARDIOVASCULAR: S1, S2 normal. No murmurs, rubs or gallops. LUNGS: Bilateral air entry was equal. No wheezing, no crackles. ABDOMEN: Soft, nontender, no guarding, no rebound tenderness. Bowel sounds normal. MUSCULOSKELETAL: No calf tenderness. No pedal edema. No joint tenderness, no joint swelling. SKIN: No cyanosis, no erythema, no rash, no pallor. NEUROLOGIC: Cranial nerve examination intact. No focal deficits noted. LABORATORY DATA: Sodium 137, potassium 3.8, chloride 103, bicarbonate is , BUN is 26, creatinin e 0.98, troponin 0.414. BNP is 2796. Chest x-ray was unremarkable. ASSESSMENT AND PLAN: 1. Mbc-BO-xphrhib elevation myocardial infarction. 2. Acute on chronic congestive heart failure. 3. History of coronary artery disease, status post coronary artery bypass grafting. 4. Hypertension. 5. Hyperlipidemia. PLAN: 1. Plan is to closely monitor this patient. At this time, we will consult Cardiology. The patient will be started on 1 mg/kg Lovenox b.i.d. and will continue the patient on aspirin and beta whitney o n same dose which he has been on at home. Also, continue on the beta whitney. 2. The patient has a history of congestive heart failure. No evidence of any worsening noted at thi s time. We will continue the patient on the Lasix home dose of 80 mg. Continue supplement with pota ssiums along with the Lasix. We will continue the patient on the lisinopril 2.5 mg home dose. 3. Hypertension. The patient has low blood pressures at this time. We will closely monitor. We wi ll restart all his home medications and follow Cardiology recommendations. 4. History of hyperlipidemia. We will restart the patient on high dose of Atorvastatin 80 mg. 5. We will check the lipid profile in the morning. 6. Deep venous thrombosis prophylaxis. The patient is on Lovenox. I spent 75 minutes with this patient.
--- NOTE | 2018-01-27 19:03 | CON ---
DATE OF CONSULTATION: 01/27/2018 HISTORY OF PRESENT ILLNESS: This patient is a pleasant 77-year-old gentleman with a long history of ischemic cardiomyopathy, who presents with chest discomfort. Please see previous H&P for complete details. The patient has previously suffered a myocardial infarction back in 1989, which he received TPA. He has also undergone coronary artery bypass x4 in 2003. He had KOVACS to the LAD, a radial graft to a diagonal and saphenous vein graft to ramus and PDA. The patient has subsequently developed progressive coronary artery disease. He has undergone several cardiac catheterizations, which have revealed progressive coronary artery disease. He also has previously undergone PTCA and stent placement into the LAD. The patient has also had placement of an implantable cardiac fibrillation. The patient has a known ejection of only 20% to 25%. The patient was most recently hospitalized with congestive heart failure. He presented this morning with acute onset of substernal chest discomfort. He states it lasted for about 45 minutes and the pain eventually resolved. He describes the discomfort as left-sided,and not associated with diaphoresis or dyspnea. The patient denies any present chest discomfort. PAST MEDICAL HISTORY: 1. Coronary artery disease. 2. Ischemic cardiomyopathy. 3. History of ventricular tachycardia. 4. History of AICD placement. 5. Hypertension 6. Dyslipidemia. 7. Benign prostatic hypertrophy. 8. History of seizures. 9. COPD. PAST SURGICAL HISTORY: Hernia surgery, vasectomy, coronary bypass graft surgery , appendectomy. MEDICATIONS: See nursing list. ALLERGIES: None. SOCIAL HISTORY: Long history of tobacco abuse. FAMILY HISTORY: Strong family history of heart disease. REVIEW OF SYSTEMS: Ten-point system otherwise unremarkable. No history of easy bruising bright red blood per rectum. PHYSICAL EXAMINATION: GENERAL: Thin gentleman in no acute distress. VITAL SIGNS: Blood pressure of 108/53. His heart rate was 90. NECK: Showed no jugular venous distention. LUNGS: Have a few crackles in the both bases. HEART: Regular rate and rhythm, normal S1, S2, no murmurs. ABDOMEN: Distended. EXTREMITIES: Showed moderate bilateral edema. SKIN: Warm and dry. NEUROLOGIC: Nonfocal. VASCULAR: Radial pulses are 2+. LABORATORY RESULTS: Sodium 137, potassium 3.8, chloride 103, bicarbonate 26, BUN 26, creatinine is 0.98, glucose 141. Troponin was 0.418, BNP was 2796. White blood cell count 6.2, hemoglobin 10.1, hematocrit 31.9, pressure 176. His EKG revealed him to have an electronic ventricular pacemaker. IMPRESSION: 1. Possible non-Q-wave myocardial infarction. 2. History of multiple myocardial infarctions. 3. History of coronary bypass graft surgery. 4. Severe ischemic cardiomyopathy. 5. History of AICD placement. 6. Tobacco abuse. 7. Dyslipidemia. This gentleman presents with a non Q-wave myocardial infarction. The patient being treated with aspirin and Lovenox. We will add Lipitor. We will check the patient's echocardiogram. Further recommendations to follow. MTDD
[2018-01-27] MEDS ORDERED: Atorvastatin Calcium 40 MG TAB PO SCH (21:00)
[2018-01-27] MEDS: Docusate 100 MG CAP PO SCH (21:27)
[2018-01-27] MEDS: Atorvastatin Calcium 40 MG TAB PO SCH (21:27)
[2018-01-27] MEDS: Carvedilol 3.125 MG TAB PO SCH (21:28)
[2018-01-27] MEDS: Potassium Chloride 20 MEQ TAB PO SCH (21:28)
[2018-01-27] MEDS: Tamsulosin HCl 0.4 MG CAP PO SCH (21:28)
[2018-01-27] MEDS: Furosemide 80 MG TAB PO SCH (21:28)
[2018-01-27] MEDS: Lisinopril 5 MG TAB PO SCH (21:29)
[2018-01-27] MEDS: Enoxaparin Sodium 60 MG/0.6 ML SYRINGE SC SCH (21:30)
[2018-01-28 05:31] LABS: #Eosinphils 0.3 thou/uL (0.0-0.7); #Lymphocytes 1.4 thou/uL (1.20-3.40); #Monocytes 0.4 thou/uL (0.11-0.59); #Neutrophils 4.5 thou/uL (1.40-6.50); %Basophils 0.7 % (0.0-1.0); %Eosinophils 5.2 % (0.0-10.0); %Lymphocytes 20.9 % (21.0-51.0); %Monocytes 5.7 % (0.0-10.0); %Neutrophils 67.5 % (42.0-75.0); Hemoglobin 9.4 g/dL (14.0-18.0); Mean Corpuscular HGB CONC 31.7 g/dL (32.0-36.0); Mean Corpuscular Hemoglobin 26.5 pg (27.0-31.0); Mean Corpuscular Volume 83.5 fL (78.0-98.0); Mean Platelet Volume 8.1 fL (7.4-10.4); Platelet Count 174 thou/uL (130-400); RBC Distribution Width 20.5 % (11.5-14.5); Red Blood Cell (RBC) Count 3.56 mill/uL (4.70-6.10); White Blood Cell (WBC) Count 6.6 thou/uL (4.8-10.8)
[2018-01-28 06:00] LABS: Anion Gap 12 mmol/L (10-20); BUN (Urea Nitrogen) 19 mg/dL (8.4-25.7); Calc. Creatinine Clearance 65 mL/min (70-130); Calcium 9.4 mg/dL (7.8-10.44); Carbon Dioxide 22 mmol/L (23-31); Cardiac Risk 3.1 (Less than 4.5); Chloride 107 mmol/L (98-107); Cholesterol 122 mg/dl (< 200 Desired); Estimated GFR-MDRD Greater than 90; Glucose 77 mg/dL (83-110); HDL Cholesterol 40 mg/dL (>60 Neg Risk); LDL Cholesterol, Calculated 69 mg/dL; Potassium 3.8 mmol/L (3.5-5.1); Sodium 137 mmol/L (136-145); Triglycerides 66 mg/dL (Less than 150)
[2018-01-28] MEDS ORDERED: Aspirin 325 mg Enteric Coated Tablet PO SCH (09:00)
[2018-01-28] MEDS: Carvedilol 3.125 MG TAB PO SCH ×2 (09:37→21:13)
[2018-01-28] MEDS: Potassium Chloride 20 MEQ TAB PO SCH ×2 (09:37→21:10)
[2018-01-28] MEDS: Finasteride 5 MG TAB PO SCH (09:37)
[2018-01-28] MEDS: Lisinopril 5 MG TAB PO SCH ×2 (09:37→21:11)
[2018-01-28] MEDS: Furosemide 80 MG TAB PO SCH ×2 (09:37→21:10)
[2018-01-28] MEDS: Aspirin 81 mg Enteric Coated Tablet PO SCH (09:38)
[2018-01-28] MEDS: Enoxaparin Sodium 60 MG/0.6 ML SYRINGE SC SCH ×2 (09:38→21:12)
[2018-01-28] MEDS: Docusate 100 MG CAP PO SCH ×2 (09:39→21:13)
[2018-01-28] MEDS ORDERED: Sodium Chloride 0.9% 1,000 ML IV SCH (15:00)
[2018-01-28] MEDS ORDERED: Communication Order-Pharmacy FS SCH (15:00)
--- NOTE | 2018-01-28 17:01 | PDOC.PN ---
- Subjective Encounter Start Date: 01/28/18 Encounter Start Time: 17:01 Subjective: nsg notes rev, edmundo ovn, no new c/o no current chest discomfort or SOB -: son at bedside - Objective Resuscitation Status: Resuscitation Status FULL:Full Resuscitation Vital Signs & Weight: Vital Signs (12 hours) Temp Pulse Pulse Pulse Resp BP BP 01/28/18 15:44 97.5 F L 67 16 01/28/18 11:26 97.6 F 67 16 01/28/18 10:27 69 66 94/46 L 01/28/18 09:37 69 118/58 L 01/28/18 09:34 01/28/18 09:32 69 01/28/18 08:20 97.5 F L 69 16 01/28/18 07:55 97.5 F L 69 16 BP BP BP Pulse Ox 01/28/18 15:44 103/51 L 100 01/28/18 11:26 98/56 L 01/28/18 10:27 100/43 L 01/28/18 09:37 01/28/18 09:34 118/58 L 01/28/18 09:32 99/55 L 01/28/18 08:20 01/28/18 07:55 115/58 L Weight Admit Weight 126 lb 4.8 oz Weight 126 lb 4.8 oz I&O: 01/27/18 01/28/18 01/29/18 06:59 06:59 06:59 Intake Total 1050 Output Total 1125 Balance -75 Result Diagrams: 01/28/18 04:38 01/28/18 04:38 Phys Exam - Physical Examination Constitutional: NAD HEENT: PERRLA, moist MMs, sclera anicteric Respiratory: no wheezing, no rales, no rhonchi, clear to auscultation bilateral Cardiovascular: RRR, no significant murmur, no rub soft heart tones, sig bruising over ant chest wall and over PPM Gastrointestinal: soft, non-tender, no distention, positive bowel sounds Musculoskeletal: pulses present 1+ b/l LE pitting pedal edema Neurological: moves all 4 limbs Psychiatric: normal affect, A&O x 3 Dx/Plan - Plan cont current plan of care * NSTEMI in setting of extensive personal hx of CAD * apprec cardiology c/s * plan for LHC in AM * continue curr regimen HTN stable HLD stable diet: cardiac activity: as nacho dvt ppx maintain on tele Review of Systems - Medications/Allergies Allergies/Adverse Reactions: Allergies Allergy/AdvReac Type Severity Reaction Status Date / Time No Known Allergies Allergy Verified 01/27/18 03:55 Medications: Current Medications Hydrocodone Bitart/Acetaminophen ([place] 5/325) 1 tab PO Q4H PRN PRN Reason: Moderate Pain (4-6) Last Admin: 01/28/18 11:30 Dose: 1 tab Hydrocodone Bitart/Acetaminophen ([place] 7.5/325) 1 tab PO Q4H PRN PRN Reason: Moderate Pain (4-6) Aspirin (Ecotrin) 81 mg PO DAILY [facility] Last Admin: 01/28/18 09:38 Dose: 81 mg Atorvastatin Calcium (Lipitor) 80 mg PO HS [facility] Last Admin: 01/27/18 21:27 Dose: 80 mg Carvedilol (Coreg) 3.125 mg PO BID [facility] Last Admin: 01/28/18 09:37 Dose: 3.125 mg Docusate Sodium (Colace) 100 mg PO BID [facility] Last Admin: 01/28/18 09:39 Dose: Not Given Enoxaparin Sodium (Lovenox) 60 mg SC 0900,2100 [facility] Stop: 01/28/18 23:59 Last Admin: 01/28/18 09:38 Dose: 60 mg Finasteride (Proscar) 5 mg PO DAILY [facility] Last Admin: 01/28/18 09:37 Dose: 5 mg Furosemide (Lasix) 80 mg PO BID [facility] Last Admin: 01/28/18 09:37 Dose: 80 mg Sodium Chloride (Normal Saline 0.9%) 1,000 mls @ 75 mls/hr IV .[id number] [facility] Isosorbide Mononitrate (Imdur) 60 mg PO DAILY [facility] Last Admin: 01/28/18 09:37 Dose: 60 mg Lisinopril (Zestril) 2.5 mg PO BID [facility] Last Admin: 01/28/18 09:37 Dose: 2.5 mg Miscellaneous Information (Communication Order-Pharmacy) 0 each FS ONE [facility] Stop: 01/28/18 23:59 Nitroglycerin (Nitrostat) 0.4 mg PO Q5MIN PRN PRN Reason: Chest Pain Potassium Chloride (K-Dur) 20 meq PO BID [facility] Last Admin: 01/28/18 09:37 Dose: 20 meq Sodium Chloride (Flush - Normal Saline) 10 ml IVF Q12HR [facility] Last Admin: 01/28/18 09:46 Dose: 10 ml Sodium Chloride (Flush - Normal Saline) 10 ml IVF PRN PRN PRN Reason: Saline Flush Tamsulosin HCl (Flomax) 0.4 mg PO HS [facility] Last Admin: 01/27/18 21:28 Dose: 0.4 mg
[2018-01-28] MEDS: Atorvastatin Calcium 40 MG TAB PO SCH (21:10)
[2018-01-28] MEDS: Tamsulosin HCl 0.4 MG CAP PO SCH (21:10)
[2018-01-29] MEDS: Furosemide 80 MG TAB PO SCH ×2 (05:44→20:24)
[2018-01-29] MEDS: Potassium Chloride 20 MEQ TAB PO SCH ×2 (05:44→20:22)
[2018-01-29] MEDS: Aspirin 81 mg Enteric Coated Tablet PO SCH (05:45)
[2018-01-29] MEDS: Carvedilol 3.125 MG TAB PO SCH ×2 (05:45→20:22)
[2018-01-29] MEDS: Lisinopril 5 MG TAB PO SCH ×2 (05:45→20:22)
[2018-01-29] MEDS: Finasteride 5 MG TAB PO SCH (05:46)
[2018-01-29] MEDS: Docusate 100 MG CAP PO SCH ×2 (05:47→20:24)
[2018-01-29] MEDS ORDERED: Sodium Chloride 0.9% 1,000 ML IV SCH ×2 (06:00→09:15)
[2018-01-29] MEDS ORDERED: Lidocaine 1% (PF) 30 ML VIAL ONE ×2 (06:39→07:37)
[2018-01-29] MEDS ORDERED: Heparin 10,000 UNITS/1 ML VIAL ONE (06:42)
[2018-01-29] MEDS ORDERED: Fentanyl 100 MCG/2 ML VIAL ONE (07:18)
[2018-01-29] MEDS ORDERED: Midazolam HCl 2 mg/2 ml Vial ONE (07:19)
[2018-01-29] MEDS ORDERED: Bivalirudin 250 MG VIAL ONE (08:00)
[2018-01-29] MEDS ORDERED: Clopidogrel Bisulfate 300 MG TAB ONE (08:37)
[2018-01-29] MEDS ORDERED: Milk Of Magnesia 30 ML UDCUP PO PRN (09:09)
[2018-01-29] MEDS ORDERED: Mag-Al 1200 mg/1200 mg/30 ML UDCUP PO PRN (09:09)
[2018-01-29] MEDS ORDERED: HYDROcodone/Acetaminophen 5/325 mg Tablet ONE ×2 (09:44→14:04)
--- NOTE | 2018-01-29 10:06 | CCL ---
CARDIAC CATHETERIZATION REPORT: Date: 01/29/18 INDICATION: NSTEMI. PROCEDURE: Selective coronary arteriography, bypass graft angiography, KOVACS injection, and stent placement in the proximal LAD in-stent restenosis. DETAILS: Patient was brought to cardiac veterinary laboratory technician and both groins were prepped and draped. 1% lidocaine was infiltrated to the right groin. There was difficulty in advancing the J wire as well as a Wholey wire, and then attention was turned to the left groin. This was anesthetized with 1% lidocaine. The patient was given Versed 1 mg, fentanyl 25 mg, and fentanyl 25 mg was repeated later in the case. A 6 Norwegian sheath placed into the left femoral artery. A 6 Norwegian left-4 followed by 6 Norwegian Christiano right-4 was used for coronary arteriography. The right-4 was also used to opacify the bypass grafts and the KOVACS to the LAD. The right-4 was then exchanged over wire for a 6 [place] Christiano left-4 guide. A floppy Choice wire was advanced into the LAD. The area was predilated with Emerge 2.5 x 15 mm balloon. Synergy 2.5 x 24 mm stent was then positioned and deployed, with excellent results. During the procedure, the patient received Angiomax, as well as Plavix 600 mg p.o.. Sheaths were sutured in place and the patient was transferred to the PCU. RESULTS: CORONARY ARTERIOGRAPHY: 1. The left main had a 50% stenosis. 2. The LAD had a 99% proximal LAD in-stent restenosis. The LAD was then totally occluded proximally. 3. The circumflex was totally occluded proximally, which was new. 4. The ramus was totally occluded proximally, which was new. 5. The right coronary artery had severe diffuse disease, approximately 95% in its mid portion. The distal vessel filled retrograde from the KOVACS to the LAD. This was similar to previous cath. BYPASS GRAFTS: 1. The KOVACS to the LAD was patent. There was severe 60-70% diffuse disease distal to the graft. 2. The saphenous vein graft to the left posterior descending was patent. 3. The saphenous vein graft to the ramus was patent. There was a stent just distal to the graft insertion, which was totally occluded, which was new. 4. The left radial artery to the diagonal was patent (piggybacked onto the ramus graft). INTERVENTION: The initial proximal LAD lesion was 99%; final lesion was 0%. IMPRESSION: 1. Left main plus three vessel coronary artery disease. 2. Four of four grafts patent. 3. Severe progression of distal disease. 4. Successful drug-eluting stent placement in the LAD in-stent restenosis. MTDD
[2018-01-29] MEDS ORDERED: Iopamidol 370 76% 50 ML VIAL FS ONE (13:03)
[2018-01-29] MEDS ORDERED: Iopamidol 370 76% 100 ML VIAL ONE (13:03)
[2018-01-29] MEDS: Atorvastatin Calcium 40 MG TAB PO SCH (20:21)
[2018-01-29] MEDS: Tamsulosin HCl 0.4 MG CAP PO SCH (20:23)
--- NOTE | 2018-01-29 23:43 | PDOC.PN ---
- Subjective Encounter Start Date: 01/29/18 Encounter Start Time: 19:00 Subjective: nsg notes rev, edmundo ovn - Objective Resuscitation Status: Resuscitation Status FULL:Full Resuscitation Vital Signs & Weight: Vital Signs (12 hours) Temp Pulse Resp BP BP Pulse Ox 01/29/18 23:34 97.5 F L 69 16 107/52 L 95 01/29/18 20:22 70 01/29/18 20:00 97.6 F 70 18 107/51 L 99 01/29/18 16:45 97.6 F 69 17 105/53 L 97 01/29/18 14:35 97.6 F 68 17 106/53 L 97 Weight Admit Weight 126 lb 4.8 oz Weight 126 lb 4.8 oz I&O: 01/28/18 01/29/18 01/30/18 06:59 06:59 06:59 Intake Total 1050 920 940 Output Total 1125 1800 1300 Balance -75 -880 -360 Result Diagrams: 01/30/18 05:05 01/30/18 05:05 Dx/Plan - Plan * NSTEMI in setting of extensive personal hx of CAD * apprec cardiology c/s * s/p LHC * continue curr regimen HTN stable HLD stable diet: cardiac activity: as nacho dvt ppx maintain on tele Review of Systems - Medications/Allergies Allergies/Adverse Reactions: Allergies Allergy/AdvReac Type Severity Reaction Status Date / Time No Known Allergies Allergy Verified 01/27/18 03:55 Medications: Current Medications Hydrocodone Bitart/Acetaminophen ([place] 5/325) 1 tab PO Q4H PRN PRN Reason: Moderate Pain (4-6) Last Admin: 01/28/18 11:30 Dose: 1 tab Hydrocodone Bitart/Acetaminophen ([place] 7.5/325) 1 tab PO Q4H PRN PRN Reason: Moderate Pain (4-6) Al Hydroxide/Mg Hydroxide (Maalox) 30 ml PO Q3H PRN PRN Reason: Indigestion Aspirin (Aspirin Chewable) 81 mg PO DAILY [facility] Atorvastatin Calcium (Lipitor) 80 mg PO HS [facility] Last Admin: 01/29/18 20:21 Dose: 80 mg Carvedilol (Coreg) 3.125 mg PO BID [facility] Last Admin: 01/29/18 20:22 Dose: 3.125 mg Clopidogrel Bisulfate (Plavix) 75 mg PO DAILY [facility] Docusate Sodium (Colace) 100 mg PO BID [facility] Last Admin: 01/29/18 20:24 Dose: Not Given Finasteride (Proscar) 5 mg PO DAILY [facility] Last Admin: 01/29/18 05:46 Dose: 5 mg Furosemide (Lasix) 80 mg PO BID [facility] Last Admin: 01/29/18 20:24 Dose: 80 mg Isosorbide Mononitrate (Imdur) 60 mg PO DAILY [facility] Last Admin: 01/29/18 05:45 Dose: 60 mg Lisinopril (Zestril) 2.5 mg PO BID [facility] Last Admin: 01/29/18 20:22 Dose: 2.5 mg Magnesium Hydroxide (Milk Of Magnesium) 30 ml PO Q12H PRN PRN Reason: Constipation Nitroglycerin (Nitrostat) 0.4 mg PO Q5MIN PRN PRN Reason: Chest Pain Potassium Chloride (K-Dur) 20 meq PO BID [facility] Last Admin: 01/29/18 20:22 Dose: 20 meq Ranolazine (Ranexa) 500 mg PO BID [facility] Last Admin: 01/29/18 20:21 Dose: 500 mg Sodium Chloride (Flush - Normal Saline) 10 ml IVF Q12HR [facility] Last Admin: 01/29/18 20:24 Dose: 10 ml Sodium Chloride (Flush - Normal Saline) 10 ml IVF PRN PRN PRN Reason: Saline Flush Tamsulosin HCl (Flomax) 0.4 mg PO HS [facility] Last Admin: 01/29/18 20:23 Dose: 0.4 mg
[2018-01-30 05:47] LABS: #Eosinphils 0.2 thou/uL (0.0-0.7); #Lymphocytes 0.8 thou/uL (1.20-3.40); #Monocytes 0.3 thou/uL (0.11-0.59); #Neutrophils 3.5 thou/uL (1.40-6.50); %Basophils 0.9 % (0.0-1.0); %Eosinophils 4.1 % (0.0-10.0); %Lymphocytes 17.1 % (21.0-51.0); %Monocytes 6.9 % (0.0-10.0); Hemoglobin 9.2 g/dL (14.0-18.0); Mean Corpuscular HGB CONC 32.2 g/dL (32.0-36.0); Mean Corpuscular Volume 83.9 fL (78.0-98.0); Mean Platelet Volume 8.2 fL (7.4-10.4); Platelet Count 154 thou/uL (130-400); RBC Distribution Width 20.4 % (11.5-14.5); Red Blood Cell (RBC) Count 3.39 mill/uL (4.70-6.10); White Blood Cell (WBC) Count 4.9 thou/uL (4.8-10.8)
[2018-01-30 06:02] LABS: ALT (SGPT) 17 U/L (8-55); AST (SGOT) 18 U/L (5-34); Albumin 3.4 g/dL (3.4-4.8); Alkaline Phosphatase 125 U/L (40-150); Anion Gap 12 mmol/L (10-20); BUN (Urea Nitrogen) 17 mg/dL (8.4-25.7); Bilirubin, Total 2.1 mg/dL (0.2-1.2); Calc. Creatinine Clearance 60 mL/min (70-130); Calcium 9.3 mg/dL (7.8-10.44); Carbon Dioxide 24 mmol/L (23-31); Chloride 104 mmol/L (98-107); Estimated GFR-MDRD Greater than 90; Globulin 2.7 g/dL (2.4-3.5); Glucose 74 mg/dL (83-110); Potassium 3.9 mmol/L (3.5-5.1); Protein, Total 6.1 g/dL (5.8-8.1); Sodium 136 mmol/L (136-145)
[2018-01-30] MEDS: Lisinopril 5 MG TAB PO SCH ×2 (10:00→10:09)
[2018-01-30] MEDS: Furosemide 80 MG TAB PO SCH ×3 (10:00→22:22)
[2018-01-30] MEDS: Docusate 100 MG CAP PO SCH ×2 (10:08→22:37)
[2018-01-30] MEDS: Finasteride 5 MG TAB PO SCH (10:08)
[2018-01-30] MEDS: Carvedilol 3.125 MG TAB PO SCH ×2 (10:08→12:43)
[2018-01-30] MEDS: Potassium Chloride 20 MEQ TAB PO SCH ×2 (10:09→22:21)
[2018-01-30] MEDS: Clopidogrel Bisulfate 75 MG TAB PO SCH (10:10)
--- NOTE | 2018-01-30 17:07 | EKG ---
Test Reason : Blood Pressure : / mmHG Vent. Rate : 069 BPM Atrial Rate : 069 BPM P-R Int : 150 ms QRS Dur : 164 ms QT Int : 492 ms P-R-T Axes : 068 -62 085 degrees QTc Int : 527 ms Atrial-sensed ventricular-paced rhythm Biventricular pacemaker detected Abnormal ECG When compared with ECG of 29-JAN-2018 10:14, No significant change was found Confirmed by DR. Ras ROJAS ([id number]) on 01/30/2018 5:06:49 PM Referred By: KANU Confirmed By:DR. Ras ROJAS
--- NOTE | 2018-01-30 21:11 | PDOC.PN ---
- Subjective Encounter Start Date: 01/30/18 Encounter Start Time: 20:45 Subjective: f/u for NSTEMI s/p LHC with LILY placement in proximal LAD, 4 bypass -: grafts patent. Feels fine without CP or SOB. - Objective Resuscitation Status: Resuscitation Status FULL:Full Resuscitation MAR Reviewed: Yes Vital Signs & Weight: Vital Signs (12 hours) Temp Pulse Pulse Pulse BP BP BP 01/30/18 18:35 64 97/49 L 01/30/18 12:28 97.8 F 73 93/54 L 01/30/18 10:11 61 83/44 L 01/30/18 09:23 67 67 82/46 L 98/32 L Weight Admit Weight 126 lb 4.8 oz Weight 126 lb 4.8 oz I&O: 01/29/18 01/30/18 01/31/18 06:59 06:59 06:59 Intake Total 920 940 Output Total 1800 1700 Balance -880 -760 Result Diagrams: 01/30/18 05:05 01/30/18 05:05 Additional Labs: Microbiology 01/26/18 22:54 Urine david catheter Urine Culture - Final NO GROWTH AT 36 HOURS Laboratory Tests 12/21/17 12/21/17 12/21/17 23:30 23:30 23:30 Hgb 11.4 L Hct 35.3 L Creatinine 1.78 H Troponin I B-Natriuretic Peptide 6342.0 H Triglycerides Cholesterol LDL Cholesterol, Calc HDL Cholesterol 12/21/17 12/22/17 12/22/17 23:30 02:16 05:21 Hgb Hct Creatinine Troponin I 0.082 H 0.084 H 0.070 H B-Natriuretic Peptide Triglycerides Cholesterol LDL Cholesterol, Calc HDL Cholesterol 12/22/17 12/23/17 12/23/17 05:21 04:08 04:08 Hgb Hct Creatinine Troponin I 0.070 H B-Natriuretic Peptide 4412.9 H 6174.1 H Triglycerides Cholesterol LDL Cholesterol, Calc HDL Cholesterol 01/13/18 01/26/18 01/26/18 03:49 23:00 23:00 Hgb Hct Creatinine Troponin I 0.414 H* B-Natriuretic Peptide 6964.4 H 2796.9 H Triglycerides Cholesterol LDL Cholesterol, Calc HDL Cholesterol 01/27/18 01/27/18 01/27/18 01:55 04:24 12:44 Hgb Hct Creatinine Troponin I 0.369 H* 0.418 H* 0.570 H* B-Natriuretic Peptide Triglycerides Cholesterol LDL Cholesterol, Calc HDL Cholesterol 01/28/18 04:38 Hgb Hct Creatinine Troponin I B-Natriuretic Peptide Triglycerides 66 Cholesterol 122 LDL Cholesterol, Calc 69 HDL Cholesterol 40 EKG Reviewed by me: Yes (Tele - A-paced in 60's) Phys Exam - Physical Examination Constitutional: NAD HEENT: PERRLA, sclera anicteric, oral pharynx no lesions Neck: no nodes, no JVD, supple, full ROM occasional coarse sounds bilat Respiratory: no rales, no rhonchi S1, S2 Cardiovascular: RRR, no significant murmur, no rub, gallop Gastrointestinal: soft, non-tender, no distention, positive bowel sounds Musculoskeletal: no edema, pulses present Neurological: normal sensation, moves all 4 limbs Psychiatric: normal affect, A&O x 3 Skin: no rash, normal turgor, cap refill <2 seconds Deviation from normal: David cath with elizabeth urine Dx/Plan (1) NSTEMI (non-ST elevated myocardial infarction) Code(s): I21.4 - NON-ST ELEVATION (NSTEMI) MYOCARDIAL INFARCTION Status: Acute Comment: s/p LILY placement to LAD, continue ASA, Lipitor, Plavix (2) CAD (coronary artery disease) Code(s): I25.10 - ATHSCL HEART DISEASE OF [place] CORONARY ARTERY W/O ANG PCTRS Status: Chronic Qualifiers: Coronary Disease-Associated Artery/Lesion type: [place] artery [place] vs. transplanted heart: [place] heart Associated angina: with stable angina Qualified Code(s): I25.118 - Atherosclerotic heart disease of [place] coronary artery with other forms of angina pectoris Comment: Continue ASA, Plavix, Lipitor. 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
[2018-01-30] MEDS: Atorvastatin Calcium 40 MG TAB PO SCH (22:20)
[2018-01-30] MEDS: Tamsulosin HCl 0.4 MG CAP PO SCH (22:21)
[2018-01-31 08:13] VITALS: TEMP 98.1
[2018-01-31] MEDS ORDERED: Lisinopril 2.5 MG TAB PO SCH (09:00)
[2018-01-31] MEDS: Docusate 100 MG CAP PO SCH (09:58)
[2018-01-31] MEDS: Potassium Chloride 20 MEQ TAB PO SCH (09:58)
[2018-01-31] MEDS: Finasteride 5 MG TAB PO SCH (09:58)
[2018-01-31] MEDS: Clopidogrel Bisulfate 75 MG TAB PO SCH (09:59)
[2018-01-31] MEDS: Carvedilol 3.125 MG TAB PO SCH ×2 (09:59)
[2018-01-31 10:46] VITALS: BP 110/56
--- NOTE | 2018-01-31 20:04 | DIS ---
DATE OF ADMISSION: 01/27/2018 DATE OF DISCHARGE: 01/31/2018 DISCHARGE DIAGNOSES: 1. Non-ST elevation myocardial infarction. 2. Status post drug-eluting stent placement to the left anterior descending. 3. Severe coronary artery disease with progression of distal disease. 4. Ischemic cardiomyopathy with ejection fraction of 20%-25%. 5. Hypertension. 6. Tobacco abuse. 7. Status post biventricular ICD upgrade 12/2017. 8. Dyslipidemia. CONSULTATIONS: Dr. Cheng and Dr. Ball with Cardiology Service. PERTINENT LABORATORY DATA AND X-RAY FINDINGS: Troponin I ranged between 0.369-0.570, lipase 56, BNP 2797, previously noted 6964 on 01/13/2018. CBC showed a hemoglobin ranging between 9.2-10.1. Urine culture dated 01/26/2018 showed no growth at 36 hours. Portable chest x-ray dated 01/26/2018 showed improvement of pulmonary edema when compared with prior imaging. Left heart catheterization dated showed left main disease plus 3-vessel coronary artery disease with four grafts patent. Sta tus post percutaneous coronary intervention with drug-eluting stent placement of the proximal left an terior descending artery with in-stent restenosis. Severe distal disease noted. Please see dictated report for full details. A 2D transthoracic echocardiogram dated 01/28/2018 showed a technically li mited exam. Ejection fraction of 20%-25%. Severe dilation of the left atrium. Severe mitral valve regurgitation. Moderate aortic regurgitation. Severe tricuspid valve regurgitation. HOSPITAL COURSE: Patient was admitted to the telemetry unit after presenting with recurrent chest pa in in the context of known severe coronary artery disease with non-ST elevation myocardial infarction . The patient was evaluated by the Cardiology Service and recommended for repeat cardiac catheteriza tion. Patient underwent left heart catheterization showing findings as stated previously, undergoing a successful percutaneous coronary intervention with drug-eluting stent placement to the proximal LA D. The patient was given additional Plavix and Ranexa in addition to aspirin therapy. The patient r emained clinically stable postoperatively with telemetry monitoring showing ventricular paced rhythm with heart rates in the 70s. The patient was noted with short run of atrial tachycardia, resolving s pontaneously. I have examined at the time of discharge and discussed followup instructions at which point patient and family verbalized understanding and agreement. The patient overall clinically stab le and ready for discharge on 01/31/2018. DISCHARGE MEDICATIONS: 1. Enteric coated aspirin 81 mg 1 tab p.o. daily. 2. Plavix 75 mg 1 tab p.o. daily. 3. Lipitor 80 mg p.o. at bedtime. 4. Coreg 3.125 mg p.o. b.i.d. 5. Proscar 5 mg p.o. daily. 6. Lasix 80 mg p.o. daily. 7. Isosorbide mononitrate 60 mg p.o. daily. 8. Lisinopril 2.5 mg p.o. daily. 9. K-Dur 20 mEq p.o. b.i.d. 10. Ranexa 500 mg p.o. b.i.d. x1 week, followed by 1000 mg p.o. b.i.d. 11. Flomax 0.4 mg p.o. at bedtime. FOLLOWUP: The patient will follow up with Dr. Lowery with [facility] within 1 week. The patient will follow up with [facility], Cardiology Service on 02/05/2018. The patient will follow up with [facility]. CONDITION ON DISCHARGE: Guarded. ACTIVITY: Ad billy. DIET: Heart healthy. CODE STATUS: FULL. DISPOSITION: Home 01/31/2018. Total time in preparing and coordinating discharge is 34 minutes.
[2018-02-01] MEDS ORDERED: Furosemide 80 MG TAB PO SCH (07:30)
== END 2018-01-31 13:10 | disposition home or self-care (01) | DRG 246 ==
LOC: ERS 22:18 → 2NO 01-27 01:44
PROVIDERS: ADMIT Internal Medicine; ATTEND Internal Medicine
PROC: 027034Z Dilation of Coronary Artery, One Artery with Drug-eluting Intraluminal Device, Percutaneous Approach (ICD-10-PCS; principal; 2018-01-29)
PROC: 4A023N7 Measurement of Cardiac Sampling and Pressure, Left Heart, Percutaneous Approach (ICD-10-PCS; 2018-01-29)
PROC: B211YZZ Fluoroscopy of Multiple Coronary Arteries using Other Contrast (ICD-10-PCS; 2018-01-29)
PROC: B213YZZ Fluoroscopy of Multiple Coronary Artery Bypass Grafts using Other Contrast (ICD-10-PCS; 2018-01-29)
DX: I21.4 Non-ST elevation (NSTEMI) myocardial infarction (principal); I50.33 Acute on chronic diastolic (congestive) heart failure; T82.855A Stenosis of coronary artery stent, initial encounter; I25.10 Atherosclerotic heart disease of native coronary artery without angina pectoris; I11.0 Hypertensive heart disease with heart failure; I25.5 Ischemic cardiomyopathy; Z95.810 Presence of automatic (implantable) cardiac defibrillator; E78.5 Hyperlipidemia, unspecified; I08.3 Combined rheumatic disorders of mitral, aortic and tricuspid valves; Z82.49 Family history of ischemic heart disease and other diseases of the circulatory system; Y83.8 Other surgical procedures as the cause of abnormal reaction of the patient, or of later complication, without mention of misadventure at the time of the procedure; Y92.9 Unspecified place or not applicable
CPT/HCPCS: 36415; 71045; 80048; 80053; 80061; 81003; 81015; 82550; 82553; 83690; 83880; 84484; 85025; 85347; 87086; 92928; 93005; 93010; 93306; 93455; 93798; 94760; 96360; 96361; 96372; 99152; 99153; A4216; C1725; C1769; C1874; C1887; C9600; J0583; J1644; J1650; J2001; J2250; J3010

== ENCOUNTER 2019-04-03 20:06 | Inpatient (IN) | payer MEDICARE, OTHER, SELFPAY ==
--- NOTE | 2019-04-03 20:30 | RAD ---
EXAM: Single view of the chest HISTORY: Chest pain COMPARISON: 01/26/2018 FINDINGS: Single view of the chest shows an enlarged but stable cardiomediastinal silhouette. The pa tient is status post sternotomy. The pacemaker is unchanged in position. There is no evidence of consolidation, mass, or pleural effusion. The bones are unremarkable. IMPRESSION: Cardiomegaly without evidence of acute cardiopulmonary disease
[2019-04-03 20:35] LABS: #Basophils 0.1 thou/uL (0.0-0.2); #Eosinphils 0.2 thou/uL (0.0-0.7); #Lymphocytes 1.2 thou/uL (1.20-3.40); #Monocytes 0.4 thou/uL (0.11-0.59); #Neutrophils 4.4 thou/uL (1.40-6.50); %Eosinophils 2.8 % (0.0-10.0); %Lymphocytes 18.8 % (21.0-51.0); %Monocytes 6.2 % (0.0-10.0); %Neutrophils 71.3 % (42.0-75.0); Mean Corpuscular HGB CONC 32.8 g/dL (32.0-36.0); Mean Corpuscular Hemoglobin 29.3 pg (27.0-31.0); Mean Corpuscular Volume 89.3 fL (78.0-98.0); Platelet Count 167 thou/uL (130-400); RBC Distribution Width 15.5 % (11.5-14.5); Red Blood Cell (RBC) Count 4.78 mill/uL (4.70-6.10); White Blood Cell (WBC) Count 6.1 thou/uL (4.8-10.8)
[2019-04-03 21:08] LABS: ALT (SGPT) 17 U/L (8-55); AST (SGOT) 18 U/L (5-34); Albumin 3.9 g/dL (3.4-4.8); Alkaline Phosphatase 113 U/L (40-150); Anion Gap 13 mmol/L (10-20); BUN (Urea Nitrogen) 20 mg/dL (8.4-25.7); Bilirubin, Total 0.8 mg/dL (0.2-1.2); Calc. Creatinine Clearance 0 mL/min (70-130); Calcium 9.2 mg/dL (7.8-10.44); Carbon Dioxide 20 mmol/L (23-31); Chloride 110 mmol/L (98-107); Estimated GFR-MDRD 64; Globulin 2.8 g/dL (2.4-3.5); Glucose 124 mg/dL (83-110); Lipase 17 U/L (8-78); Potassium 3.9 mmol/L (3.5-5.1); Protein, Total 6.7 g/dL (5.8-8.1); Sodium 139 mmol/L (136-145)
[2019-04-03 21:24] LABS: Bacteria/HPF 3+ HPF (None Seen); Bilirubin Negative (Negative); Blood, Urine Negative (Negative); Clarity Clear (Clear); Glucose, Urine (Dipstick) Normal (Negative); Leukocyte 75 Leu/uL (Negative); Mucous/LPF Rare LPF (<2+); Nitrite 1+ (Negative); Protein, Urine (Dipstick) Negative (Neg-Trace); RBC/HPF 0-3 HPF (0-3); Squamous Epithelial None Seen HPF (0-3); Urobilinogen Normal mg/dL (Less than 2); WBC/HPF 21-50 HPF (0-3)
[2019-04-03] MEDS ORDERED: Furosemide 20 MG/2 ML VIAL ONE (21:38)
[2019-04-03] MEDS ORDERED: Sodium Chloride 0.9% 100 ML ONE (21:38)
[2019-04-03] MEDS ORDERED: cefTRIAXone\\ROCEPHIN 1 GM VIAL ONE (21:38)
[2019-04-03] MEDS ORDERED: Furosemide 40 MG/4 ML VIAL ONE (21:38)
[2019-04-03] MEDS ORDERED: Enoxaparin Sodium 100 MG/ML SYRINGE ONE (22:03)
[2019-04-04 00:27] LABS: Troponin I 0.192 ng/mL (< 0.028)
[2019-04-04 02:50] LABS: Troponin I 0.189 ng/mL (< 0.028)
[2019-04-04 05:42] VITALS: BMI 24.0
[2019-04-04] MEDS ORDERED: Furosemide 40 MG/4 ML VIAL SLOW IVP SCH (06:00)
[2019-04-04] MEDS ORDERED: Nitroglycerin 0.4 MG TAB (25 Tab Bottle) SL PRN (13:05)
[2019-04-04] MEDS ORDERED: Acetaminophen 325 MG TAB PO PRN (13:27)
[2019-04-04] MEDS ORDERED: Acetaminophen 650 MG Suppository PR PRN (13:27)
[2019-04-04] MEDS ORDERED: Carvedilol 3.125 MG TAB PO SCH (13:30)
[2019-04-04] MEDS ORDERED: Lisinopril 2.5 MG TAB PO SCH (13:30)
[2019-04-04] MEDS ORDERED: Clopidogrel Bisulfate 75 MG TAB PO SCH (13:30)
[2019-04-04] MEDS ORDERED: Aspirin 81 mg Enteric Coated Tablet PO SCH (13:30)
[2019-04-04] MEDS: Furosemide 40 MG/4 ML VIAL SLOW IVP SCH (14:00)
--- NOTE | 2019-04-04 14:47 | HP ---
PRIMARY CARE PROVIDER: Dr. Elton Lowery. CHIEF COMPLAINT: Shortness of breath. HISTORY OF PRESENT ILLNESS: Mr. Huff is a pleasant 78-year-old gentleman, who was seen at [facility] on April 04, 2019. He reports that he has been having shortness of breath on and off for the last 1 month. He has shortness of breath on exertion. He also endorses orthopnea. He denies any lower extremity edema or weight gain. He denies paroxysmal nocturnal dyspnea. He denies fevers or chills. He denies chest pain. He denies any urinary symptoms. REVIEW OF SYSTEMS: All systems were reviewed and found to be negative except for the pertinent positives mentioned above. PAST MEDICAL HISTORY: 1. Chronic obstructive pulmonary disease. 2. Congestive heart failure. 3. Myocardial infarction. 4. Dyslipidemia. 5. Hypertension. 6. Generalized seizures. PAST SURGICAL HISTORY: 1. Tonsillectomy. 2. Coronary artery bypass graft surgery. 3. Hernia repair. 4. Pacemaker placement. 5. Right testicle removal. SOCIAL HISTORY: The patient reports rare alcohol use. He smokes half a pack of cigarettes a day. He denies any recreational drug use. FAMILY HISTORY: He denies any family history of coronary artery disease. ALLERGIES: NO KNOWN DRUG ALLERGIES. CURRENT MEDICATIONS: 1. Lipitor 80 mg at bedtime. 2. Lasix 40 mg 2 times a day. 3. Nitroglycerin p.r.n. 4. Potassium chloride 20 mEq 2 times a day. 5. Aspirin 81 mg daily. 6. Coreg 3.125 mg 2 times a day. 7. Plavix 75 mg daily. 8. Imdur 60 mg daily. 9. Lisinopril 2.5 mg daily. 10. Flomax 0.4 mg at bedtime. PHYSICAL EXAMINATION: GENERAL: On examination, Mr. Huff is awake and alert, not in acute distress. VITAL SIGNS: Blood pressure is 114/58, pulse 60, respiratory rate 20, and oxygen saturation 92% on room air. He is afebrile. EYES: No scleral icterus, no conjunctival pallor. ENT: Moist mucosal membranes, no oropharyngeal erythema or exudates. NECK: Supple, nontender, jugular venous distention present. RESPIRATORY: Accessory muscles of breathing are not active. Chest wall movements are symmetric bilaterally. Lung examination reveals bibasilar crackles. CARDIOVASCULAR: S1 and S2 are heard, regular. Peripheral pulses palpable. No carotid bruit. No pericardial rub. ABDOMEN: Soft, nontender, bowel sounds are heard, no hepatomegaly, no splenomegaly. NEUROLOGIC: Cranial nerves 2 through 12 intact, deep tendon reflexes 2+. MUSCULOSKELETAL: Power is 5/5 in all 4 extremities. SKIN: No rashes or subcutaneous nodules. LYMPHATIC: No cervical lymphadenopathy. PSYCHIATRIC: Normal mood, normal affect, the patient is oriented to person, place, and time. LABORATORY DATA: Mr. Huff's labs and investigations were reviewed. I reviewed his electrocardiogram, which shows AV electronic paced rhythm. I also reviewed his chest x-ray, which showed cardiomegaly, no pleural effusion. He has normal white count, normal hemoglobin, normal platelet count, normal sodium, normal potassium, decreased carbon dioxide of 20, normal creatinine, estimated GFR 64, normal LFTs, and indeterminate troponin I of 0.189. BNP is elevated at 2736. Urinalysis is positive for nitrite and bacteria. ASSESSMENT AND PLAN: Mr. Huff is a pleasant 78-year-old gentleman, who was seen at [facility] on April 04, 2019. His problem list includes: 1. Congestive heart failure exacerbation: Mr. Huff is presenting with acute on chronic systolic congestive heart failure, ACC/AHA class C, NYHA class III. He will be admitted to the hospital for further management. We will check 2D echocardiogram. We will start him on intravenous diuretics. We will consult Cardiology Service for opinion and help with management. 2. Urinary tract infection: The patient has received a dose of ceftriaxone in the emergency room, which I will continue. We will follow urine cultures. 3. Coronary artery disease: The patient has indeterminate troponins. However, he denies any chest pain. We will continue to monitor. 4. Chronic obstructive pulmonary disease: Appears to be stable. 5. Dyslipidemia: Continue statin. 6. Hypertension: Resume home medications, monitor vital signs, and titrate antihypertensives as needed. 7. Benign prostate hypertrophy: Stable, continue Flomax. Many thanks for allowing me to participate in your patient's care. Please feel free to contact me with any questions or concerns. LEVEL OF RISK: High. LEVEL OF COMPLEXITY: High. Job ID: [id number]
[2019-04-04] MEDS: Potassium Chloride 20 MEQ TAB PO SCH (17:25)
[2019-04-04] MEDS: Carvedilol 3.125 MG TAB PO SCH (17:26)
--- NOTE | 2019-04-04 17:44 | CON ---
DATE OF CONSULTATION: 04/04/2019 PRIMARY COMPLIANCE ASSOCIATE: Shekhar Cheng MD REASON FOR CONSULTATION: Congestive heart failure. HISTORY OF PRESENT ILLNESS: Mr. Jacob Huff is a very pleasant 78-year-old gentleman with history of coronary artery disease and congestive heart failure. He came to the hospital with progressive difficulty breathing. The patient states he does not recall having any chest pain or pressure, just had trouble breathing. He has received diuretics. His breathing is somewhat better now. He says he has been having trouble breathing about the last month. PAST HISTORY: 1. COPD. 2. Congestive heart failure. 3. Coronary artery disease. 4. Previous bypass surgery. The patient does have a previous history of myocardial infarction. He underwent bypass surgery in 2003, bypass x4 with internal mammary to the LAD, left radial to the diagonal (radial was piggybacked onto the ramus graft), saphenous vein graft to the ramus and to the right coronary artery. The patient has undergone percutaneous intervention. Most recently, this was done successfully by Dr. Cheng in January 2018. At that time, the patient had a stenting for in-stent restenosis in the LAD. MEDICATIONS: 1. Atorvastatin. 2. Isosorbide. 3. Potassium. 4. Tamsulosin. 5. Aspirin. 6. Carvedilol. 7. Clopidogrel. 8. Lisinopril 2.5 mg a day. 9. Lasix 40 mg twice a day. ALLERGIES: NONE KNOWN. SOCIAL HISTORY: No alcohol or tobacco. REVIEW OF SYSTEMS: CONSTITUTIONAL: No significant weight gain or loss. VISION: No changes. HEARING: No changes. PULMONARY: No cough or wheezing. GASTROINTESTINAL: No nausea, vomiting, or diarrhea. SKIN: No rashes. NEUROLOGIC: No unilateral weakness or numbness. PSYCHIATRIC: No unusual depression or anxiety. HEMATOLOGIC: No unusual bruising. FAMILY HISTORY: Noncontributory. Negative for heart disease at young age. PHYSICAL EXAMINATION: GENERAL: This is a very pleasant, elderly gentleman, 78 years of age. VITAL SIGNS: Blood pressure 122/71, pulse 63 and regular. LUNGS: Clear. CARDIAC: Normal S1. Normal S2. ABDOMEN: Soft and nontender. EXTREMITIES: Warm and dry. No clubbing. No cyanosis or edema. PSYCHIATRIC: Mood and affect normal. NEUROLOGIC: Grossly normal. DIAGNOSTIC DATA: Troponin level 0.189. BNP 2736. EKG is atrial paced. It looks like a biventricular paced rhythm, I suspect as well with normal function. Chest x-ray does look like a biventricular pacemaker defibrillator with some mild pulmonary vascular congestion. ASSESSMENT: 1. Congestive heart failure, systolic, acute on chronic. Most recent ejection fraction, 20% to 25%. 2. Coronary artery disease. 3. Increased troponin probably related to heart failure, demand ischemia, not a myocardial infarction. PLAN: 1. Agree with diuretics. 2. As an outpatient, could consider changing from lisinopril to Entresto, but has to be off MARTIN inhibitors for at least 36 hours prior to starting the Entresto. 3. Continue carvedilol. 4. Dr. Cheng will resume the patient's care tomorrow. Job ID: [id number]
--- NOTE | 2019-04-04 17:47 | CT ---
EXAM: CT brain without contrast HISTORY: Slurred speech began several weeks ago COMPARISON: 12/23/2017 TECHNIQUE: Multiple contiguous axial images were obtained and a CT of the brain without contrast. FINDINGS: There are scattered hypodensities in the subcortical and periventricular white matter consi stent with small vessel ischemic disease. There is no evidence of hydrocephalus, intracranial hemorrhage, or extra-axial fluid collection. The calvarium and overlying soft tissues are unremarkable. Mucosal thickening is seen in the left max illary sinus. The other visualized paranasal sinuses and mastoid air cells are well aerated. IMPRESSION: No evidence of acute intracranial abnormality
[2019-04-04] MEDS ORDERED: Prevnar 13-Val Conj/PF 0.5 ML SYRINGE IM ONE (21:00)
[2019-04-04] MEDS: Atorvastatin Calcium 40 MG TAB PO SCH (21:44)
[2019-04-04] MEDS: Tamsulosin HCl 0.4 MG CAP PO SCH (21:44)
[2019-04-04] MEDS: cefTRIAXone\\ROCEPHIN 1 GM in Sodium Chloride 0.9% 100 ML IVPB SCH (21:44)
[2019-04-05 04:45] LABS: #Basophils 0.1 thou/uL (0.0-0.2); #Eosinphils 0.4 thou/uL (0.0-0.7); #Lymphocytes 1.3 thou/uL (1.20-3.40); #Monocytes 0.5 thou/uL (0.11-0.59); %Basophils 0.7 % (0.0-1.0); %Eosinophils 5.7 % (0.0-10.0); %Lymphocytes 17.6 % (21.0-51.0); %Monocytes 6.7 % (0.0-10.0); %Neutrophils 69.3 % (42.0-75.0); Hemoglobin 14.6 g/dL (14.0-18.0); Mean Corpuscular HGB CONC 34.2 g/dL (32.0-36.0); Mean Corpuscular Hemoglobin 30.7 pg (27.0-31.0); Mean Corpuscular Volume 89.9 fL (78.0-98.0); Mean Platelet Volume 5.3 fL (7.4-10.4); Platelet Count 161 thou/uL (130-400); RBC Distribution Width 15.3 % (11.5-14.5); Red Blood Cell (RBC) Count 4.76 mill/uL (4.70-6.10); White Blood Cell (WBC) Count 7.2 thou/uL (4.8-10.8)
[2019-04-05 05:02] LABS: Anion Gap 15 mmol/L (10-20); BUN (Urea Nitrogen) 23 mg/dL (8.4-25.7); Calc. Creatinine Clearance 50 mL/min (70-130); Calcium 9.5 mg/dL (7.8-10.44); Carbon Dioxide 23 mmol/L (23-31); Chloride 105 mmol/L (98-107); Estimated GFR-MDRD 66; Glucose 95 mg/dL (83-110); Potassium 3.9 mmol/L (3.5-5.1); Sodium 139 mmol/L (136-145)
[2019-04-05] MEDS: Furosemide 40 MG/4 ML VIAL SLOW IVP SCH ×2 (06:21→13:32)
[2019-04-05] MEDS ORDERED: Lisinopril 2.5 MG TAB PO SCH (09:00)
[2019-04-05] MEDS: Aspirin 81 mg Enteric Coated Tablet PO SCH (09:26)
[2019-04-05] MEDS: Potassium Chloride 20 MEQ TAB PO SCH ×2 (09:26→17:39)
[2019-04-05] MEDS: Clopidogrel Bisulfate 75 MG TAB PO SCH (09:26)
[2019-04-05] MEDS: Enoxaparin Sodium 40 MG/0.4 ML SYRINGE SC SCH (09:26)
[2019-04-05] MEDS: Carvedilol 3.125 MG TAB PO SCH ×2 (09:26→17:39)
--- NOTE | 2019-04-05 14:40 | PDOC.HOSPP ---
- Subjective Encounter Date: 04/05/19 Encounter Time: 08:40 Subjective: Pt seen for followup re: CHF exacerbation. Says he feels better. - Objective Vital Signs & Weight: Vital Signs (12 hours) Temp Pulse Pulse Pulse Resp BP BP 04/05/19 13:20 04/05/19 11:45 97.2 F L 63 18 04/05/19 10:09 61 75 100/51 L 105/57 L 04/05/19 09:25 64 04/05/19 08:05 04/05/19 08:00 97.8 F 60 16 04/05/19 06:19 04/05/19 04:00 97.4 F L 67 16 BP Pulse Ox 04/05/19 13:20 91/61 04/05/19 11:45 92/55 L 96 04/05/19 10:09 04/05/19 09:25 04/05/19 08:05 96 04/05/19 08:00 124/68 96 04/05/19 06:19 103/54 L 04/05/19 04:00 94/55 L 99 Weight Weight 134 lb 6.4 oz I&O: 04/04/19 04/05/19 04/06/19 06:59 06:59 06:59 Intake Total 930 560 Output Total 1475 75 Balance -545 485 Result Diagrams: 04/05/19 04:23 04/05/19 04:23 Additional Labs: Labs and MARs reviewed by [facility] Hospitalist ROS - Review of Systems Respiratory: denies: cough, shortness of breath, SOB with excertion, pleuritic pain, wheezing Cardiovascular: denies: chest pain, palpitations, orthopnea, paroxysmal noc. dyspnea, edema, light headedness - Medication Medications: Active Medications Generic Name Dose Route Start Last Admin Trade Name Freq PRN Reason Stop Dose Admin Aspirin 81 mg 04/05/19 09:00 04/05/19 09:26 Ecotrin PO 81 mg DAILY JERALD Administration Atorvastatin Calcium 80 mg 04/04/19 21:00 04/04/19 21:44 Lipitor PO 80 mg HS JERALD Administration Carvedilol 3.125 mg 04/04/19 17:00 04/05/19 09:26 Coreg PO 3.125 mg BID-WM JERALD Administration Clopidogrel Bisulfate 75 mg 04/05/19 09:00 04/05/19 09:26 Plavix PO 75 mg DAILY JERALD Administration Enoxaparin Sodium 40 mg 04/05/19 09:00 04/05/19 09:26 Lovenox SC 40 mg 0900 JERALD Administration Furosemide 40 mg 04/04/19 14:00 04/05/19 13:32 Lasix SLOW IVP Not Given 0600,1400 JERALD Ceftriaxone Sodium 1 gm/ 100 mls @ 200 mls/hr 04/04/19 22:00 04/04/19 21:44 Sodium Chloride IVPB 100 mls Q24HR JERALD Administration Isosorbide Mononitrate 60 mg 04/05/19 09:00 04/05/19 09:26 Imdur PO 60 mg DAILY JERALD Administration Potassium Chloride 20 meq 04/04/19 17:00 04/05/19 09:26 K-Dur PO 20 meq BID-WM JERALD Administration Sodium Chloride 10 ml 04/04/19 09:00 04/05/19 09:27 Flush - Normal Saline IVF 10 ml Q12HR JERALD Administration Tamsulosin HCl 0.4 mg 04/04/19 21:00 04/04/19 21:44 Flomax PO 0.4 mg HS JERALD Administration - Exam General Appearance: NAD Eye: anicteric sclera ENT: moist mucosa Neck: supple Heart: RRR Respiratory: CTAB Gastrointestinal: soft, non-tender Extremities: no edema Neurological: no weakness Musculoskeletal: normal tone, normal strength Psychiatric: normal affect, normal behavior Hosp A/P (1) Acute on chronic systolic CHF (congestive heart failure), NYHA class 3 Code(s): I50.23 - ACUTE ON CHRONIC SYSTOLIC (CONGESTIVE) HEART FAILURE Status : Acute (2) UTI (urinary tract infection) Status: Acute (3) BPH (benign prostatic hyperplasia) Code(s): N40.0 - BENIGN PROSTATIC HYPERPLASIA WITHOUT LOWER URINRY TRACT SYMP Status: Chronic Qualifiers: Lower urinary tract symptom detail: unspecified (4) CAD (coronary artery disease) Code(s): I25.10 - ATHSCL HEART DISEASE OF [place] CORONARY ARTERY W/O ANG PCTRS Status: Chronic Qualifiers: Coronary Disease-Associated Artery/Lesion type: [place] artery [place] vs. transplanted heart: [place] heart Associated angina: with stable angina Qualified Code(s): I25.118 - Atherosclerotic heart disease of [place] coronary artery with other forms of angina pectoris (5) HTN (hypertension) Code(s): I10 - ESSENTIAL (PRIMARY) HYPERTENSION Status: Chronic Qualifiers: Hypertension type: essential hypertension Qualified Code(s): I10 - Essential (primary) hypertension - Plan PT/OT continue IV furosemide. Blood pressures a little low at times. Continue IV ceftriaxone, follow urine culture. Continue statin. BPH stable.
[2019-04-05] MEDS: cefTRIAXone\\ROCEPHIN 1 GM in Sodium Chloride 0.9% 100 ML IVPB SCH (21:31)
[2019-04-05] MEDS: Tamsulosin HCl 0.4 MG CAP PO SCH (21:33)
[2019-04-05] MEDS: Atorvastatin Calcium 40 MG TAB PO SCH (21:33)
[2019-04-06 04:34] LABS: #Eosinphils 0.3 thou/uL (0.0-0.7); #Lymphocytes 1.3 thou/uL (1.20-3.40); #Monocytes 0.5 thou/uL (0.11-0.59); #Neutrophils 3.7 thou/uL (1.40-6.50); %Basophils 0.8 % (0.0-1.0); %Eosinophils 5.5 % (0.0-10.0); %Lymphocytes 22.6 % (21.0-51.0); %Monocytes 8.6 % (0.0-10.0); %Neutrophils 62.5 % (42.0-75.0); Hemoglobin 14.1 g/dL (14.0-18.0); Mean Corpuscular HGB CONC 34.7 g/dL (32.0-36.0); Mean Corpuscular Hemoglobin 30.9 pg (27.0-31.0); Mean Platelet Volume 7.8 fL (7.4-10.4); Platelet Count 154 thou/uL (130-400); RBC Distribution Width 15.2 % (11.5-14.5); Red Blood Cell (RBC) Count 4.56 mill/uL (4.70-6.10); White Blood Cell (WBC) Count 5.9 thou/uL (4.8-10.8)
[2019-04-06 04:51] LABS: Anion Gap 12 mmol/L (10-20); BUN (Urea Nitrogen) 32 mg/dL (8.4-25.7); Calc. Creatinine Clearance 47 mL/min (70-130); Calcium 9.2 mg/dL (7.8-10.44); Carbon Dioxide 21 mmol/L (23-31); Chloride 105 mmol/L (98-107); Estimated GFR-MDRD 65; Glucose 85 mg/dL (83-110); Sodium 134 mmol/L (136-145)
[2019-04-06] MEDS: Furosemide 40 MG/4 ML VIAL SLOW IVP SCH ×2 (05:49→13:45)
[2019-04-06] MEDS: Clopidogrel Bisulfate 75 MG TAB PO SCH (08:57)
[2019-04-06] MEDS: Potassium Chloride 20 MEQ TAB PO SCH ×2 (08:57→17:22)
[2019-04-06] MEDS: Lisinopril 2.5 MG TAB PO SCH (08:57)
[2019-04-06] MEDS: Carvedilol 3.125 MG TAB PO SCH ×2 (08:57→17:22)
[2019-04-06] MEDS: Aspirin 81 mg Enteric Coated Tablet PO SCH (08:57)
[2019-04-06] MEDS: Enoxaparin Sodium 40 MG/0.4 ML SYRINGE SC SCH (08:58)
--- NOTE | 2019-04-06 16:55 | PDOC.HOSPP ---
- Subjective Encounter Date: 04/06/19 Encounter Time: 07:20 Subjective: Pt seen for followup re: CHF exacerbation. Denies any complaints. - Objective Vital Signs & Weight: Vital Signs (12 hours) Temp Pulse Pulse Pulse Resp BP BP 04/06/19 16:00 97.4 F L 61 16 04/06/19 12:00 97.5 F L 60 16 04/06/19 09:10 60 65 146/51 H 93/50 L 04/06/19 08:57 61 04/06/19 08:00 98.2 F 61 16 BP Pulse Ox 04/06/19 16:00 105/51 L 99 04/06/19 12:00 101/51 L 96 04/06/19 09:10 04/06/19 08:57 04/06/19 08:00 102/55 L 96 Weight Weight 141 lb 11.2 oz I&O: 04/05/19 04/06/19 04/07/19 06:59 06:59 06:59 Intake Total 930 560 Output Total 1475 325 Balance -545 235 Result Diagrams: 04/06/19 04:20 04/06/19 04:20 Additional Labs: Labs and MARs reviewed by me EKG Reviewed by me: Yes (Tele: V-paced rhythm) Hospitalist ROS - Review of Systems Respiratory: reports: SOB with excertion Cardiovascular: denies: chest pain, palpitations, orthopnea, paroxysmal noc. dyspnea, edema, light headedness Gastrointestinal: denies: nausea, vomitting, abdominal pain, diarrhea, constipation, melena, hematochezia - Medication Medications: Active Medications Generic Name Dose Route Start Last Admin Trade Name Nicolle PRN Reason Stop Dose Admin Aspirin 81 mg 04/05/19 09:00 04/06/19 08:57 Ecotrin PO 81 mg DAILY JERALD Administration Atorvastatin Calcium 80 mg 04/04/19 21:00 04/05/19 21:33 Lipitor PO 80 mg HS JERALD Administration Carvedilol 3.125 mg 04/04/19 17:00 04/06/19 08:57 Coreg PO 3.125 mg BID-WM JERALD Administration Clopidogrel Bisulfate 75 mg 04/05/19 09:00 04/06/19 08:57 Plavix PO 75 mg DAILY JERALD Administration Enoxaparin Sodium 40 mg 04/05/19 09:00 04/06/19 08:58 Lovenox SC 40 mg 0900 JERALD Administration Ceftriaxone Sodium 1 gm/ 100 mls @ 200 mls/hr 04/04/19 22:00 04/05/19 21:31 Sodium Chloride IVPB 100 mls Q24HR JERALD Administration Isosorbide Mononitrate 60 mg 04/05/19 09:00 04/06/19 08:58 Imdur PO 60 mg DAILY JERALD Administration Lisinopril 1.25 mg 04/06/19 09:00 04/06/19 08:57 Zestril PO 1.25 mg DAILY JERALD Administration Potassium Chloride 20 meq 04/04/19 17:00 04/06/19 08:57 K-Dur PO 20 meq BID-WM JERALD Administration Sodium Chloride 10 ml 04/04/19 09:00 04/06/19 09:04 Flush - Normal Saline IVF 10 ml Q12HR JERALD Administration Tamsulosin HCl 0.4 mg 04/04/19 21:00 04/05/19 21:33 Flomax PO 0.4 mg HS JERALD Administration - Exam General Appearance: NAD Eye: anicteric sclera ENT: no oropharyngeal lesions Neck: supple Heart: RRR Respiratory: CTAB Gastrointestinal: soft, non-tender Extremities: no cyanosis Neurological: no weakness Psychiatric: normal affect, normal behavior Hosp A/P (1) Acute on chronic systolic CHF (congestive heart failure), NYHA class 3 Code(s): I50.23 - ACUTE ON CHRONIC SYSTOLIC (CONGESTIVE) HEART FAILURE Status : Acute (2) UTI (urinary tract infection) Status: Acute (3) BPH (benign prostatic hyperplasia) Code(s): N40.0 - BENIGN PROSTATIC HYPERPLASIA WITHOUT LOWER URINRY TRACT SYMP Status: Chronic Qualifiers: Lower urinary tract symptom detail: unspecified (4) CAD (coronary artery disease) Code(s): I25.10 - ATHSCL HEART DISEASE OF [place] CORONARY ARTERY W/O ANG PCTRS Status: Chronic Qualifiers: Coronary Disease-Associated Artery/Lesion type: [place] artery [place] vs. transplanted heart: [place] heart Associated angina: with stable angina Qualified Code(s): I25.118 - Atherosclerotic heart disease of [place] coronary artery with other forms of angina pectoris (5) HTN (hypertension) Code(s): I10 - ESSENTIAL (PRIMARY) HYPERTENSION Status: Chronic Qualifiers: Hypertension type: essential hypertension Qualified Code(s): I10 - Essential (primary) hypertension - Plan out of bed/ambulate Furosemide switched to oral. UTI due to pansensitive Klebsiella oxytoca, switch to nitrofurantoin. Lisinopril dose was decreased. Continue statin. BPH stable. Likely home in 24 hrs.
[2019-04-06] MEDS: Nitrofurantoin Monohyd/M-Cryst 100 MG CAP PO SCH (21:55)
[2019-04-06] MEDS: Atorvastatin Calcium 40 MG TAB PO SCH (21:55)
[2019-04-06] MEDS: Tamsulosin HCl 0.4 MG CAP PO SCH (21:57)
[2019-04-06] MEDS ORDERED: Melatonin 3 MG TAB PO PRN (22:21)
[2019-04-07 00:09] VITALS: TEMP 97.6
[2019-04-07 06:18] LABS: #Eosinphils 0.3 thou/uL (0.0-0.7); #Lymphocytes 1.2 thou/uL (1.20-3.40); #Monocytes 0.5 thou/uL (0.11-0.59); %Basophils 0.8 % (0.0-1.0); %Eosinophils 4.3 % (0.0-10.0); %Neutrophils 66.9 % (42.0-75.0); Mean Corpuscular HGB CONC 33.5 g/dL (32.0-36.0); Mean Corpuscular Hemoglobin 29.7 pg (27.0-31.0); Mean Corpuscular Volume 88.8 fL (78.0-98.0); Mean Platelet Volume 7.8 fL (7.4-10.4); Platelet Count 167 thou/uL (130-400); RBC Distribution Width 15.1 % (11.5-14.5); Red Blood Cell (RBC) Count 4.73 mill/uL (4.70-6.10); White Blood Cell (WBC) Count 5.9 thou/uL (4.8-10.8)
[2019-04-07 06:39] LABS: Anion Gap 14 mmol/L (10-20); BUN (Urea Nitrogen) 34 mg/dL (8.4-25.7); Calc. Creatinine Clearance 48 mL/min (70-130); Calcium 9.5 mg/dL (7.8-10.44); Carbon Dioxide 19 mmol/L (23-31); Chloride 106 mmol/L (98-107); Estimated GFR-MDRD 63; Glucose 89 mg/dL (83-110); Potassium 4.2 mmol/L (3.5-5.1); Sodium 135 mmol/L (136-145)
[2019-04-07] MEDS: Aspirin 81 mg Enteric Coated Tablet PO SCH (08:10)
[2019-04-07] MEDS: Potassium Chloride 20 MEQ TAB PO SCH (08:10)
[2019-04-07] MEDS: Clopidogrel Bisulfate 75 MG TAB PO SCH (08:11)
[2019-04-07] MEDS: Nitrofurantoin Monohyd/M-Cryst 100 MG CAP PO SCH (08:11)
[2019-04-07] MEDS: Enoxaparin Sodium 40 MG/0.4 ML SYRINGE SC SCH (08:12)
[2019-04-07 08:53] VITALS: BP 99/52
[2019-04-07] MEDS: Carvedilol 3.125 MG TAB PO SCH (08:53)
[2019-04-07] MEDS: Lisinopril 2.5 MG TAB PO SCH (08:53)
[2019-04-07] MEDS ORDERED: Furosemide 40 MG TAB PO SCH (09:00)
--- NOTE | 2019-04-08 04:40 | DIS ---
DATE OF ADMISSION: 04/04/2019 DATE OF DISCHARGE: 04/07/2019 PRIMARY CARE PROVIDER: Dr. Elton Lowery. DISCHARGE DIAGNOSES: 1. Acute on chronic systolic congestive heart failure, ACC/AHA class C and NYHA class III. 2. Urinary tract infection with Klebsiella oxytoca, pansensitive. 3. Hyponatremia. CONDITION OF PATIENT ON THE DAY OF DISCHARGE: Stable. I assessed Mr. Huff on the day of discharge. He denies any chest pain or shortness of breath. Vital signs are stable. S1 and S2 are heard, regular. Lungs are clear to auscultation bilaterally. DISCHARGE MEDICATIONS: 1. His lisinopril dose has been decreased to 1.25 mg daily. 2. He will receive nitrofurantoin 100 mg 2 times a day for 4 days. Otherwise, no change was made to his pre-admission home medications as dictated on my history and physical note dated April 04, 2019. CONSULTATIONS DURING THIS HOSPITALIZATION: Cardiology, Dr. Neely. HOSPITAL COURSE: Mr. Huff is a pleasant 78-year-old gentleman who was admitted to [facility] on April 04, 2019, for congestive heart failure exacerbation and urinary tract infection. He was treated with intravenous antibiotics and intravenous diuretics. 2D echocardiogram showed moderately increased left ventricular size, severely depressed overall left ventricular function, left ventricular ejection fraction of 20% to 25%, dyskinetic motion of the apical wall noted in the left ventricle, defibrillator wire in the right ventricle, severely dilated left atrium, moderate mitral regurgitation, sclerotic aortic valve, moderate aortic regurgitation, mild tricuspid regurgitation, and mild pulmonic regurgitation. He improved clinically. Urine cultures grew pansensitive Klebsiella oxytoca. He is being discharged home in a stable condition. On the day of discharge, he has sodium of 135, potassium of 4.2, and creatinine of 1.13; white count of 5900, hemoglobin of 14, and platelet count of 167,000. Please note that his blood pressures were on the lower side during this hospitalization. Therefore, his lisinopril dose has been decreased. He has been advised to check his blood pressure and heart rate 3 times a day and show the readings to his primary care provider. FOLLOWUP APPOINTMENTS: With Cardiology, Dr. Cheng, on April 09, 2019, at 9:15 a.m. and with primary care provider, Dr. Lowery, in 7 days. DISCHARGE DESTINATION: Home. TIME SPENT: Total amount of time spent coordinating this discharge: Thirty-one minutes. Job ID: [id number]
--- NOTE | 2019-04-10 15:56 | EKG ---
Test Reason : ER INDICATION Blood Pressure : / mmHG Vent. Rate : 079 BPM Atrial Rate : 079 BPM P-R Int : 164 ms QRS Dur : 168 ms QT Int : 462 ms P-R-T Axes : 044 -86 086 degrees QTc Int : 529 ms AV dual-paced rhythm Biventricular pacemaker detected Abnormal ECG Confirmed by DON DUNLAP ([id number]), international editorial producer STUART CASILLAS ([id number]) on 04/10/2019 3:55:37 PM Referred By: Confirmed By:DON DUNLAP
== END 2019-04-07 11:25 | disposition home or self-care (01) | DRG 292 ==
LOC: ERS 20:06 → 2SE 04-04 00:56
PROVIDERS: ADMIT Hospitalist; ATTEND Hospitalist
DX: I11.0 Hypertensive heart disease with heart failure (principal); N39.0 Urinary tract infection, site not specified; I24.8 Other forms of acute ischemic heart disease; E87.1 Hypo-osmolality and hyponatremia; I50.23 Acute on chronic systolic (congestive) heart failure; E78.5 Hyperlipidemia, unspecified; G40.909 Epilepsy, unspecified, not intractable, without status epilepticus; F17.210 Nicotine dependence, cigarettes, uncomplicated; B96.89 Other specified bacterial agents as the cause of diseases classified elsewhere; N40.0 Benign prostatic hyperplasia without lower urinary tract symptoms; I25.10 Atherosclerotic heart disease of native coronary artery without angina pectoris; I08.3 Combined rheumatic disorders of mitral, aortic and tricuspid valves; J44.9 Chronic obstructive pulmonary disease, unspecified; Z95.1 Presence of aortocoronary bypass graft; Z95.0 Presence of cardiac pacemaker; Z79.82 Long term (current) use of aspirin; Z79.899 Other long term (current) drug therapy; I25.2 Old myocardial infarction
CPT/HCPCS: 36415; 70450; 71045; 80048; 80053; 81003; 81015; 82553; 83690; 83880; 84484; 85025; 87077; 87086; 87186; 93005; 93306; 93798; 96365; 96372; 96375; J0696; J1650; J1940; J3490

== ENCOUNTER 2020-09-12 11:29 | Inpatient (IN) | payer MEDICARE, OTHER ==
[2020-09-12 12:19] LABS: #Eosinphils 0.2 thou/uL (0.0-0.7); #Lymphocytes 1.1 thou/uL (1.20-3.40); #Monocytes 0.4 thou/uL (0.11-0.59); #Neutrophils 4.4 thou/uL (1.40-6.50); %Basophils 0.8 % (0.0-1.0); %Eosinophils 3.6 % (0.0-10.0); %Lymphocytes 17.5 % (21.0-51.0); %Neutrophils 72.1 % (42.0-75.0); Hemoglobin 13.7 g/dL (14.0-18.0); Mean Corpuscular HGB CONC 33.2 g/dL (32.0-36.0); Mean Corpuscular Hemoglobin 29.8 pg (27.0-31.0); Mean Corpuscular Volume 89.6 fL (78.0-98.0); Mean Platelet Volume 7.3 fL (7.4-10.4); Platelet Count 161 thou/uL (130-400); Red Blood Cell (RBC) Count 4.62 mill/uL (4.70-6.10); White Blood Cell (WBC) Count 6.1 thou/uL (4.8-10.8)
[2020-09-12 12:49] LABS: ALT (SGPT) Less than 7 U/L (8-55); AST (SGOT) 11 U/L (5-34); Albumin 3.7 g/dL (3.4-4.8); Alkaline Phosphatase 108 U/L (40-110); Anion Gap 13 mmol/L (10-20); BUN (Urea Nitrogen) 26 mg/dL (8.4-25.7); Bilirubin, Total 1.1 mg/dL (0.2-1.2); Calc. Creatinine Clearance 0 mL/min (70-130); Carbon Dioxide 25 mmol/L (23-31); Chloride 104 mmol/L (98-107); Globulin 2.9 g/dL (2.4-3.5); Glucose 116 mg/dL (83-110); Potassium 3.9 mmol/L (3.5-5.1); Protein, Total 6.6 g/dL (5.8-8.1); Sodium 138 mmol/L (136-145)
[2020-09-12 12:55] LABS: CK (CPK) 49 U/L (30-200); Lipase 22 U/L (8-78)
[2020-09-12 13:09] LABS: CKMB 1.9 ng/mL (0-6.6)
[2020-09-12] MEDS ORDERED: Furosemide 40 MG/4 ML VIAL ONE (13:51)
[2020-09-12] MEDS ORDERED: Aspirin Chewable 81 MG TAB ONE ×2 (14:04→14:05)
[2020-09-12 15:10] LABS: Bilirubin Negative (Negative); Blood, Urine Negative (Negative); Clarity Clear (Clear); Glucose, Urine (Dipstick) Normal (Negative); Ketone, Urine Negative (Negative); Leukocyte Negative Leu/uL (Negative); Nitrite Negative (Negative); Protein, Urine (Dipstick) Negative (Neg-Trace); Specific Gravity, Urine 1.014 (1.002-1.036); pH, Urine 6.5 (5.0-9.0)
[2020-09-12 16:19] LABS: Troponin I 0.054 ng/mL (< 0.028)
[2020-09-12 18:51] LABS: Troponin I 0.059 ng/mL (< 0.028)
[2020-09-12 19:41] LABS: SARS-CoV-2 NAA Rapid Test Not Detected (NotDetected)
[2020-09-12 23:57] LABS: Troponin I 0.069 ng/mL (< 0.028)
[2020-09-13] MEDS ORDERED: Acetaminophen 650 MG Suppository PR PRN (02:08)
[2020-09-13] MEDS ORDERED: Acetaminophen 325 MG TAB PO PRN (02:08)
[2020-09-13 05:58] VITALS: BMI 22.6
[2020-09-13] MEDS ORDERED: Furosemide 40 MG/4 ML VIAL SLOW IVP SCH (06:00)
[2020-09-13 07:59] LABS: #Basophils 0.1 thou/uL (0.0-0.2); #Eosinphils 0.3 thou/uL (0.0-0.7); #Lymphocytes 1.2 thou/uL (1.20-3.40); #Monocytes 0.4 thou/uL (0.11-0.59); #Neutrophils 4.5 thou/uL (1.40-6.50); %Basophils 0.9 % (0.0-1.0); %Eosinophils 5.3 % (0.0-10.0); %Lymphocytes 18.1 % (21.0-51.0); %Monocytes 6.7 % (0.0-10.0); Hemoglobin 14.5 g/dL (14.0-18.0); Mean Corpuscular HGB CONC 33.9 g/dL (32.0-36.0); Mean Corpuscular Hemoglobin 30.5 pg (27.0-31.0); Mean Corpuscular Volume 89.9 fL (78.0-98.0); Mean Platelet Volume 7.5 fL (7.4-10.4); Platelet Count 151 thou/uL (130-400); RBC Distribution Width 14.1 % (11.5-14.5); Red Blood Cell (RBC) Count 4.77 mill/uL (4.70-6.10); White Blood Cell (WBC) Count 6.5 thou/uL (4.8-10.8)
[2020-09-13 08:18] LABS: Anion Gap 15 mmol/L (10-20); BUN (Urea Nitrogen) 23 mg/dL (8.4-25.7); Calc. Creatinine Clearance 45 mL/min (70-130); Calcium 9.4 mg/dL (7.8-10.44); Carbon Dioxide 25 mmol/L (23-31); Cardiac Risk 4.7 (Less than 4.5); Chloride 105 mmol/L (98-107); Cholesterol 112 mg/dl (< 200 Desired); Glucose 88 mg/dL (83-110); HDL Cholesterol 24 mg/dL (>60 Neg Risk); LDL Cholesterol, Calculated 71 mg/dL; Potassium 3.6 mmol/L (3.5-5.1); Sodium 141 mmol/L (136-145); Triglycerides 87 mg/dL (Less than 150)
[2020-09-13] MEDS ORDERED: Aspirin Chewable 81 MG TAB PO SCH (09:00)
[2020-09-13] MEDS ORDERED: Nitroglycerin 0.4 MG TAB (25 Tab Bottle) SL PRN (11:17)
[2020-09-13] MEDS ORDERED: Carvedilol 3.125 MG TAB PO SCH (11:30)
[2020-09-13] MEDS ORDERED: Clopidogrel Bisulfate 75 MG TAB PO SCH (11:30)
[2020-09-13] MEDS ORDERED: Communication Order-Pharmacy FS SCH (14:45)
[2020-09-13] MEDS: Potassium Chloride 20 MEQ TAB PO SCH (16:02)
[2020-09-13] MEDS ORDERED: Regadenoson 0.4 MG/5 ML SYRINGE ONE (17:36)
[2020-09-13] MEDS: Furosemide 80 MG TAB PO SCH (20:36)
[2020-09-13] MEDS: Atorvastatin Calcium 40 MG TAB PO SCH (20:37)
[2020-09-13] MEDS: Carvedilol 3.125 MG TAB PO SCH (20:37)
[2020-09-13 23:09] LABS: Anion Gap 15 mmol/L (10-20); Carbon Dioxide 22 mmol/L (23-31); Chloride 104 mmol/L (98-107); Magnesium 2.3 mg/dL (1.6-2.6); Potassium 3.9 mmol/L (3.5-5.1); Sodium 137 mmol/L (136-145)
[2020-09-13 23:27] LABS: CKMB 1.7 ng/mL (0-6.6)
[2020-09-14] MEDS: Clopidogrel Bisulfate 75 MG TAB PO SCH (05:38)
[2020-09-14] MEDS: Potassium Chloride 20 MEQ TAB PO SCH ×2 (05:38→20:37)
[2020-09-14] MEDS: Cyanocobalamin (Vitamin B-12) 1,000 MCG TAB PO SCH (05:38)
[2020-09-14] MEDS: Cholecalciferol 1,000 UNITS (25 MCG) TAB PO SCH (05:38)
[2020-09-14] MEDS: Aspirin 81 mg Enteric Coated Tablet PO SCH (05:38)
[2020-09-14] MEDS: Carvedilol 3.125 MG TAB PO SCH ×2 (05:39→20:39)
[2020-09-14] MEDS ORDERED: Sodium Chloride 0.9% 1,000 ML IV SCH ×2 (06:00→12:49)
[2020-09-14] MEDS ORDERED: Lidocaine 1% (PF) 30 ML VIAL ONE (09:02)
[2020-09-14] MEDS ORDERED: Heparin 10,000 UNITS/ 10 ML VIAL ONE (09:06)
[2020-09-14] MEDS ORDERED: Midazolam HCl 2 mg/2 ml Vial ONE (11:09)
[2020-09-14] MEDS ORDERED: Fentanyl 100 MCG/2 ML VIAL ONE (11:09)
[2020-09-14] MEDS ORDERED: Bivalirudin 250 MG VIAL ONE (11:39)
[2020-09-14] MEDS ORDERED: Morphine 4 MG/ML VIAL SLOW IVP PRN (12:48)
[2020-09-14] MEDS ORDERED: Morphine 2 MG/ML VIAL SLOW IVP PRN (12:48)
[2020-09-14] MEDS: Furosemide 80 MG TAB PO SCH ×2 (15:44→20:37)
[2020-09-14] MEDS ORDERED: Iopamidol 370 76% 50 ML VIAL FS ONE (17:48)
[2020-09-14] MEDS ORDERED: Iopamidol 370 76% 100 ML VIAL ONE (17:48)
[2020-09-14] MEDS ORDERED: Morphine 2 MG/ML VIAL ONE (18:02)
[2020-09-14] MEDS: Atorvastatin Calcium 40 MG TAB PO SCH (20:37)
[2020-09-14] MEDS ORDERED: Furosemide 40 MG TAB PO SCH (21:00)
[2020-09-15 03:45] LABS: #Basophils 0.1 thou/uL (0.0-0.2); #Eosinphils 0.2 thou/uL (0.0-0.7); #Lymphocytes 0.8 thou/uL (1.20-3.40); #Monocytes 0.4 thou/uL (0.11-0.59); %Basophils 0.9 % (0.0-1.0); %Eosinophils 3.7 % (0.0-10.0); %Monocytes 6.6 % (0.0-10.0); %Neutrophils 76.9 % (42.0-75.0); Hemoglobin 13.1 g/dL (14.0-18.0); Mean Corpuscular HGB CONC 33.6 g/dL (32.0-36.0); Mean Corpuscular Hemoglobin 29.8 pg (27.0-31.0); Mean Corpuscular Volume 88.7 fL (78.0-98.0); Mean Platelet Volume 7.5 fL (7.4-10.4); Platelet Count 124 thou/uL (130-400); RBC Distribution Width 14.1 % (11.5-14.5); White Blood Cell (WBC) Count 6.5 thou/uL (4.8-10.8)
[2020-09-15 04:09] LABS: ALT (SGPT) Less than 7 U/L (8-55); AST (SGOT) 14 U/L (5-34); Albumin 3.4 g/dL (3.4-4.8); Alkaline Phosphatase 99 U/L (40-110); Anion Gap 15 mmol/L (10-20); BUN (Urea Nitrogen) 21 mg/dL (8.4-25.7); Bilirubin, Total 2.1 mg/dL (0.2-1.2); Calc. Creatinine Clearance 59 mL/min (70-130); Calcium 8.7 mg/dL (7.8-10.44); Carbon Dioxide 17 mmol/L (23-31); Chloride 106 mmol/L (98-107); Globulin 2.6 g/dL (2.4-3.5); Glucose 61 mg/dL (83-110); Potassium 4.1 mmol/L (3.5-5.1); Sodium 134 mmol/L (136-145)
[2020-09-15] MEDS: Potassium Chloride 20 MEQ TAB PO SCH (07:58)
[2020-09-15] MEDS: Aspirin 81 mg Enteric Coated Tablet PO SCH (07:59)
[2020-09-15] MEDS: Clopidogrel Bisulfate 75 MG TAB PO SCH (07:59)
[2020-09-15] MEDS: Cyanocobalamin (Vitamin B-12) 1,000 MCG TAB PO SCH (08:00)
[2020-09-15] MEDS: Furosemide 40 MG TAB PO SCH ×2 (08:00→13:10)
[2020-09-15] MEDS: Carvedilol 3.125 MG TAB PO SCH (08:01)
[2020-09-15] MEDS: Cholecalciferol 1,000 UNITS (25 MCG) TAB PO SCH (08:01)
[2020-09-15 15:07] VITALS: BP 120/58; TEMP 98.4
== END 2020-09-15 16:10 | disposition home or self-care (01) | DRG 247 ==
LOC: ERS 11:29 → ERHOLD 23:14 → 2NO 09-13 05:45 → OBSVTOIN 09-15 14:06
PROVIDERS: ADMIT Student in an Organized Health Care Education/Training Program; ATTEND Internal Medicine
PROC: 027135Z Dilation of Coronary Artery, Two Arteries with Two Drug-eluting Intraluminal Devices, Percutaneous Approach (ICD-10-PCS; principal; 2020-09-14)
PROC: 4A023N7 Measurement of Cardiac Sampling and Pressure, Left Heart, Percutaneous Approach (ICD-10-PCS; 2020-09-14)
PROC: B2131ZZ Fluoroscopy of Multiple Coronary Artery Bypass Grafts using Low Osmolar Contrast (ICD-10-PCS; 2020-09-14)
DX: I24.9 Acute ischemic heart disease, unspecified (principal); I50.22 Chronic systolic (congestive) heart failure; J44.9 Chronic obstructive pulmonary disease, unspecified; E78.5 Hyperlipidemia, unspecified; S09.90XA Unspecified injury of head, initial encounter; F17.210 Nicotine dependence, cigarettes, uncomplicated; I11.0 Hypertensive heart disease with heart failure; W19.XXXA Unspecified fall, initial encounter; N40.0 Benign prostatic hyperplasia without lower urinary tract symptoms; Z20.822 Contact with and (suspected) exposure to COVID-19; I25.5 Ischemic cardiomyopathy; I25.118 Atherosclerotic heart disease of native coronary artery with other forms of angina pectoris; R47.81 Slurred speech; Z79.82 Long term (current) use of aspirin; I25.2 Old myocardial infarction; Z95.1 Presence of aortocoronary bypass graft; Z90.89 Acquired absence of other organs; Z95.810 Presence of automatic (implantable) cardiac defibrillator
CPT/HCPCS: 0240U; 36415; 70450; 71045; 78452; 80048; 80053; 80061; 81003; 82550; 82553; 83690; 83735; 83880; 84484; 85025; 85347; 92928; 93005; 93010; 93017; 93306; 93455; 94760; 95712; 95819; 95957; 96374; 96376; 99152; A9500; C1874; C9600; G0378; J0583; J1644; J1940; J2001; J2250; J2270; J2785; J3010; Q9967

== ENCOUNTER 2021-03-07 13:52 | Outpatient (CLI) | payer OTHER | END 2021-03-07 13:53 | disposition home or self-care (01) | LOC: BICCT 13:52 | PROVIDERS: ATTEND Registered Nurse | DX: Z03.89 Encounter for observation for other suspected diseases and conditions ruled out (principal) | CPT/HCPCS: 70450 ==

== ENCOUNTER 2021-08-02 18:25 | Inpatient (IN) | payer OTHER ==
[2021-08-02] MEDS ORDERED: Guaifenesin DM 100-10/5 ML UDCUP PO PRN (19:28)
[2021-08-02] MEDS ORDERED: Ondansetron PF 4 MG/2 ML Vial IVP PRN (19:28)
[2021-08-02] MEDS ORDERED: Bisacodyl 5 MG TAB PO PRN (19:28)
[2021-08-02] MEDS ORDERED: Acetaminophen 325 MG TAB PO PRN (19:28)
[2021-08-02] MEDS ORDERED: Nicotine 21 MG PATCH TD SCH (20:00)
[2021-08-02 20:13] LABS: Calcium 8.7 mg/dL (7.8-10.44); Phosphorus 3.1 mg/dL (2.3-4.7)
[2021-08-02 20:19] LABS: Troponin I 0.039 ng/mL (< 0.028)
[2021-08-02] MEDS ORDERED: Famotidine/PF 20 mg/2ml Vial SLOW IVP SCH (21:00)
[2021-08-02] MEDS ORDERED: Furosemide 20 MG/2 ML VIAL SLOW IVP SCH (21:15)
[2021-08-02] MEDS: Senokot S 8.6-50 MG TAB PO SCH (21:15)
[2021-08-02] MEDS: Melatonin 3 MG TAB PO PRN (21:15)
[2021-08-02 21:20] LABS: #Eosinphils 0.1 thou/uL (0.0-0.7); #Lymphocytes 0.7 thou/uL (1.20-3.40); #Monocytes 0.5 thou/uL (0.11-0.59); #Neutrophils 6.6 thou/uL (1.40-6.50); %Basophils 0.4 % (0.0-1.0); %Eosinophils 1.5 % (0.0-10.0); %Monocytes 6.8 % (0.0-10.0); %Neutrophils 82.3 % (42.0-75.0); Hemoglobin 10.9 g/dL (14.0-18.0); Mean Corpuscular Hemoglobin 31.7 pg (27.0-31.0); Mean Corpuscular Volume 93.2 fL (78.0-98.0); Mean Platelet Volume 7.4 fL (7.4-10.4); Platelet Count 127 thou/uL (130-400); RBC Distribution Width 15.9 % (11.5-14.5); Red Blood Cell (RBC) Count 3.44 mill/uL (4.70-6.10)
[2021-08-02 21:35] LABS: ALT (SGPT) 7 U/L (8-55); AST (SGOT) 15 U/L (5-34); Albumin 3.2 g/dL (3.4-4.8); Alkaline Phosphatase 71 U/L (40-110); Anion Gap 15 mmol/L (10-20); BUN (Urea Nitrogen) 25 mg/dL (8.4-25.7); Bilirubin, Total 1.3 mg/dL (0.2-1.2); Calc. Creatinine Clearance 37 mL/min (70-130); Calcium 8.8 mg/dL (7.8-10.44); Carbon Dioxide 24 mmol/L (23-31); Chloride 105 mmol/L (98-107); Globulin 2.9 g/dL (2.4-3.5); Glucose 101 mg/dL (83-110); Potassium 3.5 mmol/L (3.5-5.1); Protein, Total 6.1 g/dL (5.8-8.1); Sodium 140 mmol/L (136-145)
[2021-08-03] MEDS ORDERED: Furosemide 20 MG/2 ML VIAL SLOW IVP SCH (06:00)
[2021-08-03 06:31] LABS: #Eosinphils 0.2 thou/uL (0.0-0.7); #Lymphocytes 0.9 thou/uL (1.20-3.40); #Monocytes 0.5 thou/uL (0.11-0.59); #Neutrophils 5.1 thou/uL (1.40-6.50); %Basophils 0.5 % (0.0-1.0); %Eosinophils 3.3 % (0.0-10.0); %Lymphocytes 13.3 % (21.0-51.0); %Monocytes 7.6 % (0.0-10.0); %Neutrophils 75.3 % (42.0-75.0); Hemoglobin 10.6 g/dL (14.0-18.0); Mean Corpuscular HGB CONC 34.3 g/dL (32.0-36.0); Mean Corpuscular Hemoglobin 31.9 pg (27.0-31.0); Mean Corpuscular Volume 93.2 fL (78.0-98.0); Mean Platelet Volume 7.5 fL (7.4-10.4); Platelet Count 126 thou/uL (130-400); RBC Distribution Width 15.7 % (11.5-14.5); Red Blood Cell (RBC) Count 3.31 mill/uL (4.70-6.10); White Blood Cell (WBC) Count 6.8 thou/uL (4.8-10.8)
[2021-08-03 06:52] LABS: ALT (SGPT) 7 U/L (8-55); AST (SGOT) 14 U/L (5-34); Albumin 3.1 g/dL (3.4-4.8); Alkaline Phosphatase 70 U/L (40-110); Anion Gap 10 mmol/L (10-20); BUN (Urea Nitrogen) 23 mg/dL (8.4-25.7); Bilirubin, Total 1.5 mg/dL (0.2-1.2); Calc. Creatinine Clearance 40 mL/min (70-130); Calcium 9.1 mg/dL (7.8-10.44); Carbon Dioxide 25 mmol/L (23-31); Chloride 105 mmol/L (98-107); Globulin 2.9 g/dL (2.4-3.5); Glucose 84 mg/dL (83-110); Potassium 3.1 mmol/L (3.5-5.1); Sodium 137 mmol/L (136-145)
[2021-08-03] MEDS: Carvedilol 3.125 MG TAB PO SCH ×2 (09:54→20:58)
[2021-08-03] MEDS: Senokot S 8.6-50 MG TAB PO SCH ×2 (09:54→20:58)
[2021-08-03] MEDS: Cyanocobalamin (Vitamin B-12) 1,000 MCG TAB PO SCH (09:54)
[2021-08-03] MEDS: Clopidogrel Bisulfate 75 MG TAB PO SCH (09:55)
[2021-08-03] MEDS: Aspirin 81 mg Enteric Coated Tablet PO SCH (09:55)
[2021-08-03 10:51] LABS: Bacteria/HPF None Seen HPF (None Seen); Bilirubin Negative (Negative); Blood, Urine Negative (Negative); Clarity Clear (Clear); Glucose, Urine (Dipstick) Normal (Negative); Ketone, Urine Negative (Negative); Leukocyte 250 Leu/uL (Negative); Nitrite Negative (Negative); Protein, Urine (Dipstick) Negative (Neg-Trace); RBC/HPF 0-3 HPF (0-3); Specific Gravity, Urine 1.012 (1.002-1.036); Squamous Epithelial None Seen HPF (0-3); Urobilinogen Normal mg/dL (Less than 2)
[2021-08-03 10:52] LABS: Urine Culture Reflex Yes Yes
[2021-08-03] MEDS ORDERED: Non-Formulary Item 1 EACH (Albuterol Sulfate [Proair Digihaler] 90 MCG Aer.Pw.Bas) IH PRN (13:02)
[2021-08-03] MEDS ORDERED: Albuterol 200 PUFF (6.7GM INHALER) INH PRN (13:11)
[2021-08-03] MEDS ORDERED: Potassium Chloride 20 MEQ TAB PO SCH (15:30)
[2021-08-03] MEDS: Potassium Chloride 20 MEQ TAB PO SCH (19:46)
[2021-08-03] MEDS: Atorvastatin Calcium 40 MG TAB PO SCH (20:57)
[2021-08-03] MEDS: Tamsulosin HCl 0.4 MG CAP PO SCH (20:57)
[2021-08-03] MEDS: Famotidine 20 MG TAB PO SCH (20:57)
[2021-08-03] MEDS: Melatonin 3 MG TAB PO PRN (20:58)
[2021-08-03] MEDS ORDERED: Simvastatin 20 MG TAB PO SCH (21:00)
[2021-08-04 05:34] LABS: #Eosinphils 0.4 thou/uL (0.0-0.7); #Lymphocytes 0.9 thou/uL (1.20-3.40); #Monocytes 0.5 thou/uL (0.11-0.59); #Neutrophils 4.4 thou/uL (1.40-6.50); %Basophils 0.5 % (0.0-1.0); %Lymphocytes 15.1 % (21.0-51.0); %Monocytes 7.4 % (0.0-10.0); Hemoglobin 11.3 g/dL (14.0-18.0); Mean Corpuscular Hemoglobin 31.5 pg (27.0-31.0); Mean Corpuscular Volume 92.7 fL (78.0-98.0); Mean Platelet Volume 7.5 fL (7.4-10.4); Platelet Count 124 thou/uL (130-400); RBC Distribution Width 15.9 % (11.5-14.5); Red Blood Cell (RBC) Count 3.59 mill/uL (4.70-6.10); White Blood Cell (WBC) Count 6.2 thou/uL (4.8-10.8)
[2021-08-04 05:57] LABS: Anion Gap 11 mmol/L (10-20); BUN (Urea Nitrogen) 20 mg/dL (8.4-25.7); Calc. Creatinine Clearance 49 mL/min (70-130); Calcium 9.1 mg/dL (7.8-10.44); Carbon Dioxide 23 mmol/L (23-31); Cardiac Risk 3.9 (Less than 4.5); Chloride 106 mmol/L (98-107); Cholesterol 118 mg/dl (< 200 Desired); Glucose 83 mg/dL (83-110); HDL Cholesterol 30 mg/dL (>60 Neg Risk); LDL Cholesterol, Calculated 71 mg/dL; Potassium 3.2 mmol/L (3.5-5.1); Sodium 137 mmol/L (136-145); Triglycerides 83 mg/dL (Less than 150)
[2021-08-04] MEDS: Furosemide 40 MG/4 ML VIAL SLOW IVP SCH ×2 (06:27→13:29)
[2021-08-04] MEDS: Aspirin 81 mg Enteric Coated Tablet PO SCH (09:47)
[2021-08-04] MEDS: Clopidogrel Bisulfate 75 MG TAB PO SCH (09:47)
[2021-08-04] MEDS: Folic Acid 1 MG TAB PO SCH (09:47)
[2021-08-04] MEDS: Senokot S 8.6-50 MG TAB PO SCH ×2 (09:47→20:59)
[2021-08-04] MEDS: Potassium Chloride 20 MEQ TAB PO SCH (09:47)
[2021-08-04] MEDS: Ezetimibe 10 MG TAB PO SCH (09:47)
[2021-08-04] MEDS: Cyanocobalamin (Vitamin B-12) 1,000 MCG TAB PO SCH (09:47)
[2021-08-04] MEDS: Famotidine 20 MG TAB PO SCH ×2 (09:47→20:58)
[2021-08-04] MEDS: Carvedilol 3.125 MG TAB PO SCH ×2 (09:47→20:58)
[2021-08-04] MEDS ORDERED: Spironolactone 25 MG TAB PO SCH (10:00)
[2021-08-04] MEDS ORDERED: Potassium Chloride 20 MEQ TAB PO SCH (10:00)
[2021-08-04] MEDS: Atorvastatin Calcium 40 MG TAB PO SCH (20:57)
[2021-08-04] MEDS: Tamsulosin HCl 0.4 MG CAP PO SCH (20:58)
[2021-08-04] MEDS: Melatonin 3 MG TAB PO PRN (20:58)
[2021-08-05 05:20] LABS: Anion Gap 14 mmol/L (10-20); BUN (Urea Nitrogen) 18 mg/dL (8.4-25.7); Calc. Creatinine Clearance 42 mL/min (70-130); Calcium 8.8 mg/dL (7.8-10.44); Carbon Dioxide 20 mmol/L (23-31); Chloride 107 mmol/L (98-107); Glucose 95 mg/dL (83-110); Potassium 3.6 mmol/L (3.5-5.1); Sodium 137 mmol/L (136-145)
[2021-08-05] MEDS: Furosemide 40 MG/4 ML VIAL SLOW IVP SCH ×2 (06:14→17:03)
[2021-08-05] MEDS: Potassium Chloride 20 MEQ TAB PO SCH ×3 (07:22→17:03)
[2021-08-05] MEDS ORDERED: Metolazone 5 MG TAB PO SCH (11:30)
[2021-08-05] MEDS ORDERED: Potassium Chloride 20 MEQ TAB PO SCH (11:30)
[2021-08-05] MEDS: Folic Acid 1 MG TAB PO SCH (11:36)
[2021-08-05] MEDS: Spironolactone 25 MG TAB PO SCH (11:36)
[2021-08-05] MEDS: Aspirin 81 mg Enteric Coated Tablet PO SCH (11:36)
[2021-08-05] MEDS: Clopidogrel Bisulfate 75 MG TAB PO SCH (11:36)
[2021-08-05] MEDS: Cyanocobalamin (Vitamin B-12) 1,000 MCG TAB PO SCH ×2 (11:36→11:37)
[2021-08-05] MEDS: Ezetimibe 10 MG TAB PO SCH (11:36)
[2021-08-05] MEDS: Carvedilol 3.125 MG TAB PO SCH ×2 (11:36→20:52)
[2021-08-05] MEDS: Senokot S 8.6-50 MG TAB PO SCH ×2 (11:37→20:53)
[2021-08-05] MEDS: Famotidine 20 MG TAB PO SCH ×2 (11:37→20:52)
[2021-08-05] MEDS: Atorvastatin Calcium 40 MG TAB PO SCH (20:52)
[2021-08-05] MEDS: Ciprofloxacin 500 MG TAB PO SCH (20:52)
[2021-08-05] MEDS: Melatonin 3 MG TAB PO PRN (20:52)
[2021-08-05] MEDS: Tamsulosin HCl 0.4 MG CAP PO SCH (20:52)
[2021-08-06 05:40] LABS: Anion Gap 13 mmol/L (10-20); BUN (Urea Nitrogen) 19 mg/dL (8.4-25.7); Calc. Creatinine Clearance 39 mL/min (70-130); Calcium 8.7 mg/dL (7.8-10.44); Carbon Dioxide 23 mmol/L (23-31); Chloride 104 mmol/L (98-107); Glucose 92 mg/dL (83-110); Potassium 3.6 mmol/L (3.5-5.1); Sodium 136 mmol/L (136-145)
[2021-08-06] MEDS: Ciprofloxacin 500 MG TAB PO SCH ×2 (05:54→20:28)
[2021-08-06] MEDS: Furosemide 40 MG/4 ML VIAL SLOW IVP SCH ×2 (05:54→18:17)
[2021-08-06] MEDS: Cyanocobalamin (Vitamin B-12) 1,000 MCG TAB PO SCH (09:40)
[2021-08-06] MEDS: Metolazone 5 MG TAB PO SCH (09:40)
[2021-08-06] MEDS: Carvedilol 3.125 MG TAB PO SCH ×2 (09:40→20:28)
[2021-08-06] MEDS: Senokot S 8.6-50 MG TAB PO SCH ×2 (09:40→20:33)
[2021-08-06] MEDS: Clopidogrel Bisulfate 75 MG TAB PO SCH (09:41)
[2021-08-06] MEDS: Folic Acid 1 MG TAB PO SCH (09:41)
[2021-08-06] MEDS: Spironolactone 25 MG TAB PO SCH (09:41)
[2021-08-06] MEDS: Potassium Chloride 20 MEQ TAB PO SCH ×2 (09:41→18:29)
[2021-08-06] MEDS: Aspirin 81 mg Enteric Coated Tablet PO SCH (09:41)
[2021-08-06] MEDS: Ezetimibe 10 MG TAB PO SCH (09:41)
[2021-08-06] MEDS: Famotidine 20 MG TAB PO SCH (09:41)
[2021-08-06] MEDS: Atorvastatin Calcium 40 MG TAB PO SCH (20:28)
[2021-08-06] MEDS: Tamsulosin HCl 0.4 MG CAP PO SCH (20:28)
[2021-08-06] MEDS: Melatonin 3 MG TAB PO PRN (20:28)
[2021-08-07] MEDS: Ciprofloxacin 500 MG TAB PO SCH ×2 (06:33→21:09)
[2021-08-07] MEDS: Furosemide 40 MG/4 ML VIAL SLOW IVP SCH (06:33)
[2021-08-07 07:22] LABS: #Eosinphils 0.2 thou/uL (0.0-0.7); #Lymphocytes 0.7 thou/uL (1.20-3.40); #Monocytes 0.5 thou/uL (0.11-0.59); #Neutrophils 4.2 thou/uL (1.40-6.50); %Basophils 0.6 % (0.0-1.0); %Eosinophils 4.3 % (0.0-10.0); %Lymphocytes 12.9 % (21.0-51.0); %Neutrophils 74.2 % (42.0-75.0); Hemoglobin 11.7 g/dL (14.0-18.0); Mean Corpuscular HGB CONC 35.1 g/dL (32.0-36.0); Mean Corpuscular Hemoglobin 32.4 pg (27.0-31.0); Mean Corpuscular Volume 92.1 fL (78.0-98.0); Mean Platelet Volume 6.7 fL (7.4-10.4); Platelet Count 140 thou/uL (130-400); RBC Distribution Width 15.9 % (11.5-14.5); Red Blood Cell (RBC) Count 3.61 mill/uL (4.70-6.10); White Blood Cell (WBC) Count 5.7 thou/uL (4.8-10.8)
[2021-08-07 07:40] LABS: Anion Gap 14 mmol/L (10-20); BUN (Urea Nitrogen) 21 mg/dL (8.4-25.7); Calc. Creatinine Clearance 29 mL/min (70-130); Calcium 9.2 mg/dL (7.8-10.44); Carbon Dioxide 26 mmol/L (23-31); Chloride 99 mmol/L (98-107); Glucose 95 mg/dL (83-110); Potassium 3.3 mmol/L (3.5-5.1); Sodium 136 mmol/L (136-145)
[2021-08-07] MEDS: Metolazone 5 MG TAB PO SCH (09:33)
[2021-08-07] MEDS: Ezetimibe 10 MG TAB PO SCH (09:33)
[2021-08-07] MEDS: Spironolactone 25 MG TAB PO SCH (09:33)
[2021-08-07] MEDS: Aspirin 81 mg Enteric Coated Tablet PO SCH (09:33)
[2021-08-07] MEDS: Senokot S 8.6-50 MG TAB PO SCH ×2 (09:33→21:09)
[2021-08-07] MEDS: Folic Acid 1 MG TAB PO SCH (09:34)
[2021-08-07] MEDS: Potassium Chloride 20 MEQ TAB PO SCH ×2 (09:34→17:30)
[2021-08-07] MEDS: Famotidine 20 MG TAB PO SCH (09:34)
[2021-08-07] MEDS: Clopidogrel Bisulfate 75 MG TAB PO SCH (09:34)
[2021-08-07] MEDS: Cyanocobalamin (Vitamin B-12) 1,000 MCG TAB PO SCH (09:35)
[2021-08-07] MEDS: Carvedilol 3.125 MG TAB PO SCH ×2 (09:35→21:09)
[2021-08-07] MEDS: Furosemide 20 MG TAB PO SCH (15:30)
[2021-08-07] MEDS: Tamsulosin HCl 0.4 MG CAP PO SCH (21:09)
[2021-08-07] MEDS: Atorvastatin Calcium 40 MG TAB PO SCH (21:09)
[2021-08-08 05:21] LABS: Anion Gap 14 mmol/L (10-20); BUN (Urea Nitrogen) 27 mg/dL (8.4-25.7); Calc. Creatinine Clearance 26 mL/min (70-130); Calcium 9.1 mg/dL (7.8-10.44); Carbon Dioxide 27 mmol/L (23-31); Chloride 99 mmol/L (98-107); Glucose 84 mg/dL (83-110); Potassium 3.5 mmol/L (3.5-5.1); Sodium 136 mmol/L (136-145)
[2021-08-08] MEDS: Ciprofloxacin 500 MG TAB PO SCH (05:55)
[2021-08-08] MEDS: Aspirin 81 mg Enteric Coated Tablet PO SCH (09:13)
[2021-08-08] MEDS: Famotidine 20 MG TAB PO SCH (09:14)
[2021-08-08] MEDS: Clopidogrel Bisulfate 75 MG TAB PO SCH (09:14)
[2021-08-08] MEDS: Folic Acid 1 MG TAB PO SCH (09:14)
[2021-08-08] MEDS: Cyanocobalamin (Vitamin B-12) 1,000 MCG TAB PO SCH (09:14)
[2021-08-08] MEDS: Furosemide 20 MG TAB PO SCH ×2 (09:14→15:44)
[2021-08-08] MEDS: Carvedilol 3.125 MG TAB PO SCH ×2 (09:14→21:35)
[2021-08-08] MEDS: Potassium Chloride 20 MEQ TAB PO SCH (09:14)
[2021-08-08] MEDS: Senokot S 8.6-50 MG TAB PO SCH ×2 (09:14→22:28)
[2021-08-08] MEDS: Ezetimibe 10 MG TAB PO SCH (09:15)
[2021-08-08] MEDS: Atorvastatin Calcium 40 MG TAB PO SCH (21:35)
[2021-08-08] MEDS: Melatonin 3 MG TAB PO PRN (21:35)
[2021-08-08] MEDS: Tamsulosin HCl 0.4 MG CAP PO SCH (22:28)
[2021-08-09 06:26] LABS: Anion Gap 16 mmol/L (10-20); BUN (Urea Nitrogen) 25 mg/dL (8.4-25.7); Calc. Creatinine Clearance 28 mL/min (70-130); Calcium 9.1 mg/dL (7.8-10.44); Carbon Dioxide 24 mmol/L (23-31); Chloride 97 mmol/L (98-107); Glucose 92 mg/dL (83-110); Potassium 3.2 mmol/L (3.5-5.1); Sodium 134 mmol/L (136-145)
[2021-08-09] MEDS: Cyanocobalamin (Vitamin B-12) 1,000 MCG TAB PO SCH (09:30)
[2021-08-09] MEDS: Senokot S 8.6-50 MG TAB PO SCH ×2 (09:30→21:05)
[2021-08-09] MEDS: Ezetimibe 10 MG TAB PO SCH (09:30)
[2021-08-09] MEDS: Aspirin 81 mg Enteric Coated Tablet PO SCH (09:31)
[2021-08-09] MEDS: Carvedilol 3.125 MG TAB PO SCH ×2 (09:31→21:05)
[2021-08-09] MEDS: Famotidine 20 MG TAB PO SCH (09:31)
[2021-08-09] MEDS: Clopidogrel Bisulfate 75 MG TAB PO SCH (09:31)
[2021-08-09] MEDS: Folic Acid 1 MG TAB PO SCH (09:31)
[2021-08-09] MEDS: Furosemide 20 MG TAB PO SCH ×2 (09:31→14:06)
[2021-08-09] MEDS: Potassium Chloride 20 MEQ TAB PO SCH (09:31)
[2021-08-09] MEDS ORDERED: Potassium Chloride 20 MEQ TAB PO SCH (15:30)
[2021-08-09] MEDS: Tamsulosin HCl 0.4 MG CAP PO SCH (21:05)
[2021-08-09] MEDS: Atorvastatin Calcium 40 MG TAB PO SCH (21:05)
[2021-08-09] MEDS: Melatonin 3 MG TAB PO PRN (21:05)
[2021-08-10] MEDS ORDERED: Sterile Water 10 ML VIAL FS PRN (00:15)
[2021-08-10] MEDS ORDERED: OLANZapine 10 MG VIAL IM SCH (00:15)
[2021-08-10] MEDS: Clopidogrel Bisulfate 75 MG TAB PO SCH (09:37)
[2021-08-10] MEDS: Carvedilol 3.125 MG TAB PO SCH ×2 (09:37→20:52)
[2021-08-10] MEDS: Aspirin 81 mg Enteric Coated Tablet PO SCH (09:37)
[2021-08-10] MEDS: Folic Acid 1 MG TAB PO SCH (09:37)
[2021-08-10] MEDS: Ezetimibe 10 MG TAB PO SCH (09:37)
[2021-08-10] MEDS: Furosemide 20 MG TAB PO SCH ×2 (09:37→14:52)
[2021-08-10] MEDS: Famotidine 20 MG TAB PO SCH (09:37)
[2021-08-10] MEDS: Potassium Chloride 20 MEQ TAB PO SCH (09:37)
[2021-08-10] MEDS: Senokot S 8.6-50 MG TAB PO SCH ×2 (09:38→20:51)
[2021-08-10] MEDS ORDERED: Aspirin 81 mg Enteric Coated Tablet PO SCH (09:45)
[2021-08-10] MEDS ORDERED: Famotidine 20 MG TAB PO SCH (09:45)
[2021-08-10] MEDS ORDERED: Potassium Chloride 20 MEQ TAB PO SCH (09:45)
[2021-08-10] MEDS ORDERED: Cyanocobalamin (Vitamin B-12) 1,000 MCG TAB PO SCH (09:45)
[2021-08-10] MEDS ORDERED: Senokot S 8.6-50 MG TAB PO SCH (09:45)
[2021-08-10] MEDS ORDERED: Ezetimibe 10 MG TAB PO SCH (09:45)
[2021-08-10] MEDS ORDERED: Carvedilol 3.125 MG TAB PO SCH (09:45)
[2021-08-10] MEDS: Sodium Chloride 0.9% 1,000 ML IV SCH (14:51)
[2021-08-10] MEDS: Atorvastatin Calcium 40 MG TAB PO SCH (20:51)
[2021-08-10] MEDS: Tamsulosin HCl 0.4 MG CAP PO SCH (20:51)
[2021-08-10] MEDS: Melatonin 3 MG TAB PO PRN (20:51)
[2021-08-11 08:09] LABS: #Basophils 0.1 thou/uL (0.0-0.2); #Eosinphils 0.2 thou/uL (0.0-0.7); #Lymphocytes 0.9 thou/uL (1.20-3.40); #Monocytes 0.6 thou/uL (0.11-0.59); #Neutrophils 4.7 thou/uL (1.40-6.50); %Basophils 0.8 % (0.0-1.0); %Eosinophils 3.3 % (0.0-10.0); %Lymphocytes 14.5 % (21.0-51.0); %Monocytes 8.9 % (0.0-10.0); %Neutrophils 72.4 % (42.0-75.0); Hemoglobin 12.5 g/dL (14.0-18.0); Mean Corpuscular Hemoglobin 30.7 pg (27.0-31.0); Mean Corpuscular Volume 92.9 fL (78.0-98.0); Mean Platelet Volume 7.3 fL (7.4-10.4); Platelet Count 159 thou/uL (130-400); RBC Distribution Width 15.8 % (11.5-14.5); Red Blood Cell (RBC) Count 4.08 mill/uL (4.70-6.10); White Blood Cell (WBC) Count 6.5 thou/uL (4.8-10.8)
[2021-08-11 08:29] LABS: ALT (SGPT) 7 U/L (8-55); AST (SGOT) 14 U/L (5-34); Albumin 3.3 g/dL (3.4-4.8); Alkaline Phosphatase 72 U/L (40-110); Anion Gap 13 mmol/L (10-20); BUN (Urea Nitrogen) 29 mg/dL (8.4-25.7); Bilirubin, Total 1.2 mg/dL (0.2-1.2); Calc. Creatinine Clearance 24 mL/min (70-130); Calcium 9.2 mg/dL (7.8-10.44); Carbon Dioxide 25 mmol/L (23-31); Chloride 102 mmol/L (98-107); Glucose 90 mg/dL (83-110); Potassium 3.3 mmol/L (3.5-5.1); Protein, Total 6.3 g/dL (5.8-8.1); Sodium 137 mmol/L (136-145)
[2021-08-11] MEDS: Folic Acid 1 MG TAB PO SCH (09:27)
[2021-08-11] MEDS: Aspirin 81 mg Enteric Coated Tablet PO SCH (09:27)
[2021-08-11] MEDS: Cyanocobalamin (Vitamin B-12) 1,000 MCG TAB PO SCH (09:27)
[2021-08-11] MEDS: Famotidine 20 MG TAB PO SCH (09:27)
[2021-08-11] MEDS: Senokot S 8.6-50 MG TAB PO SCH ×2 (09:27→20:55)
[2021-08-11] MEDS: Carvedilol 3.125 MG TAB PO SCH ×2 (09:27→20:56)
[2021-08-11] MEDS: Clopidogrel Bisulfate 75 MG TAB PO SCH (09:27)
[2021-08-11] MEDS: Ezetimibe 10 MG TAB PO SCH (09:28)
[2021-08-11] MEDS: Sodium Chloride 0.9% 1,000 ML IV SCH (10:04)
[2021-08-11] MEDS: Tamsulosin HCl 0.4 MG CAP PO SCH (20:55)
[2021-08-11] MEDS: Atorvastatin Calcium 40 MG TAB PO SCH (20:55)
[2021-08-12] MEDS: Sodium Chloride 0.9% 1,000 ML IV SCH (05:09)
[2021-08-12 08:36] LABS: #Eosinphils 0.1 thou/uL (0.0-0.7); #Lymphocytes 0.8 thou/uL (1.20-3.40); #Monocytes 0.8 thou/uL (0.11-0.59); %Eosinophils 0.6 % (0.0-10.0); %Lymphocytes 6.3 % (21.0-51.0); %Monocytes 5.9 % (0.0-10.0); %Neutrophils 87.1 % (42.0-75.0); Hemoglobin 12.3 g/dL (14.0-18.0); Mean Corpuscular HGB CONC 32.8 g/dL (32.0-36.0); Mean Corpuscular Hemoglobin 30.7 pg (27.0-31.0); Mean Corpuscular Volume 93.7 fL (78.0-98.0); Mean Platelet Volume 7.4 fL (7.4-10.4); Platelet Count 132 thou/uL (130-400); RBC Distribution Width 15.7 % (11.5-14.5); Red Blood Cell (RBC) Count 4.01 mill/uL (4.70-6.10); White Blood Cell (WBC) Count 12.6 thou/uL (4.8-10.8)
[2021-08-12 08:55] LABS: Anion Gap 15 mmol/L (10-20); BUN (Urea Nitrogen) 29 mg/dL (8.4-25.7); Calc. Creatinine Clearance 29 mL/min (70-130); Calcium 8.8 mg/dL (7.8-10.44); Carbon Dioxide 21 mmol/L (23-31); Chloride 104 mmol/L (98-107); Glucose 100 mg/dL (83-110); Sodium 137 mmol/L (136-145)
[2021-08-12] MEDS: Clopidogrel Bisulfate 75 MG TAB PO SCH (09:21)
[2021-08-12] MEDS: Carvedilol 3.125 MG TAB PO SCH ×2 (09:21→20:57)
[2021-08-12] MEDS: Folic Acid 1 MG TAB PO SCH (09:21)
[2021-08-12] MEDS: Ezetimibe 10 MG TAB PO SCH (09:21)
[2021-08-12] MEDS: Famotidine 20 MG TAB PO SCH (09:21)
[2021-08-12] MEDS: Aspirin 81 mg Enteric Coated Tablet PO SCH (09:21)
[2021-08-12] MEDS: Cyanocobalamin (Vitamin B-12) 1,000 MCG TAB PO SCH (09:21)
[2021-08-12] MEDS: Senokot S 8.6-50 MG TAB PO SCH ×2 (09:22→21:04)
[2021-08-12] MEDS: Atorvastatin Calcium 40 MG TAB PO SCH (20:56)
[2021-08-12] MEDS: Tamsulosin HCl 0.4 MG CAP PO SCH (20:57)
[2021-08-13] MEDS ORDERED: Midodrine HCl 5 MG TAB PO SCH (04:30)
[2021-08-13 06:28] VITALS: BMI 19.5
[2021-08-13 07:05] LABS: #Eosinphils 0.2 thou/uL (0.0-0.7); #Lymphocytes 0.9 thou/uL (1.20-3.40); #Monocytes 0.5 thou/uL (0.11-0.59); #Neutrophils 6.5 thou/uL (1.40-6.50); %Basophils 0.4 % (0.0-1.0); %Eosinophils 2.8 % (0.0-10.0); %Lymphocytes 10.8 % (21.0-51.0); %Monocytes 6.5 % (0.0-10.0); %Neutrophils 79.5 % (42.0-75.0); Hemoglobin 11.4 g/dL (14.0-18.0); Mean Corpuscular HGB CONC 33.1 g/dL (32.0-36.0); Mean Corpuscular Hemoglobin 31.1 pg (27.0-31.0); Mean Corpuscular Volume 94.2 fL (78.0-98.0); Mean Platelet Volume 7.6 fL (7.4-10.4); Platelet Count 124 thou/uL (130-400); RBC Distribution Width 15.8 % (11.5-14.5); Red Blood Cell (RBC) Count 3.67 mill/uL (4.70-6.10); White Blood Cell (WBC) Count 8.2 thou/uL (4.8-10.8)
[2021-08-13 07:25] LABS: Anion Gap 12 mmol/L (10-20); BUN (Urea Nitrogen) 23 mg/dL (8.4-25.7); Calc. Creatinine Clearance 35 mL/min (70-130); Calcium 8.7 mg/dL (7.8-10.44); Carbon Dioxide 24 mmol/L (23-31); Chloride 103 mmol/L (98-107); Glucose 78 mg/dL (83-110); Sodium 136 mmol/L (136-145)
[2021-08-13 07:30] LABS: Potassium 2.8 mmol/L (3.5-5.1)
[2021-08-13] MEDS: Senokot S 8.6-50 MG TAB PO SCH (09:03)
[2021-08-13] MEDS: Clopidogrel Bisulfate 75 MG TAB PO SCH (09:03)
[2021-08-13] MEDS: Ezetimibe 10 MG TAB PO SCH (09:03)
[2021-08-13] MEDS: Cyanocobalamin (Vitamin B-12) 1,000 MCG TAB PO SCH (09:03)
[2021-08-13] MEDS: Aspirin 81 mg Enteric Coated Tablet PO SCH (09:03)
[2021-08-13] MEDS: Folic Acid 1 MG TAB PO SCH (09:04)
[2021-08-13] MEDS: Famotidine 20 MG TAB PO SCH (09:04)
[2021-08-13] MEDS: Potassium Chloride 20 MEQ TAB PO SCH ×2 (09:04→14:51)
[2021-08-13 16:19] VITALS: BP 101/47; TEMP 97.3
== END 2021-08-13 16:25 | DRG 291 ==
LOC: 2NO 18:25 → OBSVTOIN 08-03 13:05 → SURG A 08-10 22:40
PROVIDERS: ADMIT Emergency Medicine; ATTEND Hospitalist
DX: I13.0 Hypertensive heart and chronic kidney disease with heart failure and stage 1 through stage 4 chronic kidney disease, or unspecified chronic kidney disease (principal); I50.23 Acute on chronic systolic (congestive) heart failure; G93.41 Metabolic encephalopathy; N17.9 Acute kidney failure, unspecified; Z68.1 Body mass index [BMI] 19.9 or less, adult; J44.9 Chronic obstructive pulmonary disease, unspecified; N40.0 Benign prostatic hyperplasia without lower urinary tract symptoms; E78.5 Hyperlipidemia, unspecified; I25.10 Atherosclerotic heart disease of native coronary artery without angina pectoris; T50.2X5A Adverse effect of carbonic-anhydrase inhibitors, benzothiadiazides and other diuretics, initial encounter; F03.90 Unspecified dementia, unspecified severity, without behavioral disturbance, psychotic disturbance, mood disturbance, and anxiety; R62.7 Adult failure to thrive; R41.0 Disorientation, unspecified; F17.210 Nicotine dependence, cigarettes, uncomplicated; N18.32 Chronic kidney disease, stage 3b; I25.2 Old myocardial infarction; Z95.1 Presence of aortocoronary bypass graft; Z90.89 Acquired absence of other organs; Z95.0 Presence of cardiac pacemaker; Z79.82 Long term (current) use of aspirin; Z79.899 Other long term (current) drug therapy; Z79.02 Long term (current) use of antithrombotics/antiplatelets; Z95.5 Presence of coronary angioplasty implant and graft; Z95.810 Presence of automatic (implantable) cardiac defibrillator; Z90.49 Acquired absence of other specified parts of digestive tract; Z98.52 Vasectomy status; I25.5 Ischemic cardiomyopathy; E78.00 Pure hypercholesterolemia, unspecified
CPT/HCPCS: 36415; 70450; 71045; 80048; 80053; 80061; 81001; 82140; 82310; 83735; 83880; 84100; 84484; 85025; 86140; 87077; 87086; 87186; 93306; 96374; 96375; 96376; G0378; J1940; J2358; J7050; J7620; S0028

== ENCOUNTER 2021-09-08 22:42 | Inpatient (IN) | payer OTHER ==
[2021-09-08 23:26] LABS: #Eosinphils 0.2 thou/uL (0.0-0.7); #Lymphocytes 0.9 thou/uL (1.20-3.40); #Monocytes 0.5 thou/uL (0.11-0.59); #Neutrophils 7.5 thou/uL (1.40-6.50); %Basophils 0.2 % (0.0-1.0); %Lymphocytes 9.6 % (21.0-51.0); %Monocytes 5.7 % (0.0-10.0); %Neutrophils 82.5 % (42.0-75.0); Hemoglobin 11.9 g/dL (14.0-18.0); Mean Corpuscular HGB CONC 32.4 g/dL (32.0-36.0); Mean Corpuscular Hemoglobin 31.4 pg (27.0-31.0); Mean Corpuscular Volume 97.1 fL (78.0-98.0); Mean Platelet Volume 7.5 fL (7.4-10.4); Platelet Count 174 thou/uL (130-400); RBC Distribution Width 17.2 % (11.5-14.5); Red Blood Cell (RBC) Count 3.77 mill/uL (4.70-6.10)
[2021-09-08 23:44] LABS: ALT (SGPT) 540 U/L (8-55); AST (SGOT) 706 U/L (5-34); Albumin 3.3 g/dL (3.4-4.8); Alkaline Phosphatase 99 U/L (40-110); Anion Gap 9 mmol/L (10-20); BUN (Urea Nitrogen) 49 mg/dL (8.4-25.7); Bilirubin, Total 2.1 mg/dL (0.2-1.2); Calc. Creatinine Clearance 0 mL/min (70-130); Calcium 9.3 mg/dL (7.8-10.44); Carbon Dioxide 27 mmol/L (23-31); Chloride 105 mmol/L (98-107); Globulin 3.1 g/dL (2.4-3.5); Glucose 90 mg/dL (83-110); Lipase 22 U/L (8-78); Potassium 4.4 mmol/L (3.5-5.1); Protein, Total 6.4 g/dL (5.8-8.1); Sodium 137 mmol/L (136-145)
[2021-09-09 00:13] LABS: CKMB 8.6 ng/mL (0-6.6)
[2021-09-09] MEDS ORDERED: Aspirin Chewable 81 MG TAB ONE (00:31)
[2021-09-09] MEDS ORDERED: Cefepime 2 GM VIAL ONE (00:31)
[2021-09-09 00:58] LABS: Acetaminophen Less than 6.0 mcg/mL (10.0-30.0)
[2021-09-09] MEDS ORDERED: Vancomycin 1 GM/200 ML BAG ONE (01:05)
[2021-09-09 01:06] LABS: INR-International Normal Ratio 1.5; Prothrombin Time 18.2 sec (12.0-14.7)
[2021-09-09 01:20] LABS: HBSAg Index 0.28 S/CO (0-0.99); Hep B Surf Ag Non-Reactive S/CO (NonReactive); Hep C IgG Ab Non-Reactive (NonReactive); Hep C Index 0.12 S/CO (0-0.79)
[2021-09-09 01:21] LABS: Bilirubin Negative (Negative); Blood, Urine Negative (Negative); Clarity Clear (Clear); Glucose, Urine (Dipstick) Normal (Negative); Ketone, Urine Negative (Negative); Leukocyte 250 Leu/uL (Negative); Nitrite Negative (Negative); Protein, Urine (Dipstick) Negative (Neg-Trace); RBC/HPF 0-3 HPF (0-3); Specific Gravity, Urine 1.014 (1.002-1.036); Squamous Epithelial 0-3 HPF (0-3); WBC/HPF 21-50 HPF (0-3)
[2021-09-09 01:21] LABS: Hep A IgM AB Non-Reactive (NonReactive); Hep A IgM S/CO 0.44 S/CO (0-0.79)
[2021-09-09 01:22] LABS: HBCM Index 0.14 S/CO (0-0.79); Hepatitis B Core IgM Abs Non-Reactive (NonReactive)
[2021-09-09 01:25] LABS: Bacteria/HPF 1+ HPF (None Seen)
[2021-09-09 02:36] LABS: SARS-CoV-2 NAA Rapid Test Not Detected (NotDetected)
[2021-09-09 03:50] VITALS: BMI 20.9
[2021-09-09] MEDS ORDERED: Acetaminophen 650 MG Suppository PR PRN (04:12)
[2021-09-09] MEDS ORDERED: Ondansetron ODT 4 MG TAB PO PRN (04:12)
[2021-09-09] MEDS ORDERED: Acetaminophen 325 MG TAB PO PRN (04:12)
[2021-09-09] MEDS ORDERED: Ondansetron PF 4 MG/2 ML Vial IVP PRN (04:12)
[2021-09-09] MEDS ORDERED: Azithromycin 500 MG in Sodium Chloride 0.9% 250 ML 250 ML IVPB SCH (04:15)
[2021-09-09 04:47] LABS: Troponin I 0.072 ng/mL (< 0.028)
[2021-09-09] MEDS ORDERED: Piperacillin/Tazobactam 3.375 GM in Sodium Chloride 0.9% 100 ML IVPB SCH (06:15)
[2021-09-09 08:05] LABS: Creatinine, Urine 35.54 mg/dL (63-166)
[2021-09-09] MEDS ORDERED: Furosemide 40 MG/4 ML VIAL SLOW IVP SCH ×3 (09:00→15:00)
[2021-09-09] MEDS ORDERED: FLU VACC QS2021-22(65YR UP)/PF 240 MCG/0.7 ML SYRINGE IM ONE (09:00)
[2021-09-09] MEDS: Piperacillin/Tazobactam 3.375 GM in Sodium Chloride 0.9% 100 ML IVPB SCH ×2 (10:26→17:22)
[2021-09-09] MEDS: Enoxaparin Sodium 40 MG/0.4 ML SYRINGE SC SCH (10:26)
[2021-09-09] MEDS ORDERED: Cefepime 2 GM in Sodium Chloride 0.9% 100 ML IVPB SCH ×2 (12:00→16:00)
[2021-09-09 15:45] LABS: ALT (SGPT) 362 U/L (8-55); AST (SGOT) 250 U/L (5-34); Albumin 2.8 g/dL (3.4-4.8); Alkaline Phosphatase 88 U/L (40-110); Anion Gap 17 mmol/L (10-20); BUN (Urea Nitrogen) 40 mg/dL (8.4-25.7); Bilirubin, Total 1.8 mg/dL (0.2-1.2); CK (CPK) 162 U/L (30-200); Calc. Creatinine Clearance 35 mL/min (70-130); Calcium 8.3 mg/dL (7.8-10.44); Carbon Dioxide 18 mmol/L (23-31); Chloride 108 mmol/L (98-107); Globulin 2.6 g/dL (2.4-3.5); Glucose 82 mg/dL (83-110); Potassium 3.5 mmol/L (3.5-5.1); Protein, Total 5.4 g/dL (5.8-8.1); Sodium 139 mmol/L (136-145)
[2021-09-10] MEDS: Piperacillin/Tazobactam 3.375 GM in Sodium Chloride 0.9% 100 ML IVPB SCH ×3 (03:38→17:27)
[2021-09-10 04:48] LABS: #Eosinphils 0.2 thou/uL (0.0-0.7); #Lymphocytes 0.6 thou/uL (1.20-3.40); #Monocytes 0.5 thou/uL (0.11-0.59); #Neutrophils 7.7 thou/uL (1.40-6.50); %Basophils 0.1 % (0.0-1.0); %Eosinophils 2.1 % (0.0-10.0); %Lymphocytes 6.8 % (21.0-51.0); %Monocytes 5.3 % (0.0-10.0); %Neutrophils 85.7 % (42.0-75.0); Hemoglobin 11.1 g/dL (14.0-18.0); Mean Corpuscular HGB CONC 32.4 g/dL (32.0-36.0); Mean Corpuscular Hemoglobin 31.9 pg (27.0-31.0); Mean Corpuscular Volume 98.4 fL (78.0-98.0); Mean Platelet Volume 7.7 fL (7.4-10.4); Platelet Count 160 thou/uL (130-400); RBC Distribution Width 16.8 % (11.5-14.5); Red Blood Cell (RBC) Count 3.49 mill/uL (4.70-6.10)
[2021-09-10 05:11] LABS: Anion Gap 20 mmol/L (10-20); BUN (Urea Nitrogen) 33 mg/dL (8.4-25.7); Calc. Creatinine Clearance 39 mL/min (70-130); Calcium 8.6 mg/dL (7.8-10.44); Carbon Dioxide 16 mmol/L (23-31); Chloride 107 mmol/L (98-107); Glucose 108 mg/dL (83-110); Sodium 140 mmol/L (136-145)
[2021-09-10 05:31] LABS: Potassium 2.9 mmol/L (3.5-5.1)
[2021-09-10] MEDS: Potassium Bicarbonate/Cit Ac 20 MEQ TAB PO SCH ×4 (07:35→17:27)
[2021-09-10 08:49] LABS: Magnesium 2.1 mg/dL (1.6-2.6)
[2021-09-10] MEDS: Enoxaparin Sodium 40 MG/0.4 ML SYRINGE SC SCH (09:24)
[2021-09-10] MEDS ORDERED: Furosemide 40 MG TAB PO SCH (10:30)
[2021-09-10] MEDS: Sodium Bicarbonate Tab 325 MG TAB PO SCH ×2 (11:12→20:42)
[2021-09-11] MEDS: Piperacillin/Tazobactam 3.375 GM in Sodium Chloride 0.9% 100 ML IVPB SCH ×3 (02:05→20:10)
[2021-09-11 06:20] LABS: Hemoglobin 11.2 g/dL (14.0-18.0); Mean Corpuscular HGB CONC 31.3 g/dL (32.0-36.0); Mean Corpuscular Hemoglobin 31.3 pg (27.0-31.0); Mean Platelet Volume 7.7 fL (7.4-10.4); Platelet Count 147 thou/uL (130-400); RBC Distribution Width 17.2 % (11.5-14.5); Red Blood Cell (RBC) Count 3.56 mill/uL (4.70-6.10); White Blood Cell (WBC) Count 8.4 thou/uL (4.8-10.8)
[2021-09-11 06:48] LABS: Albumin 2.8 g/dL (3.4-4.8); Anion Gap 12 mmol/L (10-20); BUN (Urea Nitrogen) 23 mg/dL (8.4-25.7); BUN/Creatinine Ratio 22.33; Calc. Creatinine Clearance 42 mL/min (70-130); Calcium 8.6 mg/dL (7.8-10.44); Carbon Dioxide 24 mmol/L (23-31); Chloride 106 mmol/L (98-107); Glucose 86 mg/dL (83-110); Phosphorus 2.4 mg/dL (2.3-4.7); Potassium 4.2 mmol/L (3.5-5.1); Sodium 138 mmol/L (136-145)
[2021-09-11] MEDS: Enoxaparin Sodium 40 MG/0.4 ML SYRINGE SC SCH (10:04)
[2021-09-11] MEDS: Furosemide 40 MG TAB PO SCH (10:12)
[2021-09-11] MEDS: Sodium Bicarbonate Tab 325 MG TAB PO SCH ×3 (10:13→21:55)
[2021-09-12] MEDS: Piperacillin/Tazobactam 3.375 GM in Sodium Chloride 0.9% 100 ML IVPB SCH (03:13)
[2021-09-12 07:01] LABS: Albumin 2.8 g/dL (3.4-4.8); Anion Gap 10 mmol/L (10-20); BUN (Urea Nitrogen) 19 mg/dL (8.4-25.7); BUN/Creatinine Ratio 19.79; Calc. Creatinine Clearance 46 mL/min (70-130); Calcium 8.6 mg/dL (7.8-10.44); Carbon Dioxide 24 mmol/L (23-31); Chloride 106 mmol/L (98-107); Glucose 86 mg/dL (83-110); Phosphorus 3.1 mg/dL (2.3-4.7); Potassium 3.3 mmol/L (3.5-5.1); Sodium 137 mmol/L (136-145)
[2021-09-12] MEDS ORDERED: Carvedilol 3.125 MG TAB PO SCH (09:00)
[2021-09-12] MEDS ORDERED: Spironolactone 25 MG TAB PO SCH (09:15)
[2021-09-12] MEDS: Furosemide 40 MG TAB PO SCH (09:38)
[2021-09-12] MEDS: Potassium Chloride 20 MEQ TAB PO SCH (09:39)
[2021-09-12] MEDS: Carvedilol 6.25 MG TAB PO SCH ×2 (09:40→21:52)
[2021-09-12] MEDS: Cefdinir 300 MG CAP PO SCH ×2 (09:41→21:52)
[2021-09-12] MEDS: Enoxaparin Sodium 40 MG/0.4 ML SYRINGE SC SCH (09:41)
[2021-09-12] MEDS: Folic Acid 1 MG TAB PO SCH (09:42)
[2021-09-12] MEDS: Ezetimibe 10 MG TAB PO SCH (09:42)
[2021-09-12] MEDS: Levothyroxine Sodium 25 MCG TAB PO SCH (09:43)
[2021-09-12] MEDS: Sodium Bicarbonate Tab 325 MG TAB PO SCH ×2 (09:43→21:52)
[2021-09-12] MEDS ORDERED: Tamsulosin HCl 0.4 MG CAP PO SCH (21:00)
[2021-09-13] MEDS ORDERED: Spironolactone 25 MG TAB PO SCH (08:00)
[2021-09-13] MEDS: Sodium Bicarbonate Tab 325 MG TAB PO SCH (08:29)
[2021-09-13] MEDS: Furosemide 40 MG TAB PO SCH (08:29)
[2021-09-13] MEDS: Cefdinir 300 MG CAP PO SCH (08:29)
[2021-09-13] MEDS: Levothyroxine Sodium 25 MCG TAB PO SCH (08:29)
[2021-09-13] MEDS: Carvedilol 6.25 MG TAB PO SCH (08:29)
[2021-09-13] MEDS: Potassium Chloride 20 MEQ TAB PO SCH (08:29)
[2021-09-13] MEDS: Ezetimibe 10 MG TAB PO SCH (08:43)
[2021-09-13] MEDS: Enoxaparin Sodium 40 MG/0.4 ML SYRINGE SC SCH (08:43)
[2021-09-13] MEDS: Folic Acid 1 MG TAB PO SCH (08:44)
[2021-09-13 16:54] VITALS: BP 112/57; TEMP 97.6
== END 2021-09-13 19:45 | disposition home health service (06) | DRG 193 ==
LOC: ERS 22:42 → 2NO 09-09 01:56
PROVIDERS: ADMIT Student in an Organized Health Care Education/Training Program; ATTEND Internal Medicine
PROC: 0T9B70Z Drainage of Bladder with Drainage Device, Via Natural or Artificial Opening (ICD-10-PCS; principal; 2021-09-09)
DX: J18.9 Pneumonia, unspecified organism (principal); I50.23 Acute on chronic systolic (congestive) heart failure; G93.41 Metabolic encephalopathy; I13.0 Hypertensive heart and chronic kidney disease with heart failure and stage 1 through stage 4 chronic kidney disease, or unspecified chronic kidney disease; N39.0 Urinary tract infection, site not specified; N17.9 Acute kidney failure, unspecified; I25.810 Atherosclerosis of coronary artery bypass graft(s) without angina pectoris; J44.0 Chronic obstructive pulmonary disease with (acute) lower respiratory infection; Z23 Encounter for immunization; Z20.822 Contact with and (suspected) exposure to COVID-19; E78.5 Hyperlipidemia, unspecified; F17.210 Nicotine dependence, cigarettes, uncomplicated; F03.90 Unspecified dementia, unspecified severity, without behavioral disturbance, psychotic disturbance, mood disturbance, and anxiety; D64.9 Anemia, unspecified; R33.9 Retention of urine, unspecified; N40.0 Benign prostatic hyperplasia without lower urinary tract symptoms; E87.6 Hypokalemia; N18.30 Chronic kidney disease, stage 3 unspecified; Z95.1 Presence of aortocoronary bypass graft; I25.2 Old myocardial infarction; Z79.899 Other long term (current) drug therapy; Z95.810 Presence of automatic (implantable) cardiac defibrillator; Z79.82 Long term (current) use of aspirin; Z79.890 Hormone replacement therapy; Z79.51 Long term (current) use of inhaled steroids
CPT/HCPCS: 36415; 70450; 71045; 74230; 76705; 76770; 80048; 80053; 80069; 80074; 80143; 81003; 81015; 82140; 82550; 82553; 82570; 83690; 83735; 83880; 84145; 84300; 84443; 84484; 84540; 85025; 85027; 85610; 87040; 87086; 93005; 96365; 96366; 96375; 80307; J0692; J1650; J1940; J2543; J3370; J3490; U0002

== ENCOUNTER 2021-09-16 20:52 | Inpatient (IN) | payer OTHER ==
[2021-09-16 22:08] LABS: #Eosinphils 0.2 thou/uL (0.0-0.7); #Lymphocytes 1.1 thou/uL (1.20-3.40); #Monocytes 0.6 thou/uL (0.11-0.59); #Neutrophils 6.7 thou/uL (1.40-6.50); %Basophils 0.1 % (0.0-1.0); %Eosinophils 2.3 % (0.0-10.0); %Monocytes 7.1 % (0.0-10.0); %Neutrophils 77.5 % (42.0-75.0); Mean Corpuscular HGB CONC 32.1 g/dL (32.0-36.0); Mean Corpuscular Hemoglobin 31.5 pg (27.0-31.0); Mean Corpuscular Volume 98.4 fL (78.0-98.0); Platelet Count 199 thou/uL (130-400); RBC Distribution Width 17.7 % (11.5-14.5); Red Blood Cell (RBC) Count 4.13 mill/uL (4.70-6.10); White Blood Cell (WBC) Count 8.7 thou/uL (4.8-10.8)
[2021-09-16 22:30] LABS: ALT (SGPT) 103 U/L (8-55); AST (SGOT) 24 U/L (5-34); Albumin 3.3 g/dL (3.4-4.8); Alkaline Phosphatase 86 U/L (40-110); Anion Gap 16 mmol/L (10-20); BUN (Urea Nitrogen) 23 mg/dL (8.4-25.7); Bilirubin, Total 1.6 mg/dL (0.2-1.2); Calc. Creatinine Clearance 0 mL/min (70-130); Calcium 8.7 mg/dL (7.8-10.44); Carbon Dioxide 18 mmol/L (23-31); Chloride 108 mmol/L (98-107); Globulin 2.6 g/dL (2.4-3.5); Glucose 101 mg/dL (83-110); Lipase 12 U/L (8-78); Potassium 5.1 mmol/L (3.5-5.1); Protein, Total 5.9 g/dL (5.8-8.1); Sodium 137 mmol/L (136-145)
[2021-09-16 23:02] LABS: Bacteria/HPF 4+ HPF (None Seen); Bilirubin Negative (Negative); Blood, Urine 3+ (Negative); Clarity Extra Turbid (Clear); Glucose, Urine (Dipstick) Normal (Negative); Ketone, Urine Negative (Negative); Leukocyte 250 Leu/uL (Negative); Mucous/LPF 4+ LPF (<2+); Nitrite Negative (Negative); Protein, Urine (Dipstick) 100 mg/dL (Neg-Trace); RBC/HPF Greater than 50 HPF (0-3); Specific Gravity, Urine 1.018 (1.002-1.036); Squamous Epithelial None Seen HPF (0-3); Urobilinogen Normal mg/dL (Less than 2); WBC/HPF Greater than 50 HPF (0-3); pH, Urine 5.5 (5.0-9.0)
[2021-09-16] MEDS ORDERED: Furosemide 40 MG/4 ML VIAL ONE (23:19)
[2021-09-16] MEDS ORDERED: Nitroglycerin 2% Ointment 1 INCH/1 GM Packet ONE (23:19)
[2021-09-16 23:21] LABS: CKMB 3.8 ng/mL (0-6.6)
[2021-09-17] MEDS ORDERED: methylPREDNISolone Sod Succ 40 MG VIAL ONE (01:12)
[2021-09-17 02:00] LABS: Troponin I 0.025 ng/mL (< 0.028)
[2021-09-17] MEDS ORDERED: Ondansetron PF 4 MG/2 ML Vial IVP PRN (03:15)
[2021-09-17] MEDS ORDERED: Ondansetron ODT 4 MG TAB SL PRN (03:15)
[2021-09-17] MEDS ORDERED: Acetaminophen 325 MG TAB PO PRN ×2 (03:15→07:37)
[2021-09-17 05:15] LABS: Troponin I 0.023 ng/mL (< 0.028)
[2021-09-17 07:06] LABS: #Lymphocytes 0.4 thou/uL (1.20-3.40); #Monocytes 0.1 thou/uL (0.11-0.59); #Neutrophils 5.5 thou/uL (1.40-6.50); %Basophils 0.1 % (0.0-1.0); %Eosinophils 0.4 % (0.0-10.0); %Lymphocytes 6.3 % (21.0-51.0); %Monocytes 1.5 % (0.0-10.0); %Neutrophils 91.8 % (42.0-75.0); Hemoglobin 12.2 g/dL (14.0-18.0); Mean Corpuscular HGB CONC 31.2 g/dL (32.0-36.0); Mean Corpuscular Hemoglobin 30.9 pg (27.0-31.0); Mean Corpuscular Volume 99.2 fL (78.0-98.0); Mean Platelet Volume 7.7 fL (7.4-10.4); Platelet Count 209 thou/uL (130-400); RBC Distribution Width 17.5 % (11.5-14.5); Red Blood Cell (RBC) Count 3.96 mill/uL (4.70-6.10); White Blood Cell (WBC) Count 5.9 thou/uL (4.8-10.8)
[2021-09-17 07:32] LABS: Anion Gap 16 mmol/L (10-20); BUN (Urea Nitrogen) 22 mg/dL (8.4-25.7); Calc. Creatinine Clearance 33 mL/min (70-130); Calcium 8.9 mg/dL (7.8-10.44); Carbon Dioxide 18 mmol/L (23-31); Chloride 108 mmol/L (98-107); Glucose 111 mg/dL (83-110); Magnesium 2.2 mg/dL (1.6-2.6); Potassium 4.4 mmol/L (3.5-5.1); Sodium 138 mmol/L (136-145)
[2021-09-17] MEDS ORDERED: Ondansetron ODT 4 MG TAB PO PRN (07:37)
[2021-09-17] MEDS ORDERED: Calcium Carbonate 500 MG ChewTAB PO PRN (07:37)
[2021-09-17] MEDS ORDERED: Senokot S 8.6-50 MG TAB PO PRN (07:37)
[2021-09-17] MEDS ORDERED: Albuterol 200 PUFF (6.7GM INHALER) INH PRN (07:42)
[2021-09-17] MEDS ORDERED: Cefdinir 300 MG CAP PO SCH (09:00)
[2021-09-17] MEDS ORDERED: Enoxaparin Sodium 30 MG/0.3 ML SYRINGE SC SCH (09:00)
[2021-09-17] MEDS ORDERED: Clopidogrel Bisulfate 75 MG TAB PO SCH (09:00)
[2021-09-17] MEDS ORDERED: Aspirin 81 mg Enteric Coated Tablet PO SCH (09:00)
[2021-09-17] MEDS: cefTRIAXone\\ROCEPHIN 1 GM in Sodium Chloride 0.9% 100 ML IVPB SCH (09:55)
[2021-09-17] MEDS: Sodium Bicarbonate Tab 325 MG TAB PO SCH ×2 (09:56→21:27)
[2021-09-17] MEDS: Carvedilol 3.125 MG TAB PO SCH ×2 (09:57→21:30)
[2021-09-17] MEDS: Ezetimibe 10 MG TAB PO SCH (09:57)
[2021-09-17] MEDS: Folic Acid 1 MG TAB PO SCH (09:57)
[2021-09-17] MEDS: Cholecalciferol 1,000 UNITS (25 MCG) TAB PO SCH (09:57)
[2021-09-17] MEDS: Saccharomyces boulardii 250 MG CAP PO SCH (09:57)
[2021-09-17] MEDS: Potassium Chloride 20 MEQ TAB PO SCH ×2 (09:58→18:24)
[2021-09-17 11:56] LABS: SARS-CoV-2 PCR by NAA Not Detected (NotDetected)
[2021-09-17] MEDS ORDERED: Furosemide 40 MG/4 ML VIAL SLOW IVP SCH (14:00)
[2021-09-17 16:09] LABS: Hemoglobin 11.7 g/dL (14.0-18.0)
[2021-09-17 16:30] LABS: INR-International Normal Ratio 1.2; Prothrombin Time 15.8 sec (12.0-14.7)
[2021-09-17 16:31] LABS: PTT 45.8 sec (22.9-36.1)
[2021-09-17] MEDS: Melatonin 3 MG TAB PO SCH (21:28)
[2021-09-17] MEDS: Simvastatin 10 MG TAB PO SCH (21:29)
[2021-09-17] MEDS: Tamsulosin HCl 0.4 MG CAP PO SCH (21:30)
[2021-09-17] MEDS: Famotidine 20 MG TAB PO SCH (21:30)
[2021-09-17 22:20] LABS: Hemoglobin 11.9 g/dL (14.0-18.0)
[2021-09-18] MEDS: Levothyroxine Sodium 25 MCG TAB PO SCH (04:56)
[2021-09-18 05:32] LABS: #Basophils 0.1 thou/uL (0.0-0.2); #Monocytes 0.7 thou/uL (0.11-0.59); #Neutrophils 9.2 thou/uL (1.40-6.50); %Basophils 0.5 % (0.0-1.0); %Eosinophils 0.4 % (0.0-10.0); %Lymphocytes 8.7 % (21.0-51.0); %Monocytes 6.4 % (0.0-10.0); Hemoglobin 12.2 g/dL (14.0-18.0); Mean Corpuscular HGB CONC 30.8 g/dL (32.0-36.0); Mean Corpuscular Hemoglobin 31.1 pg (27.0-31.0); Mean Platelet Volume 7.7 fL (7.4-10.4); Platelet Count 211 thou/uL (130-400); RBC Distribution Width 17.7 % (11.5-14.5); Red Blood Cell (RBC) Count 3.92 mill/uL (4.70-6.10)
[2021-09-18 06:16] LABS: ALT (SGPT) 72 U/L (8-55); AST (SGOT) 18 U/L (5-34); Albumin 3.1 g/dL (3.4-4.8); Alkaline Phosphatase 73 U/L (40-110); Anion Gap 17 mmol/L (10-20); BUN (Urea Nitrogen) 26 mg/dL (8.4-25.7); Bilirubin, Total 1.4 mg/dL (0.2-1.2); Calc. Creatinine Clearance 29 mL/min (70-130); Carbon Dioxide 16 mmol/L (23-31); Chloride 108 mmol/L (98-107); Globulin 2.7 g/dL (2.4-3.5); Glucose 105 mg/dL (83-110); Potassium 5.2 mmol/L (3.5-5.1); Protein, Total 5.8 g/dL (5.8-8.1); Sodium 136 mmol/L (136-145)
[2021-09-18] MEDS: Folic Acid 1 MG TAB PO SCH (09:27)
[2021-09-18] MEDS: Carvedilol 3.125 MG TAB PO SCH ×2 (09:27→19:45)
[2021-09-18] MEDS: Saccharomyces boulardii 250 MG CAP PO SCH (09:27)
[2021-09-18] MEDS: Cholecalciferol 1,000 UNITS (25 MCG) TAB PO SCH (09:27)
[2021-09-18] MEDS: Ezetimibe 10 MG TAB PO SCH (09:27)
[2021-09-18] MEDS: Potassium Chloride 20 MEQ TAB PO SCH (09:27)
[2021-09-18] MEDS: Sodium Bicarbonate Tab 325 MG TAB PO SCH ×2 (09:27→19:44)
[2021-09-18] MEDS: cefTRIAXone\\ROCEPHIN 1 GM in Sodium Chloride 0.9% 100 ML IVPB SCH (09:28)
[2021-09-18] MEDS: Simvastatin 10 MG TAB PO SCH (19:44)
[2021-09-18] MEDS: Famotidine 20 MG TAB PO SCH (19:44)
[2021-09-18] MEDS: Tamsulosin HCl 0.4 MG CAP PO SCH (19:44)
[2021-09-18] MEDS: Melatonin 3 MG TAB PO SCH (19:44)
[2021-09-19] MEDS: Levothyroxine Sodium 25 MCG TAB PO SCH (05:17)
[2021-09-19] MEDS: Carvedilol 3.125 MG TAB PO SCH ×2 (09:21→20:35)
[2021-09-19] MEDS: Cholecalciferol 1,000 UNITS (25 MCG) TAB PO SCH (09:21)
[2021-09-19] MEDS: cefTRIAXone\\ROCEPHIN 1 GM in Sodium Chloride 0.9% 100 ML IVPB SCH ×2 (09:21→12:35)
[2021-09-19] MEDS: Folic Acid 1 MG TAB PO SCH (09:22)
[2021-09-19] MEDS: Ezetimibe 10 MG TAB PO SCH (09:22)
[2021-09-19] MEDS: Saccharomyces boulardii 250 MG CAP PO SCH (09:22)
[2021-09-19] MEDS: Sodium Bicarbonate Tab 325 MG TAB PO SCH ×2 (09:22→20:35)
[2021-09-19 11:12] LABS: #Eosinphils 0.1 thou/uL (0.0-0.7); #Lymphocytes 0.8 thou/uL (1.20-3.40); #Monocytes 0.6 thou/uL (0.11-0.59); #Neutrophils 7.3 thou/uL (1.40-6.50); %Basophils 0.5 % (0.0-1.0); %Eosinophils 0.6 % (0.0-10.0); %Lymphocytes 9.1 % (21.0-51.0); %Monocytes 6.5 % (0.0-10.0); %Neutrophils 83.4 % (42.0-75.0); Hemoglobin 12.4 g/dL (14.0-18.0); Mean Corpuscular HGB CONC 31.9 g/dL (32.0-36.0); Mean Corpuscular Hemoglobin 31.2 pg (27.0-31.0); Mean Platelet Volume 7.7 fL (7.4-10.4); Platelet Count 218 thou/uL (130-400); Red Blood Cell (RBC) Count 3.96 mill/uL (4.70-6.10); White Blood Cell (WBC) Count 8.7 thou/uL (4.8-10.8)
[2021-09-19 11:31] LABS: Anion Gap 17 mmol/L (10-20); BUN (Urea Nitrogen) 33 mg/dL (8.4-25.7); Calc. Creatinine Clearance 26 mL/min (70-130); Calcium 8.7 mg/dL (7.8-10.44); Carbon Dioxide 16 mmol/L (23-31); Chloride 108 mmol/L (98-107); Glucose 81 mg/dL (83-110); Sodium 136 mmol/L (136-145)
[2021-09-19] MEDS ORDERED: Dextrose 5 % And 0.9 % NaCl 1,000 ML IV SCH (15:00)
[2021-09-19] MEDS: Simvastatin 10 MG TAB PO SCH (20:35)
[2021-09-19] MEDS: Famotidine 20 MG TAB PO SCH (20:36)
[2021-09-19] MEDS: Melatonin 3 MG TAB PO SCH (20:36)
[2021-09-19] MEDS: Tamsulosin HCl 0.4 MG CAP PO SCH (20:37)
[2021-09-20] MEDS: DOBUTamine 500 mg/250 ml 250 ML IVPB SCH (00:22)
[2021-09-20 04:56] LABS: #Eosinphils 0.1 thou/uL (0.0-0.7); #Lymphocytes 0.7 thou/uL (1.20-3.40); #Monocytes 0.5 thou/uL (0.11-0.59); #Neutrophils 6.9 thou/uL (1.40-6.50); %Basophils 0.3 % (0.0-1.0); %Eosinophils 1.7 % (0.0-10.0); %Lymphocytes 8.8 % (21.0-51.0); %Monocytes 6.3 % (0.0-10.0); Hemoglobin 11.5 g/dL (14.0-18.0); Mean Corpuscular HGB CONC 31.6 g/dL (32.0-36.0); Mean Corpuscular Hemoglobin 31.1 pg (27.0-31.0); Mean Corpuscular Volume 98.6 fL (78.0-98.0); Mean Platelet Volume 7.5 fL (7.4-10.4); Platelet Count 195 thou/uL (130-400); RBC Distribution Width 17.5 % (11.5-14.5); Red Blood Cell (RBC) Count 3.69 mill/uL (4.70-6.10); White Blood Cell (WBC) Count 8.3 thou/uL (4.8-10.8)
[2021-09-20 05:18] LABS: Anion Gap 12 mmol/L (10-20); BUN (Urea Nitrogen) 29 mg/dL (8.4-25.7); Calc. Creatinine Clearance 30 mL/min (70-130); Calcium 8.5 mg/dL (7.8-10.44); Carbon Dioxide 18 mmol/L (23-31); Chloride 110 mmol/L (98-107); Glucose 78 mg/dL (83-110); Potassium 4.3 mmol/L (3.5-5.1); Sodium 136 mmol/L (136-145)
[2021-09-20] MEDS: Levothyroxine Sodium 25 MCG TAB PO SCH (06:02)
[2021-09-20] MEDS ORDERED: FLU VACC QS2021-22(65YR UP)/PF 240 MCG/0.7 ML SYRINGE IM ONE (09:00)
[2021-09-20] MEDS: Cholecalciferol 1,000 UNITS (25 MCG) TAB PO SCH (09:36)
[2021-09-20] MEDS: Carvedilol 3.125 MG TAB PO SCH ×2 (09:36→16:11)
[2021-09-20] MEDS: Ezetimibe 10 MG TAB PO SCH (09:37)
[2021-09-20] MEDS: Folic Acid 1 MG TAB PO SCH (09:37)
[2021-09-20] MEDS: Saccharomyces boulardii 250 MG CAP PO SCH (09:38)
[2021-09-20] MEDS: Sodium Bicarbonate Tab 325 MG TAB PO SCH ×2 (09:38→21:04)
[2021-09-20] MEDS ORDERED: Dextrose 5 % And 0.9 % NaCl 1,000 ML IV SCH (10:15)
[2021-09-20] MEDS: Tamsulosin HCl 0.4 MG CAP PO SCH (21:04)
[2021-09-20] MEDS: Famotidine 20 MG TAB PO SCH (21:04)
[2021-09-20] MEDS: Simvastatin 10 MG TAB PO SCH (21:04)
[2021-09-20] MEDS: Melatonin 3 MG TAB PO SCH (21:04)
[2021-09-21] MEDS: Levothyroxine Sodium 25 MCG TAB PO SCH (05:51)
[2021-09-21] MEDS: DOBUTamine 500 mg/250 ml 250 ML IVPB SCH (05:52)
[2021-09-21] MEDS: Sodium Bicarbonate Tab 325 MG TAB PO SCH ×2 (10:12→21:42)
[2021-09-21] MEDS: Folic Acid 1 MG TAB PO SCH (10:13)
[2021-09-21] MEDS: Carvedilol 3.125 MG TAB PO SCH ×2 (10:13→16:43)
[2021-09-21] MEDS: Ezetimibe 10 MG TAB PO SCH (10:13)
[2021-09-21] MEDS: Saccharomyces boulardii 250 MG CAP PO SCH (10:13)
[2021-09-21] MEDS: Cholecalciferol 1,000 UNITS (25 MCG) TAB PO SCH (10:13)
[2021-09-21 12:03] LABS: Anion Gap 15 mmol/L (10-20); BUN (Urea Nitrogen) 25 mg/dL (8.4-25.7); Calc. Creatinine Clearance 37 mL/min (70-130); Calcium 8.6 mg/dL (7.8-10.44); Carbon Dioxide 17 mmol/L (23-31); Chloride 106 mmol/L (98-107); Glucose 74 mg/dL (83-110); Sodium 134 mmol/L (136-145)
[2021-09-21] MEDS: Furosemide 40 MG/4 ML VIAL SLOW IVP SCH (15:17)
[2021-09-21] MEDS: Tamsulosin HCl 0.4 MG CAP PO SCH (21:42)
[2021-09-21] MEDS: Famotidine 20 MG TAB PO SCH (21:42)
[2021-09-21] MEDS: Simvastatin 10 MG TAB PO SCH (21:42)
[2021-09-21] MEDS: Melatonin 3 MG TAB PO SCH (21:42)
[2021-09-22 04:42] LABS: Anion Gap 15 mmol/L (10-20); BUN (Urea Nitrogen) 25 mg/dL (8.4-25.7); Calc. Creatinine Clearance 35 mL/min (70-130); Calcium 8.7 mg/dL (7.8-10.44); Carbon Dioxide 17 mmol/L (23-31); Chloride 107 mmol/L (98-107); Glucose 81 mg/dL (83-110); Potassium 3.9 mmol/L (3.5-5.1); Sodium 135 mmol/L (136-145)
[2021-09-22] MEDS: Furosemide 40 MG/4 ML VIAL SLOW IVP SCH (06:09)
[2021-09-22] MEDS: Levothyroxine Sodium 25 MCG TAB PO SCH (06:09)
[2021-09-22] MEDS: Cholecalciferol 1,000 UNITS (25 MCG) TAB PO SCH (10:39)
[2021-09-22] MEDS: Saccharomyces boulardii 250 MG CAP PO SCH (10:40)
[2021-09-22] MEDS: Sodium Bicarbonate Tab 325 MG TAB PO SCH ×2 (10:40→21:36)
[2021-09-22] MEDS: Ezetimibe 10 MG TAB PO SCH (10:40)
[2021-09-22] MEDS: Folic Acid 1 MG TAB PO SCH (10:40)
[2021-09-22] MEDS: Carvedilol 3.125 MG TAB PO SCH ×2 (10:40→17:04)
[2021-09-22] MEDS: Famotidine 20 MG TAB PO SCH (21:36)
[2021-09-22] MEDS: Simvastatin 10 MG TAB PO SCH (21:36)
[2021-09-22] MEDS: Tamsulosin HCl 0.4 MG CAP PO SCH (21:36)
[2021-09-22] MEDS: Melatonin 3 MG TAB PO SCH (21:36)
[2021-09-23] MEDS: Levothyroxine Sodium 25 MCG TAB PO SCH (06:48)
[2021-09-23 07:29] LABS: Anion Gap 17 mmol/L (10-20); BUN (Urea Nitrogen) 24 mg/dL (8.4-25.7); Calc. Creatinine Clearance 30 mL/min (70-130); Calcium 8.7 mg/dL (7.8-10.44); Carbon Dioxide 17 mmol/L (23-31); Chloride 102 mmol/L (98-107); Glucose 229 mg/dL (83-110); Potassium 3.7 mmol/L (3.5-5.1); Sodium 132 mmol/L (136-145)
[2021-09-23] MEDS: Folic Acid 1 MG TAB PO SCH (09:15)
[2021-09-23] MEDS: Carvedilol 3.125 MG TAB PO SCH ×2 (09:15→17:44)
[2021-09-23] MEDS: Saccharomyces boulardii 250 MG CAP PO SCH (09:15)
[2021-09-23] MEDS: Sodium Bicarbonate Tab 325 MG TAB PO SCH ×2 (09:15→22:34)
[2021-09-23] MEDS: Furosemide 40 MG TAB PO SCH (09:15)
[2021-09-23] MEDS: Ezetimibe 10 MG TAB PO SCH (09:16)
[2021-09-23] MEDS: Cholecalciferol 1,000 UNITS (25 MCG) TAB PO SCH (09:17)
[2021-09-23 19:39] LABS: SARS-CoV-2 PCR by NAA Not Detected (NotDetected)
[2021-09-23] MEDS: Tamsulosin HCl 0.4 MG CAP PO SCH (22:34)
[2021-09-23] MEDS: Melatonin 3 MG TAB PO SCH (22:34)
[2021-09-23] MEDS: Famotidine 20 MG TAB PO SCH (22:34)
[2021-09-23] MEDS: Simvastatin 10 MG TAB PO SCH (22:34)
[2021-09-24] MEDS: DOBUTamine 500 mg/250 ml 250 ML IVPB SCH (03:30)
[2021-09-24 04:46] LABS: Anion Gap 17 mmol/L (10-20); BUN (Urea Nitrogen) 26 mg/dL (8.4-25.7); Calc. Creatinine Clearance 27 mL/min (70-130); Calcium 9.2 mg/dL (7.8-10.44); Carbon Dioxide 20 mmol/L (23-31); Chloride 106 mmol/L (98-107); Glucose 80 mg/dL (83-110); Potassium 4.2 mmol/L (3.5-5.1); Sodium 139 mmol/L (136-145)
[2021-09-24] MEDS: Levothyroxine Sodium 25 MCG TAB PO SCH (06:55)
[2021-09-24] MEDS ORDERED: Fentanyl 250 MCG/5 ML VIAL ONE (08:37)
[2021-09-24] MEDS ORDERED: Ketamine 50 MG/ML (10ML VIAL) ONE (08:37)
[2021-09-24] MEDS ORDERED: ePHEDrine Sulfate 50 MG/10 ML VIAL ONE (08:37)
[2021-09-24] MEDS ORDERED: PHENYLEPHRINE-NS 100 MCG/ML 10 ML SYRINGE ONE (08:37)
[2021-09-24] MEDS ORDERED: Phenylephrine 10 MG/ML VIAL ONE (08:41)
[2021-09-24] MEDS ORDERED: Levofloxacin 500 mg/D5W 100 ml Premix Bag ONE (08:47)
[2021-09-24] MEDS: Furosemide 40 MG TAB PO SCH (09:47)
[2021-09-24] MEDS: Carvedilol 3.125 MG TAB PO SCH ×2 (09:49→17:12)
[2021-09-24] MEDS: Folic Acid 1 MG TAB PO SCH (09:50)
[2021-09-24] MEDS: Cholecalciferol 1,000 UNITS (25 MCG) TAB PO SCH (09:50)
[2021-09-24] MEDS: Ezetimibe 10 MG TAB PO SCH (09:50)
[2021-09-24] MEDS: Sodium Bicarbonate Tab 325 MG TAB PO SCH ×2 (09:52→20:51)
[2021-09-24] MEDS: Saccharomyces boulardii 250 MG CAP PO SCH (09:52)
[2021-09-24] MEDS: Furosemide 20 MG/2 ML VIAL SLOW IVP SCH ×2 (14:10→18:38)
[2021-09-24] MEDS: Melatonin 3 MG TAB PO SCH (20:50)
[2021-09-24] MEDS: Famotidine 20 MG TAB PO SCH (20:50)
[2021-09-24] MEDS: Tamsulosin HCl 0.4 MG CAP PO SCH (20:51)
[2021-09-24] MEDS: Simvastatin 10 MG TAB PO SCH (20:51)
[2021-09-25 05:43] LABS: Anion Gap 15 mmol/L (10-20); BUN (Urea Nitrogen) 18 mg/dL (8.4-25.7); Calc. Creatinine Clearance 38 mL/min (70-130); Calcium 8.9 mg/dL (7.8-10.44); Carbon Dioxide 24 mmol/L (23-31); Chloride 107 mmol/L (98-107); Glucose 65 mg/dL (83-110); Potassium 3.3 mmol/L (3.5-5.1); Sodium 143 mmol/L (136-145)
[2021-09-25] MEDS: Levothyroxine Sodium 25 MCG TAB PO SCH (05:47)
[2021-09-25] MEDS: Furosemide 20 MG/2 ML VIAL SLOW IVP SCH ×2 (05:47→15:15)
[2021-09-25] MEDS ORDERED: Potassium Chloride 20 MEQ TAB PO SCH (07:45)
[2021-09-25] MEDS ORDERED: DOBUTamine 500 mg/250 ml 250 ML IVPB SCH ×2 (10:44→13:15)
[2021-09-25] MEDS: Folic Acid 1 MG TAB PO SCH (11:20)
[2021-09-25] MEDS: Carvedilol 3.125 MG TAB PO SCH ×2 (11:20→16:48)
[2021-09-25] MEDS: Cholecalciferol 1,000 UNITS (25 MCG) TAB PO SCH (11:20)
[2021-09-25] MEDS: Ezetimibe 10 MG TAB PO SCH (11:20)
[2021-09-25] MEDS: Sodium Bicarbonate Tab 325 MG TAB PO SCH ×2 (11:21→20:46)
[2021-09-25] MEDS: Saccharomyces boulardii 250 MG CAP PO SCH (11:21)
[2021-09-25] MEDS: Famotidine 20 MG TAB PO SCH (20:43)
[2021-09-25] MEDS: Melatonin 3 MG TAB PO SCH (20:43)
[2021-09-25] MEDS: Simvastatin 10 MG TAB PO SCH (20:44)
[2021-09-25] MEDS: Tamsulosin HCl 0.4 MG CAP PO SCH (20:44)
[2021-09-26] MEDS: Furosemide 20 MG/2 ML VIAL SLOW IVP SCH ×2 (05:53→13:41)
[2021-09-26] MEDS: Levothyroxine Sodium 25 MCG TAB PO SCH (05:57)
[2021-09-26 06:00] LABS: Anion Gap 15 mmol/L (10-20); BUN (Urea Nitrogen) 16 mg/dL (8.4-25.7); Calc. Creatinine Clearance 41 mL/min (70-130); Calcium 8.7 mg/dL (7.8-10.44); Carbon Dioxide 25 mmol/L (23-31); Chloride 108 mmol/L (98-107); Glucose 63 mg/dL (83-110); Sodium 145 mmol/L (136-145)
[2021-09-26 06:06] LABS: Potassium 2.7 mmol/L (3.5-5.1)
[2021-09-26] MEDS ORDERED: Electrolyte Replacement Protocol FS PRN ×2 (07:00)
[2021-09-26] MEDS ORDERED: Potassium Chloride 20 MEQ TAB PO SCH (08:00)
[2021-09-26] MEDS: Potassium Chloride 20 MEQ in Premix Bag 1 BAG IVPB SCH ×4 (08:57→15:35)
[2021-09-26] MEDS: Ezetimibe 10 MG TAB PO SCH (09:03)
[2021-09-26] MEDS: Carvedilol 3.125 MG TAB PO SCH ×3 (09:03→21:09)
[2021-09-26] MEDS: Cholecalciferol 1,000 UNITS (25 MCG) TAB PO SCH (09:08)
[2021-09-26] MEDS: Sodium Bicarbonate Tab 325 MG TAB PO SCH ×2 (09:08→21:09)
[2021-09-26] MEDS: Folic Acid 1 MG TAB PO SCH (09:08)
[2021-09-26] MEDS: Saccharomyces boulardii 250 MG CAP PO SCH (09:13)
[2021-09-26 14:36] VITALS: BMI 18.4
[2021-09-26 20:31] LABS: Potassium 3.6 mmol/L (3.5-5.1)
[2021-09-26] MEDS: Tamsulosin HCl 0.4 MG CAP PO SCH (21:09)
[2021-09-26] MEDS: Simvastatin 10 MG TAB PO SCH (21:10)
[2021-09-26] MEDS: Famotidine 20 MG TAB PO SCH (21:10)
[2021-09-26] MEDS: Melatonin 3 MG TAB PO SCH (21:12)
[2021-09-27] MEDS: Levothyroxine Sodium 25 MCG TAB PO SCH (05:34)
[2021-09-27 05:49] LABS: Anion Gap 20 mmol/L (10-20); BUN (Urea Nitrogen) 23 mg/dL (8.4-25.7); Calc. Creatinine Clearance 25 mL/min (70-130); Calcium 9.3 mg/dL (7.8-10.44); Carbon Dioxide 21 mmol/L (23-31); Chloride 111 mmol/L (98-107); Glucose 111 mg/dL (83-110); Potassium 4.1 mmol/L (3.5-5.1); Sodium 148 mmol/L (136-145)
[2021-09-27] MEDS: Furosemide 20 MG/2 ML VIAL SLOW IVP SCH (06:41)
[2021-09-27] MEDS ORDERED: Magnesium 2 GM/50 ML 2 GM in Premix Bag 1 BAG IVPB SCH (06:45)
[2021-09-27] MEDS ORDERED: Dextrose 5% in Water 500 ML IV SCH (08:45)
[2021-09-27] MEDS: Carvedilol 3.125 MG TAB PO SCH ×3 (09:25→21:54)
[2021-09-27] MEDS: Ezetimibe 10 MG TAB PO SCH (09:25)
[2021-09-27] MEDS: Cholecalciferol 1,000 UNITS (25 MCG) TAB PO SCH (09:25)
[2021-09-27] MEDS: Folic Acid 1 MG TAB PO SCH (09:25)
[2021-09-27] MEDS: Sodium Bicarbonate Tab 325 MG TAB PO SCH (09:26)
[2021-09-27] MEDS: Saccharomyces boulardii 250 MG CAP PO SCH (09:26)
[2021-09-27 09:42] LABS: ALT (SGPT) 28 U/L (8-55); AST (SGOT) 48 U/L (5-34); Albumin 2.9 g/dL (3.4-4.8); Alkaline Phosphatase 65 U/L (40-110); Bilirubin, Total 2.3 mg/dL (0.2-1.2); Phosphorus 3.1 mg/dL (2.3-4.7)
[2021-09-27] MEDS ORDERED: Cefepime 1 GM in Sodium Chloride 0.9% 100 ML IVPB SCH (10:00)
[2021-09-27 15:17] LABS: Actual Bicarbonate (HCO3a) 21.2 mEq/L (22-28); Base Excess (BEa) 1.1 mEq/L (-2.0 to +3.0); Calcium, Ionized (arterial) 1.15 mmol/L (1.12-1.30); Carboxyhemoglobin (COHb) 1.3 gm% (0.0-3.0); Hemoglobin (Hb) 13.4 g/dL (14.0-18.0); O2 Tension (PaO2), arterial 68.4 mmHg (> 60.0); Potassium - ABG Lab 3.77 mmol/L (3.70-5.30)
[2021-09-27 15:20] LABS: Puncture Site LBA; pH, Arterial 7.58 (7.35-7.45)
[2021-09-27] MEDS ORDERED: Acetaminophen 650 MG Suppository PR PRN (16:54)
[2021-09-27] MEDS ORDERED: Lorazepam 2 MG/ML VIAL SLOW IVP PRN (16:57)
[2021-09-27] MEDS: Morphine 4 MG/ML VIAL SLOW IVP PRN (22:16)
[2021-09-28] MEDS: Morphine 4 MG/ML VIAL SLOW IVP PRN ×3 (02:42→10:29)
[2021-09-28] MEDS: Levothyroxine Sodium 25 MCG TAB PO SCH (04:51)
[2021-09-28] MEDS ORDERED: Lorazepam 2 MG/ML VIAL SLOW IVP PRN (07:15)
[2021-09-28] MEDS ORDERED: Scopolamine 1.5 mg/72 hour Patch TD SCH (08:00)
[2021-09-28] MEDS: Cholecalciferol 1,000 UNITS (25 MCG) TAB PO SCH (10:57)
[2021-09-28] MEDS: Folic Acid 1 MG TAB PO SCH (10:57)
[2021-09-28] MEDS: Carvedilol 3.125 MG TAB PO SCH ×2 (10:57→16:33)
[2021-09-28] MEDS ORDERED: Cefepime 0.5 GM, Admixture Fee 1 EACH in Sodium Chloride 0.9% 100 ML IVPB SCH (11:00)
[2021-09-28 19:30] VITALS: BP 87/55; TEMP 99.9
== END 2021-09-28 20:38 | disposition hospice, home (50) | DRG 264 ==
LOC: ERS 20:52 → 2NO 09-17 01:19 → SURG A 09-27 17:57
PROVIDERS: ADMIT Internal Medicine; ATTEND Family Medicine
PROC: 3E033XZ Introduction of Vasopressor into Peripheral Vein, Percutaneous Approach (ICD-10-PCS; principal; 2021-09-17)
PROC: 0W3R8ZZ Control Bleeding in Genitourinary Tract, Via Natural or Artificial Opening Endoscopic (ICD-10-PCS; 2021-09-24)
PROC: 0TCC8ZZ Extirpation of Matter from Bladder Neck, Via Natural or Artificial Opening Endoscopic (ICD-10-PCS; 2021-09-24)
PROC: 3E1K78Z Irrigation of Genitourinary Tract using Irrigating Substance, Via Natural or Artificial Opening (ICD-10-PCS; 2021-09-24)
DX: I13.0 Hypertensive heart and chronic kidney disease with heart failure and stage 1 through stage 4 chronic kidney disease, or unspecified chronic kidney disease (principal); I50.23 Acute on chronic systolic (congestive) heart failure; J18.9 Pneumonia, unspecified organism; T83.511A Infection and inflammatory reaction due to indwelling urethral catheter, initial encounter; N17.9 Acute kidney failure, unspecified; E87.3 Alkalosis; E44.1 Mild protein-calorie malnutrition; N13.8 Other obstructive and reflux uropathy; J44.0 Chronic obstructive pulmonary disease with (acute) lower respiratory infection; Z68.1 Body mass index [BMI] 19.9 or less, adult; G93.49 Other encephalopathy; F05 Delirium due to known physiological condition; J98.11 Atelectasis; Z66 Do not resuscitate; Z51.5 Encounter for palliative care; Z20.822 Contact with and (suspected) exposure to COVID-19; I50.84 End stage heart failure; F03.90 Unspecified dementia, unspecified severity, without behavioral disturbance, psychotic disturbance, mood disturbance, and anxiety; E03.9 Hypothyroidism, unspecified; K40.90 Unilateral inguinal hernia, without obstruction or gangrene, not specified as recurrent; N40.1 Benign prostatic hyperplasia with lower urinary tract symptoms; R33.8 Other retention of urine; Y84.6 Urinary catheterization as the cause of abnormal reaction of the patient, or of later complication, without mention of misadventure at the time of the procedure; E78.5 Hyperlipidemia, unspecified; G40.409 Other generalized epilepsy and epileptic syndromes, not intractable, without status epilepticus; F17.210 Nicotine dependence, cigarettes, uncomplicated; I25.10 Atherosclerotic heart disease of native coronary artery without angina pectoris; D63.1 Anemia in chronic kidney disease; N18.32 Chronic kidney disease, stage 3b; I25.5 Ischemic cardiomyopathy; R09.02 Hypoxemia; N30.91 Cystitis, unspecified with hematuria; E87.6 Hypokalemia; Z95.1 Presence of aortocoronary bypass graft; Z78.1 Physical restraint status; I25.2 Old myocardial infarction; Z87.440 Personal history of urinary (tract) infections; Z79.899 Other long term (current) drug therapy; Z79.82 Long term (current) use of aspirin; Z79.02 Long term (current) use of antithrombotics/antiplatelets; Z79.890 Hormone replacement therapy; Z90.89 Acquired absence of other organs; Z98.890 Other specified postprocedural states; Q54.9 Hypospadias, unspecified; Z95.5 Presence of coronary angioplasty implant and graft; Z95.810 Presence of automatic (implantable) cardiac defibrillator
CPT/HCPCS: 36415; 36416; 36600; 70450; 71045; 74176; 76770; 80048; 80053; 80076; 81003; 81015; 82140; 82550; 82553; 82805; 83605; 83690; 83735; 83880; 84100; 84443; 84484; 85025; 85610; 85730; 86850; 86900; 86901; 87040; 87086; 93005; 93798; 94640; 94760; 96374; 96375; J0692; J0696; J1250; J1650; J1940; J1956; J2060; J2270; J2370; J2920; J3010; J3475; J3480; J3490; J7042; J7070; J7620; U0003; U0005